=== PATIENT | male | born 1935 | race Caucasian/White ===

== ENCOUNTER 2017-02-14 17:26 | Emergency (ER) | payer OTHER ==
[~2017-02-14] VITALS: Ht 177.8 cm; Wt 75.0 kg
[~2017-02-14 17:26] MED LIST: ASPI81TA28 PO; ATEN50TA PO; LISI20TA3 PO; SIMV40TA2 PO
[2017-02-14 17:31] VITALS: TEMP 36.6; Ht 177.8 cm; Wt 75.0 kg
--- NOTE | 2017-02-14 18:25 | DIAGNOSTIC IMAGING REPORT ---
LEFT ELBOW MIN 3 VIEWS ROUTINE CLINICAL HISTORY: Left medial elbow pain, no trauma pain COMPARISON: None. DISCUSSION: Mild degenerative change all major joint compartments. Minimal reactive osteophytic changes throughout. Minimal/mild chondrocalcinosis. No evidence for fracture or dislocation. No joint effusion. IMPRESSION: Mild degenerative change. No acute bony abnormality Electronically signed by: Daniel Mandel M.D. 02/14/2017 6:23 PM Dictated Date/Time: 02/14/2017 6:22 PM
[2017-02-14] MEDS ORDERED: TNR50 PO (18:28)
[2017-02-14] MEDS ORDERED: ZCR40 PO (18:28)
[2017-02-14] MEDS ORDERED: LSN40 PO (18:28)
[2017-02-14] MEDS ORDERED: NRV/5 PO (18:28)
--- NOTE | 2017-02-14 19:07 | DIAGNOSTIC IMAGING REPORT ---
VENOUS DOPPLER LEFT ARM UPPER EXTREMITY VENOUS DOPPLER HISTORY: Pain. Edema. Left medial mid arm pain, transient. COMPARISON STUDY: None. FINDINGS: The internal jugular vein is patent. There is normal flow within the subclavian vein. There is normal flow and compressibility within the left axillary, basilic, brachial, radial, ulnar, and visualized cephalic veins. IMPRESSION: No DVT within the upper extremity. Electronically signed by: Daniel Mandel M.D. 02/14/2017 7:06 PM Dictated Date/Time: 02/14/2017 7:05 PM
--- NOTE | 2017-02-14 19:24 | EMERGENCY ROOM VISIT NOTE ---
ED Visit Note First contact with patient: 17:40 Patient was seen by our PA/BOAT CARPENTER. I was involved in the patient's care and did evaluate the patient myself. I was involved in the care throughout the ER stay. The patient's upper extremity ultrasound does not show DVT, films show no fracture. The patient no longer has pain. He was felt stable for discharge.
--- NOTE | 2017-02-14 19:28 | EMERGENCY ROOM VISIT NOTE ---
History First contact with patient: 17:40 Chief Complaint: ELBOW PAIN/INJURY Stated Complaint: SHARP LEFT ELBOW PAIN THAT COMES AND GOES History of Present Illness The patient is a 81 year old male who presents to the Emergency Room via private vehicle with complaints of "sharp left elbow pain that comes and goes". The patient states that 3-1/2-4 hours ago he was sitting at home when he developed a sharp stabbing pain just distal to the left medial epicondyle. He states that if he rubs this region and shoulder it would go away. It is transient in nature. He denies any history of blood clots, and does take a baby aspirin and lisinopril. He denies any chest pain or shortness of breath. He rates the pain as a 7/10. Review of Systems A complete 6-point Review of Systems was discussed with the patient, with pertinent positives and negatives listed in the History of Present Illness. All remaining Review of Systems questions can be considered negative unless otherwise specified. Past Medical/Surgical History Medical Problems: (1) Hypertension Triple bypass procedure. Family History No pertinent family history at this time. Social History Smoking Status: Never Smoker Marital Status: Housing Status: lives with family Occupation Status: retired Social History: Patient denies tobacco and alcohol products. Current/Historical Medications Scheduled Amlodipine Besylate (Amlodipine Besylate), 5 MG PO QAM Aspirin (Aspirin Ec), 81 MG PO DAILY Atenolol (Atenolol), 50 MG PO DAILY Lisinopril (Lisinopril), 20 MG PO DAILY Simvastatin (Simvastatin), 40 MG PO HS Allergies Coded Allergies: No Known Allergies (Verified , ., 09/23/14) Physical Exam Vital Signs Date Time Temp Pulse Resp B/P Pulse Ox O2 Delivery O2 Flow Rate FiO2 02/14/17 19:40 66 18 145/85 97 Room Air 02/14/17 17:31 36.6 59 16 150/74 97 Room Air Physical Exam VITAL SIGNS - Vital signs and nursing notes were reviewed. Patient is afebrile , slightly hypertensive at 150/74, non-tachycardic and is saturating well on room air 97%. GENERAL -81-year-old male appearing his stated age who is in no acute distress. Communicates well with provider and answers questions appropriately. SKIN - Without rashes. rashes. EXTREMITIES - No clubbing or peripheral cyanosis. No pretibial edema present. Patient is vascular intact in the left upper extremity. There is a palpable, tense muscle just distal to the left medial epicondyle. No bony tenderness. Neurovascularly intact in the left upper extremity. +5/5 strength noted in UE/ LE bilaterally. Medical Decision & Procedures ER Provider Diagnostic Interpretation: VENOUS DOPPLER LEFT ARM UPPER EXTREMITY VENOUS DOPPLER HISTORY: Pain. Edema. Left medial mid arm pain, transient. COMPARISON STUDY: None. FINDINGS: The internal jugular vein is patent. There is normal flow within the subclavian vein. There is normal flow and compressibility within the left axillary, basilic, brachial, radial, ulnar, and visualized cephalic veins. IMPRESSION: No DVT within the upper extremity. Electronically signed by: Daniel Mandel M.D. 02/14/2017 7:06 PM Dictated Date/Time: 02/14/2017 7:05 PM LEFT ELBOW MIN 3 VIEWS ROUTINE CLINICAL HISTORY: Left medial elbow pain, no trauma pain COMPARISON: None. DISCUSSION: Mild degenerative change all major joint compartments. Minimal reactive osteophytic changes throughout. Minimal/mild chondrocalcinosis. No evidence for fracture or dislocation. No joint effusion. IMPRESSION: Mild degenerative change. No acute bony abnormality Electronically signed by: Daniel Mandel M.D. 02/14/2017 6:23 PM Dictated Date/Time: 02/14/2017 6:22 PM Medical Decision Patient was seen and evaluated as above. After obtaining a thorough history and physical examination I did elect to obtain radiograph an ultrasound of the affected region as well as her was noted to trauma or recent overuse. Radiograph and ultrasound negative. As I was discussing the results with the patient, he notes that earlier today he was emptying cat food/litter and when doing so he was externally rotating his left upper extremity while attempting to do the bags. After he stated this portion of the history, it certainly is reasonable to suspect that the patient's pain is likely medial epicondylitis secondary to recent overuse with lifting the bags. He is not having any chest pain, shortness of breath, radiograph or ultrasound findings to indicate a bone or vascular ailment. No blood clot was noted. The patient was felt stable for discharge, was educated upon management of these findings. He was also evaluated by my attending. The patient seemed happy with plan of care, and was discharged to home with follow-up with his family doctor. He was educated upon worrisome symptoms which to return. He was discharged home in good condition. He denied any chest pain or shortness of breath. In the evaluation and treatment of this patient the following differential diagnoses were entertained: Medial epicondylitis, DVT, arterial compromise, bony fracture, among others. Impression Primary Impression: Medial epicondylitis of left elbow Departure Information Dispostion Home / Self-Care Condition GOOD Referrals Mateo Funk III, M.D. (PCP) Savage Spencer D.O. Patient Instructions My [facility] Additional Instructions You have been treated in the Emergency Department for Elbow Pain. For pain control, you can use the following [id number] medicines (if >12 yo): - Regular strength (325mg/tab) Tylenol (acetaminophen) 2 tabs every 4-6 hours as needed. Do not exceed 12 tablets in a 24 hour period. Avoid taking more than 4 grams (4000 mg) of Tylenol per day. This includes any other sources of acetaminophen you may take on a regular basis. - Regular strength (200 mg/tab) Advil (ibuprofen) 1-2 tabs every 4-6 hours as needed. Do not exceed a dose of 3200 mg per day. If this is a recent injury (<24 hrs), ice can be applied to the area of pain for the first 3 days to help decrease pain and inflammation. Please follow-up with your family doctor regarding today's visit. You have been provided the number for an Orthopaedic Surgeon. You should call this number as soon as possible to establish a follow-up visit from today's Emergency Department visit. () Return to the Emergency Department if your current symptoms worsen despite treatment course outlined above, or if you develop any of the following symptoms : intractable pain despite aforementioned treatment course or new onset of numbness or tingling of the arm. Please return to emergency department with any new/concerning symptoms.
[2017-02-14 19:40] VITALS: BP 145/85; PULSE 66; O2SAT 97
== END 2017-02-14 19:40 | disposition home or self-care (01) ==
LOC: C.EDB 17:28 → C.EDD 19:40
DX: M77.02 Medial epicondylitis, left elbow (principal); Z79.82 Long term (current) use of aspirin; Z79.899 Other long term (current) drug therapy; I10 Essential (primary) hypertension; Z95.1 Presence of aortocoronary bypass graft

== ENCOUNTER 2017-09-30 10:12 | Emergency (ER) | payer OTHER ==
[~2017-09-30] VITALS: Ht 177.8 cm; Wt 74.5 kg
[~2017-09-30 10:12] MED LIST changes: -ATEN50TA PO; -LISI20TA3 PO; +LSN40 PO; +NRV/5 PO; -SIMV40TA2 PO; +TNR50 PO; +ZCR40 PO
[2017-09-30 10:20] VITALS: TEMP 36.4
[2017-09-30] MEDS ORDERED: ALBUT/IPRATROP 3MG/0.5MG NEB 3 ML VIAL INH STA (10:35)
[2017-09-30 10:38] VITALS: O2SAT 98; Ht 177.8 cm; Wt 74.5 kg
--- NOTE | 2017-09-30 10:39 | EMERGENCY ROOM VISIT NOTE ---
History Report prepared by Jordan: Kisha Ovalles Under the Supervision of: Dr. Juwan Alexander D.O. First contact with patient: 10:24 Chief Complaint: CONGESTION Stated Complaint: CONGESTION History of Present Illness The patient is an 82 year old male who presents to the Emergency Room with complaints of persistent throat congestion starting 3 days ago. He has been coughing up a hard yellow mucous. He has never had this before. He denies any fever, chest pain, SOB, nasal congestion, pain or swelling in the legs. He does not smoke or drink. He has a history of hypertension. He denies any recent travel. Source of History: patient Onset: 3 days ago Position: throat Quality: other (congestion) Timing: other (persistent) Associated Symptoms: + cough, No fevers, No chest pain, No SOB Note: Pt denies nasal congestion, pain/swelling in the legs. Review of Systems See HPI for pertinent positives & negatives. A total of 10 systems reviewed and were otherwise negative. Past Medical & Surgical Medical Problems: (1) Hypertension Family History No pertinent family history stated. Social History Smoking Status: Former Smoker Marital Status: Housing Status: lives with family Occupation Status: retired Current/Historical Medications Scheduled Albuterol Hfa (Ventolin Hfa), 1 PUFF INH Q4 Amlodipine Besylate (Amlodipine Besylate), 5 MG PO QAM Amoxicillin & Pot Clavulanate (Augmentin 875-125 mg), 875 MG PO BID Aspirin (Aspirin Ec), 81 MG PO DAILY Atenolol (Atenolol), 50 MG PO DAILY Atorvastatin (Lipitor), 20 MG PO QPM Lisinopril (Lisinopril), 20 MG PO DAILY Allergies Coded Allergies: No Known Allergies (Verified , ., 09/30/17) Physical Exam Vital Signs Date Time Temp Pulse Resp B/P (MAP) Pulse Ox O2 Delivery O2 Flow Rate FiO2 09/30/17 11:43 52 16 146/74 98 Room Air 09/30/17 10:53 50 09/30/17 10:38 98 Room Air 09/30/17 10:37 98 Room Air 09/30/17 10:20 36.4 48 20 124/71 98 Room Air Physical Exam GENERAL: Patient is awake, alert, and in no acute distress. Patient is resting comfortably and showing no signs of anxiety EYES: The conjunctivae are clear. The pupils are round and reactive. EARS, NOSE, MOUTH AND THROAT: The nose is without any evidence of any deformity. Mucous membranes are moist tongue is midline NECK: The neck is nontender and supple. RESPIRATORY: Lung sounds diminished in the left lung field. Rales at the right base. No tachypnea or conversational dyspnea noted. CARDIOVASCULAR: Regular rate and rhythm noted there no murmurs rubs or gallops normal S1 normal S2 GASTROINTESTINAL: The abdomen is soft. Bowel sounds are present in all quadrants. Abdomen is nontender MUSCULOSKELETAL/EXTREMITIES: There is no evidence of gross deformity full range of motion is noted in the hips and shoulders SKIN: Trace pedal edema bilaterally. NEUROLOGIC: Patient is awake alert and oriented x3 Medical Decision & Procedures ER Provider Diagnostic Interpretation: X-ray results as stated below per interpretation by me and the radiologist. CHEST ONE VIEW PORTABLE HISTORY: 82 years-old Male EVALUATE RESPIRATORY DISTRESS.DYSPNEA acute shortness of breath with congestion COMPARISON: Chest radiograph 09/11/2014 TECHNIQUE: Upright AP view of the chest FINDINGS: Cardiac silhouette is mildly enlarged, unchanged. Prior median sternotomy. Surgical clips project over the left mediastinum suggesting prior CABG. There is atherosclerosis of the aorta. There is no pneumothorax or pleural effusion. Moderate left hemidiaphragmatic elevation redemonstrated with subsegmental left basilar scarring or atelectasis, unchanged. The right lung is clear. The bones of the chest are grossly intact. Degenerative changes involve the spine and shoulders. IMPRESSION: No acute cardiopulmonary process. The above report was generated using voice recognition software. It may contain grammatical, syntax or spelling errors. Electronically signed by: Reginald Vega M.D. 09/30/2017 10:46 AM Dictated Date/Time: 09/30/2017 10:44 AM Laboratory Results 09/30/17 10:50 Red Blood Count 4.24, Mean Corpuscular Volume 95.0, Mean Corpuscular Hemoglobin 32.3, Mean Corpuscular Hemoglobin Concent 34.0, Mean Platelet Volume 9.7, Neutrophils (%) (Auto) 73.7, Lymphocytes (%) (Auto) 12.1, Monocytes (%) (Auto) 11.0, Eosinophils (%) (Auto) 2.4, Basophils (%) (Auto) 0.3, Neutrophils # (Auto ) 6.51, Lymphocytes # (Auto) 1.07, Monocytes # (Auto) 0.97, Eosinophils # (Auto ) 0.21, Basophils # (Auto) 0.03 09/30/17 10:50 Test 09/30/17 10:50 09/30/17 11:33 White Blood Count 8.83 K/uL (4.8-10.8) Red Blood Count 4.24 M/uL (4.7-6.1) Hemoglobin 13.7 g/dL (14.0-18.0) Hematocrit 40.3 % (42-52) Mean Corpuscular Volume 95.0 fL (80-100) Mean Corpuscular Hemoglobin 32.3 pg (25-34) Mean Corpuscular Hemoglobin Concent 34.0 g/dl (32-36) Platelet Count 191 K/uL (130-400) Mean Platelet Volume 9.7 fL (7.4-10.4) Neutrophils (%) (Auto) 73.7 % Lymphocytes (%) (Auto) 12.1 % Monocytes (%) (Auto) 11.0 % Eosinophils (%) (Auto) 2.4 % Basophils (%) (Auto) 0.3 % Neutrophils # (Auto) 6.51 K/uL (1.4-6.5) Lymphocytes # (Auto) 1.07 K/uL (1.2-3.4) Monocytes # (Auto) 0.97 K/uL (0.11-0.59) Eosinophils # (Auto) 0.21 K/uL (0-0.5) Basophils # (Auto) 0.03 K/uL (0-0.2) RDW Standard Deviation 44.7 fL (36.4-46.3) RDW Coefficient of Variation 12.9 % (11.5-14.5) Immature Granulocyte % (Auto) 0.5 % Immature Granulocyte # (Auto) 0.04 K/uL (0.00-0.02) Prothrombin Time 10.7 SECONDS (9.0-12.0) Prothromb Time International Ratio 1.0 (0.9-1.1) Activated Partial Thromboplast Time 29.2 SECONDS (21.0-31.0) Partial Thromboplastin Ratio 1.1 Anion Gap 8.0 mmol/L (3-11) Est Creatinine Clear Calc Drug Dose 58.4 ml/min Estimated GFR () 81.3 Estimated GFR (Non- 70.1 BUN/Creatinine Ratio 16.9 (10-20) Calcium Level 8.6 mg/dl (8.5-10.1) Total Bilirubin 0.5 mg/dl (0.2-1) Aspartate Amino Transf (AST/SGOT) 22 U/L (15-37) Alanine Aminotransferase (ALT/SGPT) 34 U/L (12-78) Alkaline Phosphatase 75 U/L (45-117) Troponin I < 0.015 ng/ml (0-0.045) Pro-B-Type Natriuretic Peptide 1689 pg/ml (0-1800) Total Protein 7.1 gm/dl (6.4-8.2) Albumin 3.6 gm/dl (3.4-5.0) Globulin 3.5 gm/dl (2.5-4.0) Albumin/Globulin Ratio 1.0 (0.9-2) Urine Color YELLOW Urine Appearance CLEAR (CLEAR) Urine pH 8.0 (4.5-7.5) Urine Specific [place] 1.020 (1.000-1.030) Urine Protein NEG (NEG) Urine Glucose (UA) NEG (NEG) Urine Ketones NEG (NEG) Urine Occult Blood NEG (NEG) Urine Nitrite NEG (NEG) Urine Bilirubin NEG (NEG) Urine Urobilinogen NEG (NEG) Urine Leukocyte Esterase TRACE (NEG) Urine WBC (Auto) 1-5 /hpf (0-5) Urine RBC (Auto) 0-4 /hpf (0-4) Urine Hyaline Casts (Auto) 1-5 /lpf (0-5) Urine Epithelial Cells (Auto) 5-10 /lpf (0-5) Urine Bacteria (Auto) NEG (NEG) Laboratory results per my review. Medications Administered Medications (Trade) Dose Ordered Sig/Stephanie Route Start Time Stop Time Status Last Admin Dose Admin Albuterol/ Ipratropium (Duoneb) 3 ml NOW STAT INH 09/30/17 10:35 09/30/17 10:37 DC 09/30/17 10:56 3 ML Amoxicillin/ Clavulanate Potassium (Augmentin Tab) 875 mg ONE ONCE PO 09/30/17 11:45 09/30/17 11:46 DC 09/30/17 11:59 875 MG ECG Indication: bradycardia Rate (beats per minute): 50 Rhythm: sinus bradycardia Findings: 1st degree AV block, other (no acute ST segment abnormality) Comparison ECG Date: 24-Sep-2014 Change: 1st degree AV block is new. ED Course 1029: The patient was evaluated in room B8. A complete history and physical examination were performed. 1035: Duoneb 3 ml INH. 1137: Upon reevaluation, the patient is resting comfortably. I discussed the results and treatment plan with him. He verbalized agreement of the treatment plan. He was discharged home. 1145: Augmentin Tab 875 mg PO. Medical Decision Prior records/ancillary studies reviewed. Triage Nursing notes reviewed. The patient's history was concerning for respiratory difficulties. Differential diagnosis: Etiologies such as infections, reactive airway disease, pneumonia, pneumothorax , COPD, CHF, cardiac ischemia, pulmonary embolism, musculoskeletal, gastrointestinal, as well as others were entertained. The patient is an 82-year-old male who presented to the emergency department with productive cough. The patient's age further tests were obtained to ensure that this was not a cardiac source or possibly a significant pneumonia. The patient was given a DuoNeb treatment and started on antibiotics. I discussed the patient's laboratory and radiographic studies with him. He was encouraged to rest and avoid any strenuous activity. He was also encouraged to call his primary care physician in the morning and schedule follow-up appointment. Otherwise she was encouraged to return to the emergency Department immediately if symptoms change worsen or the need arises. Medication Reconcilliation Current Medication List: was personally reviewed by me Blood Pressure Screening Patient's blood pressure: Normal blood pressure Blood pressure disposition: Did not require urgent referral Impression Primary Impression: Bronchitis Scribe Attestation The scribe's documentation has been prepared under my direction and personally reviewed by me in its entirety. I confirm that the note above accurately reflects all work, treatment, procedures, and medical decision making performed by me. Departure Information Dispostion Home / Self-Care Prescriptions Amoxicillin & Pot Clavulanate (Augmentin 875-125 mg) 1 Tab Tab 875 MG PO BID for 7 Days, #14 TAB Prov: Juwan Alexander DO 09/30/17 Albuterol Hfa (VENTOLIN HFA) 200 Puffs/46557 Mcg Aers 1 PUFF INH Q4, #1 INHALER Prov: Juwan Alexander DO 09/30/17 Referrals Mateo Funk III, M.D. (PCP) Forms HOME CARE DOCUMENTATION FORM, IMPORTANT VISIT INFORMATION Patient Instructions Bronchitis Acute, My [facility] Additional Instructions Continue all medications as prescribed. Rest and avoid any strenuous activity. Call your family in the morning to schedule a follow-up appointment. Return to the emergency department immediately if symptoms change worsen or the need arises.
--- NOTE | 2017-09-30 10:47 | DIAGNOSTIC IMAGING REPORT ---
CHEST ONE VIEW PORTABLE HISTORY: 82 years-old Male EVALUATE RESPIRATORY DISTRESS.DYSPNEA acute shortness of breath with congestion COMPARISON: Chest radiograph 09/11/2014 TECHNIQUE: Upright AP view of the chest FINDINGS: Cardiac silhouette is mildly enlarged, unchanged. Prior median sternotomy. Surgical clips project over the left mediastinum suggesting prior CABG. There is atherosclerosis of the aorta. There is no pneumothorax or pleural effusion. Moderate left hemidiaphragmatic elevation redemonstrated with subsegmental left basilar scarring or atelectasis, unchanged. The right lung is clear. The bones of the chest are grossly intact. Degenerative changes involve the spine and shoulders. IMPRESSION: No acute cardiopulmonary process. The above report was generated using voice recognition software. It may contain grammatical, syntax or spelling errors. Electronically signed by: Reginald Vega M.D. 09/30/2017 10:46 AM Dictated Date/Time: 09/30/2017 10:44 AM
[2017-09-30 11:03] LABS: BASO % 0.3 %; BASO ABS # 0.03 K/uL (0-0.2); COMPLETE YES; EOS % 2.4 %; HEMATOCRIT 40.3 % (42-52); IG% 0.5 %; LYMPH % 12.1 %; LYMPH ABS # 1.07 K/uL (1.2-3.4); MEAN CORPUSCULAR HEMOGLOBIN 32.3 pg (25-34); MEAN PLATELET VOLUME 9.7 fL (7.4-10.4); NEUT % 73.7 %; PLATELET COUNT 191 K/uL (130-400); RED BLOOD COUNT 4.24 M/uL (4.7-6.1); WHITE BLOOD COUNT 8.83 K/uL (4.8-10.8)
[2017-09-30 11:13] LABS: PARTIAL THROMBOPLASTIN RATIO 1.1; PROTHROMBIN TIME (PATIENT) 10.7 SECONDS (9.0-12.0)
[2017-09-30 11:20] LABS: ALT/SGPT 34 U/L (12-78); AST/SGOT 22 U/L (15-37); BLOOD UREA NITROGEN 17 mg/dl (7-18); BUN/CREATININE RATIO 16.9 (10-20); CALCIUM 8.6 mg/dl (8.5-10.1); CARBON DIOXIDE 28 mmol/L (21-32); CHLORIDE 106 mmol/L (98-107); CREATININE 0.99 mg/dl (0.60-1.40); GLUCOSE 99 mg/dl (70-99); SODIUM 142 mmol/L (136-145)
[2017-09-30 11:25] LABS: ALKALINE PHOSPHATASE 75 U/L (45-117)
[2017-09-30] MEDS ORDERED: ATOR-54 PO (11:30)
[2017-09-30] MEDS ORDERED: AMOX875T PO (11:41)
[2017-09-30] MEDS ORDERED: VNTHFA/IN INH (11:41)
[2017-09-30 11:43] VITALS: BP 146/74; PULSE 52; O2SAT 98
[2017-09-30] MEDS ORDERED: AMOXICILLIN/CLAVULANATE TAB 875 MG TAB PO ONE (11:45)
[2017-09-30 12:00] LABS: URINE APPEARANCE CLEAR (CLEAR); URINE BILIRUBIN NEG (NEG); URINE COLOR YELLOW; URINE NITRITE NEG (NEG); UROBILINOGEN NEG (NEG)
[2017-09-30 12:04] LABS: MANUAL MICROSCOPIC REQUIRED? NO; REVIEW REQ? NO
[2017-09-30 12:06] LABS: SULFASALICYLIC ACID NEG (NEG)
== END 2017-09-30 12:01 | disposition home or self-care (01) ==
LOC: C.EDB 10:13
DX: J40 Bronchitis, not specified as acute or chronic (principal); I10 Essential (primary) hypertension; Z87.891 Personal history of nicotine dependence; Z79.82 Long term (current) use of aspirin

== ENCOUNTER 2018-07-13 17:32 | Emergency (ER) | payer OTHER ==
[~2018-07-13] VITALS: Ht 177.8 cm; Wt 74.2 kg
[~2018-07-13 17:32] MED LIST changes: +ATOR-54 PO; -LSN40 PO; -NRV/5 PO; -TNR50 PO; -ZCR40 PO
[2018-07-13 17:42] VITALS: Ht 177.8 cm; Wt 74.2 kg
[2018-07-13] MEDS ORDERED: CEFTRIAXONE SOD INJ 1 GM ADDVIAL IV STA (17:52)
[2018-07-13] MEDS ORDERED: ACETAMINOPHEN 500 MG TAB PO STA (17:52)
[2018-07-13] MEDS ORDERED: SODIUM CHLORIDE 0.9% 500ML 500 ML IV STA (18:00)
--- NOTE | 2018-07-13 18:16 | EMERGENCY ROOM VISIT NOTE ---
History Report prepared by Jordan: Caroline Ricks Under the Supervision of: Dr. Mike Camarena M.D. First contact with patient: 17:45 Chief Complaint: HAND PAIN/INJURY Stated Complaint: PAIN IN RIGHT HAND, SPRAIN History of Present Illness The patient is an 83 year old male who presents to the Emergency Room with complaints of persistent right wrist pain that began 2 days ago. He rates the pain as a "7 or 8 when he moves it" out of 10. At night, when he is sleeping, he states "it gets hard as a rock and hurts like hell." The patient believes the pain began when he was opening a jar and fixing a faucet with a wrench yesterday. He has a history of a previous right wrist injury and states the wrist has been crooked since. His wrist is swollen and red. The patient denies having any fevers or vomiting. He does not have diabetes, but states he takes lisinopril for his blood pressure. He does not take daily blood thinners other than aspirin. According to the patient's son, he is worried about a possible cellulitis. The patient states he does have an appointment this coming week with Dr. Fuentes, of [facility]. He states his previous wrist injury was treated by Dr. Yun of [facility]. Source of History: patient, family (son) Onset: 2 days [employer] Position: hand (right) Symptom Intensity: 7 to 8/10 Timing: other (persistent) Modifying Factors (Worsening): movement, other (sleeping) Associated Symptoms: No fevers, No vomiting Review of Systems See HPI for pertinent positives & negatives. A total of 10 systems reviewed and were otherwise negative. Past Medical & Surgical Medical Problems: (1) Hypertension Social History Smoking Status: Former Smoker Alcohol Use: none Drug Use: none Marital Status: Housing Status: lives with family Occupation Status: retired Current/Historical Medications Scheduled Amlodipine Besylate (Amlodipine Besylate), 5 MG PO QAM Aspirin (Aspirin Ec), 81 MG PO QAM Atenolol (Atenolol), 50 MG PO QAM Atorvastatin (Lipitor), 20 MG PO QPM Cephalexin Monohydrate (Keflex), 500 MG PO TID Ketorolac Tromethamine (Toradol), 1 TAB PO TID Lisinopril (Lisinopril), 20 MG PO QAM Allergies Coded Allergies: No Known Allergies (Verified , ., 05/27/18) Physical Exam Vital Signs Date Time Temp Pulse Resp B/P (MAP) Pulse Ox O2 Delivery O2 Flow Rate FiO2 07/13/18 17:42 37.1 52 18 135/73 98 Room Air Physical Exam GENERAL: Patient is in no acute distress. HEENT: No acute trauma, normocephalic atraumatic, mucous membranes moist, no nasal congestion, no scleral icterus. NECK: No stridor, no adenopathy, no meningismus, trachea is midline. LUNGS: Decreased breath sounds bilaterally, breath sounds are equal, no wheezing , no respiratory distress. HEART: 2/6 systolic murmur, regular rhythm, patient is mildly bradycardic. ABDOMEN: Soft, nontender, bowel sounds positive, no hernias, no peritonitis. EXTREMITIES: Right wrist has prior deformity noted, swelling from dorsal portion of right hand to distal forearm, warmth and erythema in the same area. There is an area of fullness/fluctuance over the radial aspect of the wrist. This area of fullness is tender. No real pain with movement of the wrist joint. NEUROLOGIC: Oriented x 3, no acute motor or sensory deficits, no focal weakness. SKIN: No rash, no jaundice, no diaphoresis. Medical Decision & Procedures ER Provider Diagnostic Interpretation: Radiology results as stated below per my review and radiologist interpretation: CT RIGHT WRIST NO CONTRAST CT DOSE: 234.29 mGy.cm CLINICAL HISTORY: Right wrist pain and swelling. History of prior fracture. TECHNIQUE: Helical images were acquired in the transverse plane. Sagittal and coronal reformatted images were acquired. A dose lowering technique was utilized adhering to the principles of ALARA. COMPARISON STUDY: Conventional radiographic study performed June 2015 FINDINGS: There is dorsal soft tissue edema. There is fluid within the extensor tendon sheaths on the radial aspect of the wrist. There are no fluid collections to indicate an abscess. There are old posttraumatic changes involving the radius. There is an old ununited ulnar styloid fracture. There are large subchondral cysts within the radius. There is an old ununited scaphoid fracture. There are advanced arthritic changes present within the carpal bones. There are degenerative cysts present within the ventricular, trapezoid, capitate, hamate, and triquetrum. There are multiple bony fragments present within the mid carpal region. There is evidence for a carpal instability pattern with dorsal rotation of the lunate. IMPRESSION: 1. 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 2. Carpal instability pattern 3. Soft tissue edema. 4. Tenosynovitis involving the extensor tendons 5. No CT evidence of soft tissue abscess Electronically signed by: Hill Howard M.D. 07/13/2018 7:10 PM Laboratory Results 07/13/18 18:05 Red Blood Count 4.26, Mean Corpuscular Volume 93.0, Mean Corpuscular Hemoglobin 31.2, Mean Corpuscular Hemoglobin Concent 33.6, Mean Platelet Volume 9.6, Neutrophils (%) (Auto) 75.8, Lymphocytes (%) (Auto) 14.0, Monocytes (%) (Auto) 8.2, Eosinophils (%) (Auto) 1.4, Basophils (%) (Auto) 0.4, Neutrophils # (Auto) 6.82, Lymphocytes # (Auto) 1.26, Monocytes # (Auto) 0.74, Eosinophils # (Auto) 0.13, Basophils # (Auto) 0.04 07/13/18 18:05 Test 07/13/18 18:05 07/13/18 18:32 White Blood Count 9.01 K/uL (4.8-10.8) Red Blood Count 4.26 M/uL (4.7-6.1) Hemoglobin 13.3 g/dL (14.0-18.0) Hematocrit 39.6 % (42-52) Mean Corpuscular Volume 93.0 fL (80-100) Mean Corpuscular Hemoglobin 31.2 pg (25-34) Mean Corpuscular Hemoglobin Concent 33.6 g/dl (32-36) Platelet Count 194 K/uL (130-400) Mean Platelet Volume 9.6 fL (7.4-10.4) Neutrophils (%) (Auto) 75.8 % Lymphocytes (%) (Auto) 14.0 % Monocytes (%) (Auto) 8.2 % Eosinophils (%) (Auto) 1.4 % Basophils (%) (Auto) 0.4 % Neutrophils # (Auto) 6.82 K/uL (1.4-6.5) Lymphocytes # (Auto) 1.26 K/uL (1.2-3.4) Monocytes # (Auto) 0.74 K/uL (0.11-0.59) Eosinophils # (Auto) 0.13 K/uL (0-0.5) Basophils # (Auto) 0.04 K/uL (0-0.2) RDW Standard Deviation 45.7 fL (36.4-46.3) RDW Coefficient of Variation 13.5 % (11.5-14.5) Immature Granulocyte % (Auto) 0.2 % Immature Granulocyte # (Auto) 0.02 K/uL (0.00-0.02) Anion Gap 10.0 mmol/L (3-11) Est Creatinine Clear Calc Drug Dose 59.8 ml/min Estimated GFR () 84.9 Estimated GFR (Non- 73.2 BUN/Creatinine Ratio 23.3 (10-20) Calcium Level 8.9 mg/dl (8.5-10.1) Lactic Acid Level 0.8 mmol/L (0.4-2.0) Laboratory results reviewed by me. Medications Administered Medications (Trade) Dose Ordered Sig/Stephanie Route Start Time Stop Time Status Last Admin Dose Admin Ceftriaxone Sodium (Rocephin Inj) 1 gm NOW STAT IV 07/13/18 17:52 07/13/18 17:56 DC 07/13/18 17:52 1 GM Acetaminophen (Tylenol Tab) 1,000 mg NOW STAT PO 07/13/18 17:52 07/13/18 17:56 DC 07/13/18 17:52 1,000 MG Sodium Chloride 500 ml @ 999 mls/hr Q31M STAT IV 07/13/18 18:00 07/13/18 18:30 DC 07/13/18 18:00 999 MLS/HR Ketorolac Tromethamine (Toradol Inj) 15 mg NOW STAT IV 07/13/18 19:22 07/13/18 19:23 DC 07/13/18 19:22 15 MG ED Course 174: The patient was evaluated in room C3. A complete history and physical exam was performed. 175: Acetaminophen 1000mg PO, Rocephin Injection 1gm IV. 1800: Sodium Chloride 500 ml @ 999 mls/hr IV. 1918: I discussed the patients case with Alfredo Romero and [facility]. He recommends the patient try a non-steroidal and antibiotics and he will follow up with the patient in the office. 192: Toradol 15 mg IV Medical Decision The differential diagnoses considered include: cellulitis, septic joint, abscess , bacteremia, sepsis, fracture and strain. There is no leukocytosis or concerning anemia. No significant electrolyte abnormality or kidney failure. Blood cultures are pending. Lactic acid level is not elevated making sepsis less likely. On exam, there was some erythema to the dorsal aspect of the wrist with some swelling. There is an area of fluctuance as well. No evidence for septic joint as he had minimal pain with wrist movement. Right wrist CT shows evidence for old trauma. There was no abscess seen. Tenosynovitis was noted. Patient received IV saline, IV ceftriaxone, IV Toradol. He was given oral Tylenol for pain control. He is resting comfortably. I spoke with Dr. Fuentes of orthopedics. He felt the patient could be discharged with good follow-up in a few days. He will see the patient in the office. He requested Toradol for a few days, Keflex for a few days, ice and elevation. At this point, the cause for this presentation is not completely clear. This could be cellulitis, could be gout or pseudogout. The patient is being treated for both scenarios. Medication Reconcilliation Current Medication List: was personally reviewed by me Blood Pressure Screening Patient's blood pressure: Elevated blood pressure Blood pressure disposition: Elevated BP felt to be situational Consults Time Called: 1912 Consulting Physician: Alfredo Romero and [facility] Returned Call: 1918 I discussed the patients case with Alfredo Romero and [facility]. He recommends the patient try a non-steroidal and antibiotics and he will follow up with the patient in the office. Impression Primary Impression: Cellulitis Additional Impression: Swelling of joint, wrist, right Scribe Attestation The scribe's documentation has been prepared under my direction and personally reviewed by me in its entirety. I confirm that the note above accurately reflects all work, treatment, procedures, and medical decision making performed by me. Departure Information Dispostion Home / Self-Care Prescriptions Cephalexin Monohydrate (Keflex) 500 Mg Cap 500 MG PO TID for 7 Days, #21 CAP Prov: Mike Camarena M.D. 07/13/18 Ketorolac Tromethamine (TORADOL) 10 Mg Tab 1 TAB PO TID for 4 Days, #12 TAB Prov: Mike Camarena M.D. 07/13/18 Referrals Mateo Funk III, M.D. (PCP) Patient Instructions [facility] Additional Instructions keflex 3x per day for 1 week use toradol 1 tab 3x per day for 4 days use tylenol for additional pain control try to keep the arm elevated may use ice for pain and swelling see orthopedics sunday or sunday--call sunday am for an appt return for worsening symptoms or fever Problem Qualifiers
[2018-07-13 18:18] LABS: BASO % 0.4 %; BASO ABS # 0.04 K/uL (0-0.2); EOS % 1.4 %; EOS ABS # 0.13 K/uL (0-0.5); HEMATOCRIT 39.6 % (42-52); HEMOGLOBIN 13.3 g/dL (14.0-18.0); IG# 0.02 K/uL (0.00-0.02); LYMPH ABS # 1.26 K/uL (1.2-3.4); MEAN CORPUSCULAR HEMOGLOBIN 31.2 pg (25-34); MEAN CORPUSCULAR HGB CONC 33.6 g/dl (32-36); MEAN PLATELET VOLUME 9.6 fL (7.4-10.4); MONO % 8.2 %; MONO ABS # 0.74 K/uL (0.11-0.59); NEUT % 75.8 %; NEUT ABS # 6.82 K/uL (1.4-6.5); PLATELET COUNT 194 K/uL (130-400); RED CELL DISTRIBUTION WIDTH CV 13.5 % (11.5-14.5); RED CELL DISTRIBUTION WIDTH SD 45.7 fL (36.4-46.3); WHITE BLOOD COUNT 9.01 K/uL (4.8-10.8)
[2018-07-13] MEDS ORDERED: ATOR-22 PO (18:22)
[2018-07-13] MEDS ORDERED: LISI40TA3 PO (18:28)
[2018-07-13] MEDS ORDERED: NRV/5 PO (18:28)
[2018-07-13] MEDS ORDERED: TNR50 PO (18:28)
[2018-07-13 18:35] LABS: CALCIUM 8.9 mg/dl (8.5-10.1); CREATININE 0.95 mg/dl (0.60-1.40); POTASSIUM 3.9 mmol/L (3.5-5.1)
--- NOTE | 2018-07-13 19:12 | DIAGNOSTIC IMAGING REPORT ---
CT RIGHT WRIST NO CONTRAST CT DOSE: 234.29 mGy.cm CLINICAL HISTORY: Right wrist pain and swelling. History of prior fracture. TECHNIQUE: Helical images were acquired in the transverse plane. Sagittal and coronal reformatted images were acquired. A dose lowering technique was utilized adhering to the principles of ALARA. COMPARISON STUDY: Conventional radiographic study performed June 2015 FINDINGS: There is dorsal soft tissue edema. There is fluid within the extensor tendon sheaths on the radial aspect of the wrist. There are no fluid collections to indicate an abscess. There are old posttraumatic changes involving the radius. There is an old ununited ulnar styloid fracture. There are large subchondral cysts within the radius. There is an old ununited scaphoid fracture. There are advanced arthritic changes present within the carpal bones. There are degenerative cysts present within the ventricular, trapezoid, capitate, hamate, and triquetrum. There are multiple bony fragments present within the mid carpal region. There is evidence for a carpal instability pattern with dorsal rotation of the lunate. IMPRESSION: 1. 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 2. Carpal instability pattern 3. Soft tissue edema. 4. Tenosynovitis involving the extensor tendons 5. No CT evidence of soft tissue abscess Electronically signed by: Hill Howard M.D. 07/13/2018 7:10 PM Dictated Date/Time: 07/13/2018 7:02 PM
[2018-07-13] MEDS ORDERED: KETOROLAC TROMETHAMINE 30 MG/ML VIAL IV STA (19:22)
[2018-07-13] MEDS ORDERED: KETO10TA PO (19:28)
[2018-07-13] MEDS ORDERED: CEPH500C PO (19:28)
[2018-07-13 19:51] VITALS: BP 169/88; PULSE 57; TEMP 37.1; O2SAT 97
== END 2018-07-13 19:52 | disposition home or self-care (01) ==
LOC: C.EDB 17:33 → C.EDC 19:52
DX: L03.113 Cellulitis of right upper limb (principal); R60.0 Localized edema; I10 Essential (primary) hypertension; Z79.82 Long term (current) use of aspirin; Z79.899 Other long term (current) drug therapy; Z87.891 Personal history of nicotine dependence

== ENCOUNTER 2019-05-17 19:34 | Inpatient (IN) ==
[2019-05-17] MEDS ORDERED: ALBUT/IPRATROP 3MG/0.5MG NEB 3 ML VIAL NEB STA (19:57)
[2019-05-17 20:18] LABS: Basophils # (auto) 0.02 K/uL (0-0.2); Basophils % (auto) 0.3 %; Eosinophils # (auto) 0.01 K/uL (0-0.5); Eosinophils % (auto) 0.1 %; Hemoglobin 13.3 g/dL (14.0-18.0); Immature Granulocytes # (auto) 0.02 K/uL (0.00-0.02); Immature Granulocytes % (auto) 0.3 %; Lymphocytes # (auto) 0.98 K/uL (1.2-3.4); Lymphocytes % (auto) 12.5 %; Mean Corpuscular Hgb Conc 33.3 g/dL (32-36); Mean Corpuscular Volume 94.1 fL (80-100); Mean Platelet Volume 9.3 fL (7.4-10.4); Monocytes # (auto) 0.89 K/uL (0.11-0.59); Monocytes % (auto) 11.3 %; Neutrophils # (auto) 5.93 K/uL (1.4-6.5); Neutrophils % (auto) 75.5 %; Platelet Count 183 K/uL (130-400); RDW Coefficient of Variation 14.1 % (11.5-14.5); RDW Standard Deviation 48.6 fL (36.4-46.3); Red Blood Count 4.25 M/uL (4.7-6.1); White Blood Count 7.85 K/uL (4.8-10.8)
--- NOTE | 2019-05-17 20:25 | XRay Report ---
SINGLE VIEW PELVIS; 2 VIEWS RIGHT HIP CLINICAL HISTORY: Fall. FINDINGS: An AP portable view of the pelvis with AP and frog-leg views of the right hip are compared to study dated 01/10/2013. The skeletal structures are osteopenic. There is no radiographic evidence o f fracture involving the left hip or the bony pelvis. Suspect a nondistracted fracture through the gr eater trochanter of the right femur. This is only seen on the frog-leg view. A bipolar right hip arth roplasty is in near anatomic alignment. No periprosthetic lucency is seen. Mild to moderate degenerat alondra change and joint space narrowing is seen in the left hip. The sacroiliac joints are preserved. Th e overlying soft tissues are normal in appearance. There is atherosclerotic calcification of the femo ral arteries. There is no evidence of bowel obstruction. IMPRESSION: 1. Suspect a nondistracted fracture through the greater trochanter of the right femur. Correlate for point tenderness. 2. No fracture seen involving the left hip or the bony pelvis. Electronically signed by: Mike Forde M.D. 05/17/2019 8:24 PM
[2019-05-17 20:26] LABS: INR 1.1 (0.9-1.1); Partial Thromboplastin Ratio 0.9; Partial Thromboplastin Time 25.1 Seconds (21.0-31.0); Prothrombin Time 10.9 Seconds (9.0-12.0)
--- NOTE | 2019-05-17 20:26 | XRay Report ---
SINGLE VIEW CHEST CLINICAL HISTORY: Fall. Dyspnea. Dizziness. FINDINGS: An AP, portable, upright chest radiograph is compared to study dated 04/14/2019. The examina tion is degraded by portable technique and patient rotation. The patient is status post midline evon rnotomy. The heart is enlarged and there is atherosclerotic calcification of the thoracic aorta. The pulmonary vasculature is noncongested. Chronic interstitial thickening and elevation of the left quinton diaphragm are similar to previous. There is bibasilar atelectasis. No airspace consolidation or large pleural effusion is identified. No pneumothorax is seen. The skeletal structures are osteopenic. The bony thorax is grossly intact. IMPRESSION: Cardiomegaly with no acute cardiopulmonary abnormality. Electronically signed by: Mike Forde M.D. 05/17/2019 8:25 PM
[2019-05-17 20:37] LABS: Alanine Aminotransferase 43 U/L (12-78); Albumin Level 3.8 gm/dl (3.4-5.0); Aspartate Aminotransferase 27 U/L (15-37); Blood Urea Nitrogen 26 mg/dl (7-18); Calcium 8.9 mg/dl (8.5-10.1); Carbon Dioxide 27 mmol/L (21-32); Chloride 102 mmol/L (98-107); Creatinine Clr Calc Pharmacy 47.2 ml/min; Est GFR (African American) 70.6; Est GFR (Non-African American) 60.9; Glucose 148 mg/dl (70-99); Magnesium 2.5 mg/dl (1.8-2.4); Potassium 4.3 mmol/L (3.5-5.1); Sodium 136 mmol/L (136-145)
[2019-05-17 20:48] LABS: Alkaline Phosphatase 80 U/L (45-117); Bilirubin,Total 0.4 mg/dl (0.2-1); Globulin 3.7 gm/dl (2.5-4.0); NT Pro B Type Natriuretic Pept 1351 pg/ml (0-1800); Total Protein 7.5 gm/dl (6.4-8.2); Troponin I < 0.015 ng/ml (0-0.045)
[2019-05-17 20:54] LABS: D Dimer 3700 ug/L FEU (0-500)
[2019-05-17] MEDS ORDERED: OPTIRAY 320 125ml IV PRN (21:07)
--- NOTE | 2019-05-17 21:13 | CT Scan Report ---
CT SCAN OF THE BRAIN WITHOUT IV CONTRAST CLINICAL HISTORY: Generalized weakness. COMPARISON STUDY: CT of the brain dated 04/09/2019. TECHNIQUE: Unenhanced axial CT scan of the brain is performed from the vertex to the skull base. A do se lowering technique was utilized adhering to the principles of ALARA. CT DOSE: 614.27 mGy.cm FINDINGS: Brain parenchyma: There are age-related involutional changes noting mild to moderate subcortical and periventricular microangiopathic change. There is no hemorrhage, mass effect, or evidence of acute t erritorial ischemia by CT criteria. Dunaway-white matter differentiation is preserved. No extra-axial fl uid collection is seen. Ventricles, sulci, cisterns: Prominent secondary to involutional change. Intracranial vasculature: There is atherosclerotic calcification of the cavernous carotid and vertebr al arteries. Calvarium: Skeletal structures are osteopenic. The calvarium appears intact. Sinuses and mastoids: There is a 13 mm retention cyst in the left maxillary antrum. Mild mucosal thic kening is noted in the ethmoid sinuses. The remaining Visualized paranasal sinuses are clear. The mas toid air cells are well pneumatized. Orbits: The bony orbits are grossly intact. There are bilateral ocular lens implants. IMPRESSION: There is no hemorrhage, mass effect, or evidence of acute territorial ischemia by CT chris moore. Electronically signed by: Mike Forde M.D. 05/17/2019 9:11 PM
--- NOTE | 2019-05-17 21:24 | CT Scan Report ---
CT SCAN OF THE RIGHT HIP WITHOUT IV CONTRAST CLINICAL HISTORY: Fall with right hip pain. COMPARISON STUDY: Radiographs of the right hip dated 05/17/2019. TECHNIQUE: CT scan of the right hip is performed from the bony pelvis to the proximal femoral shaft. Images are reviewed in the axial, sagittal, and coronal planes. IV contrast was not administered for this examination. 3-D reformats are created and assessed. A dose lowering technique was utilized ad shawn to the principles of ALARA. The examination is degraded by metallic streak artifact from a rig ht hip arthroplasty. CT DOSE: 398.69 mGy.cm FINDINGS: The skeletal structures are osteopenic. A bipolar right hip arthroplasty is in place. There is a minimally distracted fracture through the greater trochanter of the right femur which extends t o the arthroplasty as well as the both the anterior and lateral cortex. There is a small anteriorly d istracted fragment. The visualized femoral shaft is intact, as is the visualized right hemipelvis. Th ere is only mild overlying soft tissue edema. The regional musculature is normal in appearance, with no intramuscular hematoma identified. Atherosclerotic calcification is noted in the right femoral art naa. There is no right pelvic sidewall or right inguinal adenopathy. Fecal retention is noted in the rectosigmoid colon. IMPRESSION: 1. There is a minimally distracted fracture through the greater trochanter of the right femur as abov e. This extends to the arthroplasty. 2. No additional fracture is seen. Electronically signed by: Mike Forde M.D. 05/17/2019 9:23 PM
--- NOTE | 2019-05-17 21:34 | CT Scan Report ---
CT ANGIOGRAM OF THE CHEST CLINICAL HISTORY: Elevated d-dimer. COMPARISON STUDY: Chest x-ray dated 05/17/2019. TECHNIQUE: Following the IV administration of 82 cc of Optiray 320, CT angiogram of the chest was per formed from the upper abdomen to the thoracic inlet utilizing the pulmonary embolus protocol. Images are reviewed in the axial, sagittal, and coronal planes. 3-D MIPS images are created and assessed. IV contrast was administered without complication. A dose lowering technique was utilized adhering to the principles of ALARA. The examination is modestly degraded by motion artifact. CT DOSE: 278.17 mGy.cm FINDINGS: Thyroid: Imaged portions of the thyroid gland are normal in size and heterogeneous in attenuation. Thoracic aorta: There is mild atherosclerotic calcification of the thoracic aorta, which is normal in caliber and demonstrates standard 3-vessel arch anatomy. No dissection is seen. Pulmonary vasculature: The pulmonary trunk is normal in caliber. There are no filling defects identif ied in main, lobar, or segmental pulmonary branches to suggest pulmonary embolus. Evaluation of the p eripheral branches in the right lower lobe is degraded by motion artifact. Heart: The patient is status post midline sternotomy. The heart is enlarged and without pericardial e ffusion. The coronary arteries are densely calcified. Lungs and pleural spaces: There is elevation of left hemidiaphragm with dependent airspace opacities at the left lung base. There are trace pleural effusions, left larger than right. The trachea and britany tral airways are clear. Mediastinum: There are mildly enlarged mediastinal lymph nodes, several of which contain coarse calci fications. A subcarinal node measures 12 mm in short axis. Precarinal nodes measure up to 10 mm in sh ort axis. Hina: Clear. Axillae: There is no axillary lymphadenopathy. Upper abdomen: Partially visualized upper abdominal viscera is grossly unremarkable. Skeletal structures: The skeletal structures are osteopenic. Degenerative change and hyperkyphosis ar e noted in the thoracic spine. There are mild and age indeterminant superior endplate compression def ormities of T3, T4, and T5. No lytic or blastic bony lesions are seen. IMPRESSION: 1. There is no evidence of pulmonary embolus in the main, lobar, or segmental pulmonary arteries. 2. Cardiomegaly. 3. There is elevation of the left hemidiaphragm with airspace opacities at the left lung base. This l ikely represents atelectasis. Correlate clinically for evidence of superimposed infectious/inflammato ry pneumonitis. 4. There are trace pleural effusions, left larger than right. 5. Additional findings as above. Electronically signed by: Mike Forde M.D. 05/17/2019 9:33 PM
[2019-05-17 22:11] LABS: Appearance Urine Clear (Clear); Bilirubin Urine Negative (Negative); Blood Urine Negative (Negative); Color Urine Yellow; Glucose Urine UA Negative (Negative); Ketones Urine Negative (Negative); Leukocyte Esterase Urine Negative (Negative); Nitrite Urine Negative (Negative); Protein Urine Negative (Negative); Specific Gravity Urine > 1.045 (1.000-1.030); Urobilinogen Urine Negative (Negative); pH Urine 6.5 (4.5-7.5)
[2019-05-17] MEDS ORDERED: DOXYCYCLINE HYCLATE 100 MG CAP PO STA (22:27)
--- NOTE | 2019-05-17 22:43 | Ultrasound Report ---
ULTRASOUND BILATERAL LOWER EXTREMITY VENOUS CLINICAL HISTORY: Lower extremity edema. COMPARISON STUDY: No priors. TECHNIQUE: Real-time, grayscale, and color Doppler sonography of the deep veins of the right and left lower extremity was performed from the inguinal crease to the calf. Compression and augmentation wer e utilized. FINDINGS: There is no sonographic evidence of deep venous thrombosis identified in the right or left lower extremity. The common femoral, superficial femoral, and popliteal veins are patent and normally compressible bilaterally. The greater saphenous vein and the profunda femoris vein at the junction w ith the common femoral vein are clear in both legs. The visualized calf veins are patent bilaterally. IMPRESSION: There is no sonographic evidence of deep venous thrombosis identified in the right or lef t lower extremity. Electronically signed by: Mike Forde M.D. 05/17/2019 10:42 PM
--- NOTE | 2019-05-17 22:45 | Emergency Department Note ---
Entered by Mike Oliveros acting as a scribe for History of Present Illness General Chief complaint: Respiratory Problems Stated complaint: numb rt arm, no feeling in rt arm, WHEEZING, TIRED Source: patient and family History of Present Illness Provider complaint: SOB Onset (ago): week(s) 2 Location: chest Quality: + other (worsening) Associated symptoms: + denies other symptoms (nausea), + cough (nonproductive), + shortness of breath and + other (swelling in legs); no chest pain and no loss of appetite The patient is a 84 year old male with a hx of triple bypass who presents to the Emergency Room with complaints of difficulty breathing that began approximately 2 weeks ago. The patient's son, at bedside, states that the patient 3 weeks ago had bronchitis and was given a z pack and recovered. Starting 2 weeks ago, the son of the patient adds that the patient started getting numbness in his right fingers. The patient complains of welling in legs that began 2 weeks ago as well in addition to occasional headaches. The patient also complains of a nonproductive cough. The patient denies problems eating, chest pain, and nausea. The patient also denies a history of asthma/COPD. Home Medications Home Medications Medication Instructions Recorded Confirmed Type amlodipine 5 mg PO QAM 04/09/19 05/17/19 History aspirin 81 mg PO QAM 04/09/19 05/17/19 History atenolol 50 mg PO QAM 04/09/19 05/17/19 History atorvastatin 20 mg PO QPM 04/09/19 05/17/19 History meloxicam 7.5 mg PO QAM 05/17/19 05/17/19 History Allergies Allergy/AdvReac Type Severity Reaction Status Date / Time No Known Allergies Allergy . Verified 05/17/19 22:39 Past Med/Surg History Medical History Hematuria, gross (Acute 09/23/14) Hypertension (Chronic) Right wrist sprain (Acute) Strain of tendon of right rotator cuff (Acute) Confusion (Inactive) Expiratory wheezing (Inactive) Surgical History S/P triple vessel bypass Family History Other Bronchitis Social History Preferred Language: Citizen Of [place] Communication Ability: Effective Visual Impairment: No Limitations Hearing Ability: Normal Feels Safe at Home: Yes Smoking Status: Never smoker Review of Systems See HPI for pertinent positives & negatives. and A total of 10 systems reviewed and were otherwise negative Physical Exam Vital Signs Vital Signs - 24 hr 05/17/19 19:37 05/17/19 19:45 05/17/19 20:00 Temperature 38 C H Temperature Source Oral Sepsis Recent Fever Within 48 Hours No Sepsis Action Taken by Nursing No Action Required Pulse Rate 87 Pulse Rate [Right Finger] 86 75 Pulse Rate from SpO2 Sensor Respiratory Rate 32 H Respiratory Effort / Characteristics Non-Labored Spontaneous Respiratory Depth Normal Respiratory Pattern Blood Pressure 208/131 H Blood Pressure [Left Arm] 208/131 H 159/93 H Blood Pressure Mean 156 Blood Pressure Mean [Left Arm] 156 115 Pulse Oximetry 94 93 95 Oxygen Delivery Method Room Air Room Air Room Air 05/17/19 20:15 05/17/19 20:21 05/17/19 20:30 Temperature Temperature Source Sepsis Recent Fever Within 48 Hours Sepsis Action Taken by Nursing Pulse Rate Pulse Rate [Right Finger] 74 73 Pulse Rate from SpO2 Sensor Respiratory Rate 20 28 H Respiratory Effort / Characteristics Spontaneous SOB on Exertion Respiratory Depth Respiratory Pattern Blood Pressure Blood Pressure [Left Arm] 143/76 H Blood Pressure Mean Blood Pressure Mean [Left Arm] 98 Pulse Oximetry 95 94 98 Oxygen Delivery Method Room Air Room Air Room Air 05/17/19 21:11 05/17/19 21:38 05/17/19 22:20 Temperature Temperature Source Sepsis Recent Fever Within 48 Hours Sepsis Action Taken by Nursing Pulse Rate 81 76 Pulse Rate [Right Finger] 81 Pulse Rate from SpO2 Sensor 81 Respiratory Rate 24 27 H 27 H Respiratory Effort / Characteristics Non-Labored Spontaneous Respiratory Depth Normal Respiratory Pattern Regular Blood Pressure 164/73 H Blood Pressure [Left Arm] 171/78 H Blood Pressure Mean 103 Blood Pressure Mean [Left Arm] 109 Pulse Oximetry 92 93 Oxygen Delivery Method Room Air Room Air 05/17/19 22:30 05/17/19 23:00 Temperature Temperature Source Sepsis Recent Fever Within 48 Hours Sepsis Action Taken by Nursing Pulse Rate 75 65 Pulse Rate [Right Finger] Pulse Rate from SpO2 Sensor 75 65 Respiratory Rate 30 H 29 H Respiratory Effort / Characteristics Respiratory Depth Respiratory Pattern Blood Pressure 159/75 H 156/76 H Blood Pressure [Left Arm] Blood Pressure Mean 103 102 Blood Pressure Mean [Left Arm] Pulse Oximetry 94 94 Oxygen Delivery Method Room Air Room Air GENERAL: Awake, alert, fatigued-appearing, in no distress HENT: Normocephalic, atraumatic. EYES: Normal conjunctiva. Sclera non-icteric. NECK: Supple. No nuchal rigidity. No midline tenderness. RESPIRATORY: Clear to auscultation. No wheezes. Increased work of breathing. CARDIAC: Normal rate. Normal rhythm. Extremities warm and well perfused. GI: Soft, non-distended. No tenderness to palpation. No rebound or guarding. No masses. RECTAL: Deferred. MUSCULOSKELETAL: Atraumatic. Chest examination reveals no tenderness. There is no CVA tenderness to palpation. UPPER EXTREMITIES: subjective numbness right left, index and middle fingers, gross sensation intact. LOWER EXTREMITIES: Calves are equal size bilaterally and non-tender. 2 + left lower extremity swelling, 1 + right lower extreme swelling. R hip pain on ROM only. NEURO: Normal sensorium. No sensory or motor deficits noted. No facial droop. no slurred speech. SKIN: Warm and dry. No jaundice noted. Course 194: The patient was evaluated in room A10. A complete history and physical exam was performed. 2226: [facility] the [facility]: Dr. Fuentes-Orthopedics was made aware of patient's hip injury. Administered Medications Ioversol (Optiray 320 125ml) 82 ml IV ONCE PRN PRN Reason: Interaction Checking Stop: 05/21/19 21:06 Last Admin: 05/17/19 21:07 Dose: 82 ml Documented by: [id number] Discontinued Medications Albuterol (Duoneb) 3 ml NEB NOW STA Stop: 05/17/19 19:58 Last Admin: 05/17/19 20:21 Dose: 3 ml Documented by: [id number] Doxycycline Hyclate (Vibramycin) 100 mg PO NOW STA Stop: 05/17/19 22:28 Last Admin: 05/17/19 22:47 Dose: 100 mg Documented by: [id number] Medical Decision Making Differential Diagnosis Differential diagnosis: Etiologies such as infections, reactive airway disease, pneumonia, pneumothorax, COPD, CHF, cardiac ischemia, pulmonary embolism, musculoskeletal, gastrointe stinal, metabolic, infection, hypo/hyperglycemia, electrolyte abnormalities, cardiac sources, intracerebral event, toxicologic, neurologic, as well as others were entertained. Medical Records Attestation: I reviewed the patient's medical records. Home Medications Current Medication List: was personally reviewed by me Laboratory Data Attestation: I reviewed the patient's lab results. Result diagrams: 05/17/19 19:56 05/17/19 19:56 Lab Results 05/17/19 05/17/19 05/17/19 Range/Units 19:56 19:56 19:56 WBC 7.85 (4.8-10.8) K/uL RBC 4.25 L (4.7-6.1) M/uL Hgb 13.3 L (14.0-18.0) g/dL Hct 40.0 L (42-52) % MCV 94.1 (80-100) fL MCH 31.3 (25-34) pg MCHC 33.3 (32-36) g/dL RDW Std Deviation 48.6 H (36.4-46.3) fL RDW Coeff of Flor 14.1 (11.5-14.5) % Plt Count 183 (130-400) K/uL MPV 9.3 (7.4-10.4) fL Immature Gran % (Auto) 0.3 % Neut % (Auto) 75.5 % Lymph % (Auto) 12.5 % [place] % (Auto) 11.3 % Eos % (Auto) 0.1 % Baso % (Auto) 0.3 % Immature Gran # (Auto) 0.02 (0.00-0.02) K/uL Neut # (Auto) 5.93 (1.4-6.5) K/uL Lymph # (Auto) 0.98 L (1.2-3.4) K/uL [place] # (Auto) 0.89 H (0.11-0.59) K/uL Eos # (Auto) 0.01 (0-0.5) K/uL Baso # (Auto) 0.02 (0-0.2) K/uL PT 10.9 (9.0-12.0) Seconds INR 1.1 (0.9-1.1) APTT 25.1 (21.0-31.0) Seconds PTT Ratio 0.9 D-Dimer (0-500) ug/L FEU Sodium 136 (136-145) mmol/L Potassium 4.3 (3.5-5.1) mmol/L Chloride 102 (98-107) mmol/L Carbon Dioxide 27 (21-32) mmol/L Anion Gap 8.0 (3-11) BUN 26 H (7-18) mg/dl Creatinine 1.10 (0.6-1.4) mg/dl Est Cr Clr Drug Dosing 47.2 ml/min Est GFR ( Amer) 70.6 Est GFR (Non-Af Amer) 60.9 BUN/Creatinine Ratio 24.0 H (10-20) Glucose 148 H (70-99) mg/dl Lactate (0.4-2.0) mmol/L Calcium 8.9 (8.5-10.1) mg/dl Magnesium 2.5 H (1.8-2.4) mg/dl Total Bilirubin 0.4 (0.2-1) mg/dl AST 27 (15-37) U/L ALT 43 (12-78) U/L Alkaline Phosphatase 80 (45-117) U/L Troponin I < 0.015 (0-0.045) ng/ml NT-Pro-B Natriuret Pep 1351 (0-1800) pg/ml Total Protein 7.5 (6.4-8.2) gm/dl Albumin 3.8 (3.4-5.0) gm/dl Globulin 3.7 (2.5-4.0) gm/dl Albumin/Globulin Ratio 1.0 (0.9-2) TSH 2.630 (0.300-4.500) uIu/ml Urine Color Urine Appearance (Clear) Urine pH (4.5-7.5) Ur Specific [place] (1.000-1.030) Urine Protein (Negative) Urine Glucose (UA) (Negative) Urine Ketones (Negative) Urine Blood (Negative) Urine Nitrite (Negative) Urine Bilirubin (Negative) Urine Urobilinogen (Negative) Ur Leukocyte Esterase (Negative) 05/17/19 05/17/19 05/17/19 Range/Units 19:56 19:56 21:37 WBC (4.8-10.8) K/uL RBC (4.7-6.1) M/uL Hgb (14.0-18.0) g/dL Hct (42-52) % MCV (80-100) fL MCH (25-34) pg MCHC (32-36) g/dL RDW Std Deviation (36.4-46.3) fL RDW Coeff of Flor (11.5-14.5) % Plt Count (130-400) K/uL MPV (7.4-10.4) fL Immature Gran % (Auto) % Neut % (Auto) % Lymph % (Auto) % [place] % (Auto) % Eos % (Auto) % Baso % (Auto) % Immature Gran # (Auto) (0.00-0.02) K/uL Neut # (Auto) (1.4-6.5) K/uL Lymph # (Auto) (1.2-3.4) K/uL [place] # (Auto) (0.11-0.59) K/uL Eos # (Auto) (0-0.5) K/uL Baso # (Auto) (0-0.2) K/uL PT (9.0-12.0) Seconds INR (0.9-1.1) APTT (21.0-31.0) Seconds PTT Ratio D-Dimer 3700 H* (0-500) ug/L FEU Sodium (136-145) mmol/L Potassium (3.5-5.1) mmol/L Chloride (98-107) mmol/L Carbon Dioxide (21-32) mmol/L Anion Gap (3-11) BUN (7-18) mg/dl Creatinine (0.6-1.4) mg/dl Est Cr Clr Drug Dosing ml/min Est GFR ( Amer) Est GFR (Non-Af Amer) BUN/Creatinine Ratio (10-20) Glucose (70-99) mg/dl Lactate 1.9 (0.4-2.0) mmol/L Calcium (8.5-10.1) mg/dl Magnesium (1.8-2.4) mg/dl Total Bilirubin (0.2-1) mg/dl AST (15-37) U/L ALT (12-78) U/L Alkaline Phosphatase (45-117) U/L Troponin I (0-0.045) ng/ml NT-Pro-B Natriuret Pep (0-1800) pg/ml Total Protein (6.4-8.2) gm/dl Albumin (3.4-5.0) gm/dl Globulin (2.5-4.0) gm/dl Albumin/Globulin Ratio (0.9-2) TSH (0.300-4.500) uIu/ml Urine Color Yellow Urine Appearance Clear (Clear) Urine pH 6.5 (4.5-7.5) Ur Specific [place] > 1.045 H (1.000-1.030) Urine Protein Negative (Negative) Urine Glucose (UA) Negative (Negative) Urine Ketones Negative (Negative) Urine Blood Negative (Negative) Urine Nitrite Negative (Negative) Urine Bilirubin Negative (Negative) Urine Urobilinogen Negative (Negative) Ur Leukocyte Esterase Negative (Negative) Imaging Data Radiologist's Impression: Radiology results as stated below per my review and the radiologist's interpretation: SINGLE VIEW PELVIS; 2 VIEWS RIGHT HIP CLINICAL HISTORY: Fall. FINDINGS: An AP portable view of the pelvis with AP and frog-leg views of the right hip are compared to study dated 01/10/2013. The skeletal structures are os teopenic. There is no radiographic evidence of fracture involving the left hip or the bony pelvis. Suspect a nondistracted fracture through the greater trochanter of the right femur. This is only seen on the frog-leg view. A bipolar right hip arthroplasty is in near anatomic alignment. No periprosthetic lucency is seen. Mild to moderate degenerative change and joint space narrowing is seen in the left hip. The sacroiliac joints are preserved. The overlying soft tissues are normal in appearance. There is atherosclerotic calcification of the femoral arteries. There is no evidence of bowel obstruction. IMPRESSION: 1. Suspect a nondistracted fracture through the greater trochanter of the right femur. Correlate for point tenderness. 2. No fracture seen involving the left hip or the bony pelvis. Electronically signed by: Mike Forde M.D. 05/17/2019 8:24 PM SINGLE VIEW CHEST CLINICAL HISTORY: Fall. Dyspnea. Dizziness. FINDINGS: An AP, portable, upright chest radiograph is compared to study dated 04/14/2019. The examination is degraded by portable technique and patient rotation. The patient is status post midline sternotomy. The heart is enlarged and there is atherosclerotic calcification of the thoracic aorta. The pulmonary vasculature is noncongested. Chronic interstitial thickening and elevation of the left hemidiaphragm are similar to previous. There is bibasilar atelectasis. No airspace consolidation or large pleural effusion is identified. No pneumothorax is seen. The skeletal structures are osteopenic. The bony thorax is grossly intact. IMPRESSION: Cardiomegaly with no acute cardiopulmonary abnormality. Electronically signed by: Mike Forde M.D. 05/17/2019 8:[address] SCAN OF THE BRAIN WITHOUT IV CONTRAST CLINICAL HISTORY: Generalized weakness. COMPARISON STUDY: CT of the brain dated 04/09/2019. TECHNIQUE: Unenhanced axial CT scan of the brain is performed from the vertex to the skull base. A dose lowering technique was utilized adhering to the principles of ALARA. CT DOSE: 614.27 mGy.cm FINDINGS: Brain parenchyma: There are age-related involutional changes noting mild to moderate subcortical and periventricular microangiopathic change. There is no h emorrhage, mass effect, or evidence of acute territorial ischemia by CT criteria. Dunaway-white matter differentiation is preserved. No extra-axial fluid collection is seen. Ventricles, sulci, cisterns: Prominent secondary to involutional change. Intracranial vasculature: There is atherosclerotic calcification of the cavernous carotid and vertebral arteries. Calvarium: Skeletal structures are osteopenic. The calvarium appears intact. Sinuses and mastoids: There is a 13 mm retention cyst in the left maxillary antrum. Mild mucosal thickening is noted in the ethmoid sinuses. The remaining Visualized paranasal sinuses are clear. The mastoid air cells are well pneumatized. Orbits: The bony orbits are grossly intact. There are bilateral ocular lens implants. IMPRESSION: There is no hemorrhage, mass effect, or evidence of acute territorial ischemia by CT criteria. Electronically signed by: Mike Forde M.D. 05/17/2019 9:[address] SCAN OF THE RIGHT HIP WITHOUT IV CONTRAST CLINICAL HISTORY: Fall with right hip pain. COMPARISON STUDY: Radiographs of the right hip dated 05/17/2019. TECHNIQUE: CT scan of the right hip is performed from the bony pelvis to the proximal femoral shaft. Images are reviewed in the axial, sagittal, and coronal planes. IV contrast was not administered for this examination. 3-D reformats are created and assessed. A dose lowering technique was utilized adhering to the principles of ALARA. The examination is degraded by metallic streak artifact from a right hip arthroplasty. CT DOSE: 398.69 mGy.cm FINDINGS: The skeletal structures are osteopenic. A bipolar right hip arthroplasty is in place. There is a minimally distracted fracture through the greater trochanter of the right femur which extends to the arthroplasty as well as the both the anterior and lateral cortex. There is a small anteriorly distra cted fragment. The visualized femoral shaft is intact, as is the visualized right hemipelvis. There is only mild overlying soft tissue edema. The regional musculature is normal in appearance, with no intramuscular hematoma identified. Atherosclerotic calcification is noted in the right femoral artery. There is no right pelvic sidewall or right inguinal adenopathy. Fecal retention is noted in the rectosigmoid colon. IMPRESSION: 1. There is a minimally distracted fracture through the greater trochanter of the right femur as above. This extends to the arthroplasty. 2. No additional fracture is seen. Electronically signed by: Mike Forde M.D. 05/17/2019 9:[address] ANGIOGRAM OF THE CHEST CLINICAL HISTORY: Elevated d-dimer. COMPARISON STUDY: Chest x-ray dated 05/17/2019. TECHNIQUE: Following the IV administration of 82 cc of Optiray 320, CT angiogram of the chest was performed from the upper abdomen to the thoracic inlet utilizing the pulmonary embolus protocol. Images are reviewed in the axial, sagittal, and coronal planes. 3-D MIPS images are created and assessed. IV contrast was administered without complication. A dose lowering technique was utilized adhering to the principles of ALARA. The examination is modestly degraded by motion artifact. CT DOSE: 278.17 mGy.cm FINDINGS: Thyroid: Imaged portions of the thyroid gland are normal in size and heterogeneous in attenuation. Thoracic aorta: There is mild atherosclerotic calcification of the thoracic aorta, which is normal in caliber and demonstrates standard 3-vessel arch anatomy. No dissection is seen. Pulmonary vasculature: The pulmonary trunk is normal in caliber. There are no filling defects identified in main, lobar, or segmental pulmonary branches to suggest pulmonary embolus. Evaluation of the peripheral branches in the right lower lobe is degraded by motion artifact. Heart: The patient is status post midline sternotomy. The heart is enlarged and without pericardial effusion. The coronary arteries are densely calcified. Lungs and pleural spaces: There is elevation of left hemidiaphragm with dependent airspace opacities at the left lung base. There are trace pleural effusions, left larger than right. The trachea and central airways are clear. Mediastinum: There are mildly enlarged mediastinal lymph nodes, several of which contain coarse calcifications. A subcarinal node measures 12 mm in short axis. Precarinal nodes measure up to 10 mm in short axis. Hina: Clear. Axillae: There is no axillary lymphadenopathy. Upper abdomen: Partially visualized upper abdominal viscera is grossly unremarkable. Skeletal structures: The skeletal structures are osteopenic. Degenerative change and hyperkyphosis are noted in the thoracic spine. There are mild and age indeterminant superior endplate compression deformities of T3, T4, and T5. No lytic or blastic bony lesions are seen. IMPRESSION: 1. There is no evidence of pulmonary embolus in the main, lobar, or segmental pulmonary arteries. 2. Cardiomegaly. 3. There is elevation of the left hemidiaphragm with airspace opacities at the left lung base. This likely represents atelectasis. Correlate clinically for evidence of superimposed infectious/inflammatory pneumonitis. 4. There are trace pleural effusions, left larger than right. 5. Additional findings as above. Electronically signed by: Mike Forde M.D. 05/17/2019 9:33 PM ECG Data Attestation: I personally reviewed and interpreted this ECG as follows: Indication: SOB/dyspnea Rate (beats per minute): 81 Rhythm: normal sinus Findings: + other (inferior T wave changes), + 1st degree AV block and + PVC; no ST elevation Comparison ECG Date: from (04/14/19) Change: the following changes noted (inferior T wave changes are new ) MDM Narrative Patient is a 84-year-old gentleman with a history of hypertension and cardiac disease presenting today with several complaints. Worsening weight is over several days with worsening respiratory status. Numbness of the right free fingers and over the last week some increased swelling of the lower extremities left little bit greater than right. Has been having some difficulties with knees and hip pain. Did become lightheaded and fall just outside the emergency department. Did not strike his head. Denies any chest pain or current headache but headache has been there here and there. Denies any abdominal discomfort. Some increased work of breathing and febrile to 38 C. Some pain of the right hip. X-ray questionable right hip fracture and CT scan obtained here. Imaging of the head was completed. Chest x-ray without significant findings. Ultrasound lower extremity were completed. Basic laboratory studies show no significant leukocytosis or anemia. No evidence of significant kidney dysfunction or lactate elevation. No evidence of acute hepatitis or pancreatitis. EKG showed some new T wave inversions and troponin was completed showing no elevation. CT of the chest was completed given a positive dimer to exclude PE. Doubt this dissection. CT the head was unremarkable. CT of the hip shows an arthroplasty with fracture to the greater trochanter around the arthroplasty. CT of the chest without acute PE. There is some inflammation of left lower lobe concerning for some pneumonitis. With this will place on some doxycycline given the questionable fever and has increased work of breathing but again do not see clear evidence of a focal consolidative pneumonia at this point. Advised orthopedics of the injury around the arthroplasty. Ultrasound lower extremities show no acute evidence of DVT. Unsure if this is just some dependent edema. Does not appear to be in acute heart failure. Will defer further treatment to the hospitalist. Dr. Fuentes is made aware that the hospitalist contacted for admission. Patient declined pain medication at this time. Impression & Plan Syncope, Fracture of prosthetic hip, Pneumonitis, Weakness Discharge Plan Visit Data Chief Complaint: Respiratory Problems Stated Complaint: numb rt arm, no feeling in rt arm, WHEEZING, TIRED ED Provider: Leonardo Gracia Discharge Problem: Syncope, Fracture of prosthetic hip, Pneumonitis, Weakness Discharge Instructions Interventions: ED Discharge Assessment Last Done: 05/17/19 23:46 Discharge Problem: Syncope Qualifiers: Syncope type: unspecified Qualified Code(s): R55 - Syncope and collapse Fracture of prosthetic hip Qualifiers: Encounter type: initial encounter Qualified Code(s): T84.019A - Broken internal joint prosthesis, unspecified site, initial encounter The sakinaibe's documentation has been prepared under my direction and personally reviewed by me in its entirety. I confirm that the note above accurately reflects all work, treatment, procedures, and medical decision making performed by me.
[2019-05-18] MEDS ORDERED: ONDANSETRON INJ 2 MG/ML 2 ML VIAL IV PRN (01:07)
[2019-05-18] MEDS ORDERED: ALBUT/IPRATROP 3MG/0.5MG NEB 3 ML VIAL NEB PRN (01:07)
[2019-05-18] MEDS ORDERED: NITROGLYCERIN SL 0.4 MG/TAB TAB SL PRN (01:07)
[2019-05-18] MEDS ORDERED: MoRPHine SULFATE 2 MG/ML CARP IV PRN (01:07)
[2019-05-18] MEDS: SODIUM CHLORIDE 0.9% 1000ML 1,000 ML IV SCH ×2 (02:23→18:04)
[2019-05-18] MEDS: cefTRIAXone SODIUM 1,000 MG in DEXTROSE 5% 50 ML IV SCH (02:23)
[2019-05-18 06:41] LABS: Basophils # (auto) 0.02 K/uL (0-0.2); Basophils % (auto) 0.3 %; Hematocrit (blood only) 33.7 % (42-52); Hemoglobin 11.4 g/dL (14.0-18.0); Immature Granulocytes # (auto) 0.02 K/uL (0.00-0.02); Immature Granulocytes % (auto) 0.3 %; Lymphocytes # (auto) 0.72 K/uL (1.2-3.4); Lymphocytes % (auto) 11.3 %; Mean Corpuscular Hgb Conc 33.8 g/dL (32-36); Mean Corpuscular Volume 92.8 fL (80-100); Mean Platelet Volume 8.8 fL (7.4-10.4); Monocytes # (auto) 0.77 K/uL (0.11-0.59); Monocytes % (auto) 12.1 %; Neutrophils # (auto) 4.83 K/uL (1.4-6.5); Platelet Count 147 K/uL (130-400); RDW Coefficient of Variation 14.1 % (11.5-14.5); RDW Standard Deviation 47.7 fL (36.4-46.3); Red Blood Count 3.63 M/uL (4.7-6.1); White Blood Count 6.36 K/uL (4.8-10.8)
[2019-05-18 07:05] LABS: BUN Creatinine Ratio 24.5 (10-20); Calcium 8.1 mg/dl (8.5-10.1); Creatinine Clr Calc Pharmacy 68.8 ml/min; Est GFR (African American) 93.9; Magnesium 2.4 mg/dl (1.8-2.4); Potassium 3.9 mmol/L (3.5-5.1)
[2019-05-18] MEDS: ATENOLOL 50 MG TABLET PO SCH (07:50)
[2019-05-18] MEDS: DOXYCYCLINE HYCLATE 100 MG in DEXTROSE 5% 100 ML IV SCH ×2 (07:51→20:46)
[2019-05-18] MEDS ORDERED: AMLODIPINE BESYLATE 5 MG TAB PO SCH (09:00)
--- NOTE | 2019-05-18 09:10 | History and Physical Report ---
DATE OF ADMISSION: 05/17/2019 CHIEF COMPLAINT: Shortness of breath and fall. HISTORY OF PRESENT ILLNESS: This 84-year-old male with past medical history significant for CAD, status post CABG, hypertension, hyperlipidemia, urge incontinence who lives with his son, walks without any help, was having shortness of breath since about a week, was recently treated for bronchitis with Z-NIA. Denies any fevers or chills. He is having frequent urination since last 2-3 weeks, was trying to get appointment with urology. He also having lower extremity edema last 3 weeks. Because of shortness of breath came to the ER. At ER entrance he felt dizzy, lightheaded and fell down and brought into the hospital where he was found to have right femur greater trochanter fracture. Denies any pain, currently resting comfortably and hemodynamically stable. Denies any chest pain. Denies any cough, no headache, no blurred vision, no earache, has some runny nose, no sore throat, no difficulty swallowing. Appetite is okay. No abdominal pain. Normal bowel and bladder. No blood in the stools, no black stools. No rash. No difficulty swallowing. ALLERGIES: No known drug allergies. PAST MEDICAL HISTORY: As mentioned above. PAST SURGICAL HISTORY: CABG, cystoscopy, retropubic radical prostatectomy, tonsillectomy, adenoidectomy, revision of right total hip joint surgery in 2012. MEDICATIONS: The patient is on atenolol 50 mg p.o. daily, amlodipine 5 mg p.o. daily, Lipitor 20 mg p.o. daily, aspirin 81 mg p.o. daily. FAMILY HISTORY: Significant for mother has arthritis. Father had lung disorder,litigation examiner and heart disorder, at age of 52. Brother had brain tumor. Sister has heart disorder. SOCIAL HISTORY: , currently lives with his son. Former smoker, quit in 1966. Smoked 2 packs a day for 20 years. Alcohol once or twice a month. No drug use. REVIEW OF SYMPTOMS: As per HPI. Rest of review of systems negative. PHYSICAL EXAMINATION: GENERAL: The patient is of moderate build, not in acute distress. VITAL SIGNS: Temperature 38, pulse 65, respiratory rate 29, blood pressure 156/76, oxygen 92% on room air. HEENT: No pallor, no icterus. Pupils equal, round, reactive to light. NECK: No JVD, no neck masses, no carotid bruit. CARDIOVASCULAR: S1, S2 heard, regular rate and rhythm, no murmur, no gallop. RESPIRATORY SYSTEM: Normal AP diameter. No rales. No wheezing, no crackles. ABDOMEN: Soft, bowel sounds present. Nontender. No distention. CENTRAL NERVOUS SYSTEM: Cranial nerves II-XII grossly intact, nonfocal. EXTREMITIES: Bilateral lower extremity +1 edema present. Right lower extremity is somewhat shortened and externally rotated. LABORATORY DATA: WBC 7.8, hemoglobin 13.3, hematocrit 40, platelets 183. PT 10.9, INR 1.1, APTT 25.1. D-dimer 3700. Sodium 136, potassium 4.3, chloride 102, bicarbonate 27, BUN 26, creatinine 1.1, serum glucose 148. Lactate 1.9. Calcium 8.9, magnesium 2.5. Total bilirubin 0.4, AST 27, ALT 43, alkaline phosphatase 80, troponin I less than 0.015. BNP 1351. TSH 2.6. Urinalysis negative. CTA of the chest, no evidence of pulmonary embolus in the main lobar or subsegmental pulmonary arteries. Cardiomegaly, questionable left lung base infection/ pneumonitis versus atelectasis, trace pleural effusions, left larger than right. CT of the hip, minimally displaced fracture to the greater trochanter of the right femur. This extends to the arthroplasty. Venous Doppler, no DVT. Hip pelvis x-ray, nondistracted fracture of the greater trochanter of the right femur. CT of the head, no acute findings. Chest x-ray: Cardiomegaly with no acute cardiopulmonary abnormality. EKG: Normal sinus rhythm, rate of 81. No acute ST changes seen. ASSESSMENT AND PLAN: This 84-year-old male presents with shortness of breath. Has a presyncopal episode outside the ER. 1. Shortness of breath. CTA of the chest is negative for PE, but a possible left lower lobe pneumonia. We will empirically place on IV Doxycycline and IV Rocephin. Follow the blood cultures. Had temp spike in the ER, but no leukocytosis. Pilar p.r.n., close monitor. 2. Presyncope, possibly from the above but we will follow serial cardiac enzymes and echocardiogram.Monitor in tele.To check orthostatics. 3. Lower extremity edema going for last 3 weeks. No DVT on Doppler. We will follow echocardiogram, possible dependent edema. 4. Right femur fracture extending to the arthroplasty Er notified Ortho, will keep him n.p.o. for now. Gentle fluids. The patient does not have any pain . IV morphine p.r.n. Await ortho input. If any surgery planned should be ok to proceed with surgery if echo is unremarkable and infection under control 5. History of coronary artery disease, status post coronary artery bypass grafting. Continue statin, beta rain, hold the aspirin for any possible procedures and restart as soon as possible.. 6. History of hypertension. Continue amlodipine and atenolol. Question of being on lisinopril. Will monitor the blood pressure. 7. History of Transurethral vaporization of prostrate in 2013, for BPH and voiding problems. Having frequent urination lately. trying to get appointment with urology. We will monitor in the hospital for any urinary retention. 8. Deep venous thrombosis prophylaxis. Sequential compression devices for now. 9. Disposition: Admit to med/surg tele. Level 1 full code. PT and OT prior to discharge. Social Service to help with discharge planning. MTDD
--- NOTE | 2019-05-18 11:43 | Consultation Report ---
DATE OF CONSULTATION: 05/18/2019 ORTHOPEDIC CONSULTATION CHIEF COMPLAINT: Right hip pain. HISTORY OF PRESENT ILLNESS: An 84-year-old gentleman who is well known to me from previous right hip replacement that I did back on 01/10/2013. He has done pretty well from this, but had some intermittent bursal type symptoms on the lateral side of his hip since then, which responded to injections. He apparently had a syncopal episode yesterday and fell and injured his hip. He was on his way to the Emergency Room for other issues. He had x-rays and CT scan, which revealed a nondisplaced greater trochanter for a fracture around his total hip replacement. The patient denies any particular pain right now. He is lying in bed and comfortable. He does say that he has had some intermittent pains on the lateral side of his hip. No other complaints. He is admitted for possible Pneumonia and shortness of breath. PAST MEDICAL HISTORY: Significant for: 1. Coronary artery disease. 2. Hypertension. 3. Elevated cholesterol. 4. Incontinence. Remainder of the past medical history is per the admission H and P. OBJECTIVE: VITAL SIGNS: Temperature is 37.0. Vital signs stable. PHYSICAL EXAMINATION: GENERAL: Reveals a pleasant elderly male. He is lying in bed and looks comfortable. He is awake, alert and oriented. EXTREMITIES: Examination of the right hip reveals no visible abnormality. He describes pain right over the lateral side of his hip. There is no significant bruising. He can do a straight leg raise. He does not have any pain when he does that. When he brings his leg out to sides, he has some pain. No pain with passive hip motion. X-RAYS: X-ray of the right hip and pelvis as well as a CT scan were reviewed. It shows a nondisplaced right greater trochanter fracture. There are no signs of extension down into the shaft. His hip is located. No signs of other problems. ASSESSMENT: An 84-year-old gentleman 6 years out from a right total hip replacement, status post a fall with a nondisplaced greater trochanter fracture. PLAN: We talked about treatment. This is something that does not need surgery. He can weight bear as tolerated. We will do no active hip abduction for 6 weeks. No other real intervention is warranted. He will obviously need medical management for the syncopal episode and any associated medical issues with this. Recommend to continue DVT prophylaxis including thigh-high TEDs and SCDs, anticoagulation as per the medicine service. He can begin therapy. He can weight bear as tolerated. No active hip abduction. Any orthopedic questions can be directed to me at [phone]. MTDD
[2019-05-18] MEDS: ACETAMINOPHEN 325 MG TAB PO PRN (18:04)
[2019-05-18] MEDS: ATORVASTATIN 20 MG TAB PO SCH (20:39)
[2019-05-19] MEDS: cefTRIAXone SODIUM 1,000 MG in DEXTROSE 5% 50 ML IV SCH (02:30)
[2019-05-19] MEDS ORDERED: LORazepam 0.25 MG/0.5 ML VIAL IV ONE (03:30)
[2019-05-19] MEDS ORDERED: METOPROLOL TARTRATE 1 MG/ML VIAL IV STA ×2 (04:06→05:04)
[2019-05-19] MEDS ORDERED: Heparin IV Low Dose *NO* Bolus IV SCH (04:30)
[2019-05-19 04:49] LABS: Hematocrit (blood only) 34.9 % (42-52); Hemoglobin 11.7 g/dL (14.0-18.0); Mean Corpuscular Hgb Conc 33.5 g/dL (32-36); Mean Corpuscular Volume 91.6 fL (80-100); Mean Platelet Volume 9.5 fL (7.4-10.4); Platelet Count 134 K/uL (130-400); RDW Coefficient of Variation 13.8 % (11.5-14.5); RDW Standard Deviation 46.7 fL (36.4-46.3); Red Blood Count 3.81 M/uL (4.7-6.1); White Blood Count 7.82 K/uL (4.8-10.8)
[2019-05-19 05:00] LABS: INR 1.1 (0.9-1.1); Prothrombin Time 11.5 Seconds (9.0-12.0)
[2019-05-19] MEDS ORDERED: METOPROLOL TARTRATE 1 MG/ML VIAL IV PRN (05:00)
[2019-05-19] MEDS ORDERED: Heparin IV Standard *NO* Bolus IV SCH (05:00)
[2019-05-19 05:07] LABS: Albumin Level 3.1 gm/dl (3.4-5.0); BUN Creatinine Ratio 18.9 (10-20); Creatinine Clr Calc Pharmacy 69.7 ml/min; Est GFR (African American) 94.4; Est GFR (Non-African American) 81.5; Potassium 3.4 mmol/L (3.5-5.1)
[2019-05-19 05:10] LABS: Albumin Globulin Ratio 0.9 (0.9-2); Bilirubin,Total 0.5 mg/dl (0.2-1); Globulin 3.4 gm/dl (2.5-4.0); Total Protein 6.5 gm/dl (6.4-8.2)
[2019-05-19] MEDS: Heparin Adult STANDARD Wt-Based Dextrose 5% 25,000 units/500 mL IV SCH ×2 (06:47→23:45)
--- NOTE | 2019-05-19 08:39 | Hospitalist Progress Note ---
Date of Service May 19, 2019 Assessment & Plan (1) Syncope: (2) Fracture of prosthetic hip: (3) Pneumonitis: (4) Weakness: (5) S/P triple vessel bypass: (6) Hypertension: (7) Atrial fibrillation with rapid ventricular response: Continue abx, No surgery needed, PT, Heparin gtt and Cards eval for AFIB. Moved to [facility] at 3 am Labs Checked ROS-No Headache, No Visual Changes, No Nausea, No Vomiting, No Fever, No Chills, No Neck Pain or Stiffness, No Chest Pain, No Palpitations, No SOB, No SUAZO, No Cough, No Sputum, No Wheezing, No Abdominal Pain, No Diarrhea, No Hematemesis, No Hemoptysis, No Unexpected Weight Loss, No Flank pain, No Melena, No Hematochezia, No Frequency, No Urgency, No Burning, No Hematuria, No Rashes, No Diaphoresis. Appetite is Normal Physical Exam Gen-AAO x 3, NAD, Afebrile Head-NCAT, EOMI, PERRLA, Anicteric Sclera, No Posterior Pharyngeal Erythema Neck-Supple, No JVD, No Thyromegaly, No Masses, No LAD, No Bruits Lungs-Clear to Auscultation Bilaterally, No Rales, No Rhonchi, No Wheezing, No Crepitus Chest-Irreg No S4, +S1, +S2, No S3, No Murmurs, No Rubs, No Gallops Abdomen-Soft, Bowel Sounds Present, Non Tender, Non Distended, No Hepatomegaly, No Splenomegaly, No Palpable Masses, No Rebound, No Rigidity, No Guarding Musculoskeletal-Full Range of Motion Bilaterally, No CVAT Extremities-No Cyanosis, No Clubbing, No Edema Nuero-Cranial Nerves II-XII grossly intact, Motor WNL, DTRs WNL, Strength WNL, Non Focal Psych-Normal Mood Results & Data Vital Signs (Past 12 Hours) Vital Signs Temp Pulse Pulse Resp BP BP Pulse Ox 05/19/19 08:03 37.8 C H 118 H 19 107/64 97 05/19/19 05:08 135 H 133/82 05/19/19 04:42 128 H 122/78 05/19/19 04:00 37.4 C 91 H 22 107/61 94 05/19/19 02:47 89 22 97 05/19/19 00:25 54 L 05/18/19 23:00 36.8 C 54 L 21 160/78 H 95 (1) Syncope Syncope type: unspecified Qualified Code(s): R55 - Syncope and collapse (2) Fracture of prosthetic hip Encounter type: initial encounter Qualified Code(s): T84.019A - Broken internal joint prosthesis, unspecified site, initial encounter; Z96.649 - Presence of unspecified artificial hip joint
[2019-05-19] MEDS: ATENOLOL 50 MG TABLET PO SCH (08:47)
--- NOTE | 2019-05-19 08:55 | Hospitalist Progress Note ---
Date of Service May 18, 2019 May 19, 2019 Assessment & Plan (1) Syncope: (2) Fracture of prosthetic hip: (3) Pneumonitis: (4) Weakness: (5) S/P triple vessel bypass: (6) Hypertension: (7) Atrial fibrillation with rapid ventricular response: Thought my partner saw him p [place] yesterday, I did see him, but note written 05/19, He was not in AFIB until 05/19 Continue abx, No surgery needed, PT Labs Checked ROS-No Headache, No Visual Changes, No Nausea, No Vomiting, No Fever, No Chills, No Neck Pain or Stiffness, No Chest Pain, No Palpitations, No SOB, No SUAZO, No Cough, No Sputum, No Wheezing, No Abdominal Pain, No Diarrhea, No Hematemesis, No Hemoptysis, No Unexpected Weight Loss, No Flank pain, No Melena, No Hematochezia, No Frequency, No Urgency, No Burning, No Hematuria, No Rashes, No Diaphoresis. Appetite is Normal Physical Exam Gen-AAO x 3, NAD, Afebrile Head-NCAT, EOMI, PERRLA, Anicteric Sclera, No Posterior Pharyngeal Erythema Neck-Supple, No JVD, No Thyromegaly, No Masses, No LAD, No Bruits Lungs-Clear to Auscultation Bilaterally, No Rales, No Rhonchi, No Wheezing, No Crepitus Chest-No S4, +S1, +S2, No S3, No Murmurs, No Rubs, No Gallops Abdomen-Soft, Bowel Sounds Present, Non Tender, Non Distended, No Hepatomegaly, No Splenomegaly, No Palpable Masses, No Rebound, No Rigidity, No Guarding Musculoskeletal-Full Range of Motion Bilaterally, No CVAT Extremities-No Cyanosis, No Clubbing, No Edema Nuero-Cranial Nerves II-XII grossly intact, Motor WNL, DTRs WNL, Strength WNL, Non Focal Psych-Normal Mood Results & Data Vital Signs (Past 12 Hours) Vital Signs Temp Pulse Pulse Resp BP BP Pulse Ox 05/19/19 08:03 37.8 C H 118 H 19 107/64 97 05/19/19 05:08 135 H 133/82 05/19/19 04:42 128 H 122/78 05/19/19 04:00 37.4 C 91 H 22 107/61 94 05/19/19 02:47 89 22 97 05/19/19 00:25 54 L 05/18/19 23:00 36.8 C 54 L 21 160/78 H 95 (1) Syncope Syncope type: unspecified Qualified Code(s): R55 - Syncope and collapse (2) Fracture of prosthetic hip Encounter type: initial encounter Qualified Code(s): T84.019A - Broken internal joint prosthesis, unspecified site, initial encounter; Z96.649 - Presence of unspecified artificial hip joint
--- NOTE | 2019-05-19 08:59 | Cardiology Consultation ---
Date of Consultation May 19, 2019 Assessment & Plan (1) Atrial fibrillation with rapid ventricular response: New onset atrial fibrillation with rapid ventricular response observed in the setting of pneumonia, right hip pain, beta-rain withdrawal, hypokalemia. First observed on May 18, 2019 at 02:04. Seemingly asymptomatic, thus far [id number] Score: 3 points Agree with a one-time dose of IV digoxin. Discontinue Atenolol Utilize Toprol-XL starting at 50 mg/day Utilize heparin for now. ? candidate for long-term anticoagulation. Supplement potassium orally (2) ASCVD (arteriosclerotic cardiovascular disease): Status post remote CABG No history of ND or CHF. Asymptomatic Continue beta-rain, ASA, and statin therapies. (3) Hypertension: Follow (amlodipine is currently being held) Supervising Physician Co-Signing Physician Notes Patient seen and examined with Daniel Villareal PA-C. Agree with findings and assessment as above. Pt with new onset afib with rvr in the setting of hip fracture. Completely asymptomatic and documented to be in sinus upon presentation. Beta rain held for 2 days likely also a precipitant. Atenolol changed to metoprolol and a dose of dig given. Would uptitrate metoprolol as bp allows. Cont heparin. 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 Cont to monitor. History of Present Illness Requesting Physician: North Pan MD Attending Physician: Durga Owen DO History of Present Illness Mr. Bennett is a very pleasant 84-year-old male who was admitted to [facility] on May 17, 2019, presenting secondary to shortness of breath of 4 to 5 days duration. At the entrance to the ER Mr. Bennett felt lightheaded and dizzy, subsequently falling and suffering a nondisplaced greater trochanteric fracture on the right that is going to be managed medically. Prior to arrival he was prescribed atenolol 50 mg/day and was notably bradycardic in the 40s both on EKGs obtained in the ER and recent evaluations as well as as an outpatient. Atenolol was held for parameters (bradycardia) on May 17, 2019 and May 18, 2019. Mr. Bennett lapsed into atrial fibrillation with a rapid ventricular response earlier this morning; short bursts of atrial fibrillation were first observed at 02:04 on 05/18/2019. He has been in atrial fibrillation since 03:57 AM. His heart rate since lapsing into atrial fibrillation have been in the 1'teens to 140s. Complete Review of Systems: Shortness of breath. Right hip discomfort. Numbness in the second, third, and fourth digits in the first upper extremity, chronic. Glasses. Urinary frequency, excessive urination. Nocturia. Denies history of congestive heart failure, valvular heart disease, arrhythmia, rheumatic fever, scarlet fever. Denies history of TIA or CVA. No history of thyroid problems. No history of diabetes mellitus. He denies chest pain. Denies palpitations. Denies orthopnea, PND, or peripheral edema. Denies syncope. Denies fevers or chills. Complete review of systems is as stated above, negativ e, or noncontributory. Past Medical and Surgical History: ASCVD. Status post off-pump coronary artery bypass grafting x3 on August 14, 2005 at [facility] by Dr. Jay, receiving a BATEMAN to the diagonal, reverse saphenous vein graft to the LAD, and a reverse saphenous vein graft to the obtuse marginal branch. Hypertension Dyslipidemia Remote history of tobacco abuse having quit in 1966. Urge incontinence Right hip surgery Tonsillectomy/adenoidectomy as a child. Prostatectomy Family History: Father with an ND at the age of 52. Brother with a brain tumor. Sister with CAD. Social History: Performed remote smoker having quit in 1966 after smoking 2 packs/day x 20 years. No smokeless tobacco use. Rare alcohol. No illegal drug use. . 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 Verified 05/17/19 22:39 Home Medications Home Medications Medication Instructions Recorded Confirmed Type amlodipine 5 mg PO QAM 04/09/19 05/17/19 History aspirin 81 mg PO QAM 04/09/19 05/17/19 History atenolol 50 mg PO QAM 04/09/19 05/17/19 History atorvastatin 20 mg PO QPM 04/09/19 05/17/19 History meloxicam 7.5 mg PO QAM 05/17/19 05/17/19 History Patient History Medical History Hematuria, gross (Acute 09/23/14) Hypertension (Chronic) Right wrist sprain (Acute) Strain of tendon of right rotator cuff (Acute) Confusion (Inactive) Expiratory wheezing (Inactive) Surgical History S/P triple vessel bypass Family History Other Bronchitis Social History Preferred Language: Romansh Communication Ability: Effective Visual Impairment: No Limitations Hearing Ability: Normal 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 NAD. HEENT: Normocephalic. Atraumatic. PER. Conjunctiva pink, sclera clear. Neck: No carotid bruits. No JVD. No HJR. Heart: Somewhat distant heart sounds. Irregularly irregular around 100 bpm. No murmur appreciated. No rub. PMI is nondisplaced. Lungs: Decreased. Diminished throughout, more so at the left base. No abnormal breath sounds appreciated. Abdomen: +BS. Soft. Nontender. No masses or organomegaly. Extremities: Trivial edema. No clubbing. No cyanosis. Limited neurological examination is without focal deficits. Pulses: radial=2/4, posterior tibial=1/4. Results & Data Vital Signs (Past 12 Hours) Vital Signs Temp Pulse Pulse Resp BP BP Pulse Ox 05/19/19 08:03 37.8 C H 118 H 19 107/64 97 05/19/19 05:08 135 H 133/82 05/19/19 04:42 128 H 122/78 05/19/19 04:00 37.4 C 91 H 22 107/61 94 05/19/19 02:47 89 22 97 05/19/19 00:25 54 L 05/18/19 23:00 36.8 C 54 L 21 160/78 H 95 Laboratory Results - last 24 hr 05/18/19 05/19/19 05/19/19 14:44 03:20 04:31 WBC 7.82 RBC 3.81 L Hgb 11.7 L Hct 34.9 L MCV 91.6 MCH 30.7 MCHC 33.5 RDW Std Deviation 46.7 H RDW Coeff of Flor 13.8 Plt Count 134 MPV 9.5 PT INR Sodium Potassium Chloride Carbon Dioxide Anion Gap BUN Creatinine Est Cr Clr Drug Dosing Est GFR ( Amer) Est GFR (Non-Af Amer) BUN/Creatinine Ratio Glucose POC Glucose 152 H Calcium Total Bilirubin AST ALT Alkaline Phosphatase Troponin I 0.026 Total Protein Albumin Globulin Albumin/Globulin Ratio TSH 05/19/19 05/19/19 05/19/19 04:31 04:31 04:31 WBC RBC Hgb Hct MCV MCH MCHC RDW Std Deviation RDW Coeff of Flor Plt Count MPV PT 11.5 INR 1.1 Sodium 134 L Potassium 3.4 L Chloride 101 Carbon Dioxide 26 Anion Gap 7.0 BUN 15 Creatinine 0.80 Est Cr Clr Drug Dosing 69.7 Est GFR ( Amer) 94.4 Est GFR (Non-Af Amer) 81.5 BUN/Creatinine Ratio 18.9 Glucose 159 H POC Glucose Calcium 8.0 L Total Bilirubin 0.5 AST 26 ALT 33 Alkaline Phosphatase 63 Troponin I 0.037 Total Protein 6.5 Albumin 3.1 L Globulin 3.4 Albumin/Globulin Ratio 0.9 TSH 05/19/19 04:31 WBC RBC Hgb Hct MCV MCH MCHC RDW Std Deviation RDW Coeff of Flor Plt Count MPV PT INR Sodium Potassium Chloride Carbon Dioxide Anion Gap BUN Creatinine Est Cr Clr Drug Dosing Est GFR ( Amer) Est GFR (Non-Af Amer) BUN/Creatinine Ratio Glucose POC Glucose Calcium Total Bilirubin AST ALT Alkaline Phosphatase Troponin I Total Protein Albumin Globulin Albumin/Globulin Ratio TSH Pending Diagnostic Findings EKG on April 09, 2019 revealed sinus bradycardia at 53 bpm with a first-degree AV block and voltage criteria for LVH. EKG on April 14, 2019 revealed marked sinus bradycardia with ventricular rate of 45 bpm, first-degree AV block with a TN interval of 230 ms. EKG on May 17, 2019 revealed sinus rhythm at 81 bpm with a first-degree AV block and premature supraventricular complexes EKG on May 19, 2019 revealed sinus rhythm with a first-degree AV block. Ventricular rate was 96 bpm. LVH noted as well. Second EKG obtained on May 19, 2019 revealed atrial fibrillation with a rapid ventricular response. Ventricular rate was [address]-T wave abnormality observed. Continuous telemetry monitoring revealed patient initially had sinus rhythm/sinus bradycardia on presentation. Short burst of atrial fibrillation were first observed around 02: 04 on May 18, 2019. He has been in atrial fibrillation since 03: 57 on May 18, 2019. Heart rates in atrial fibrillation ranging from the 1 teens to 130s primarily. May 18, 2019 TTE Interpretation Summary ([facility]): Normal LV chamber size with mild concentric LVH. Normal LV systolic function, EF 60 to 65%. No segmental left ventricular wall motion abnormalities. Grade 2 diastolic dysfunction. Mild aortic valve sclerosis without significant stenosis. Moderate mitral annular calcification. The mitral valve leaflets were noted to be thickened but open well. Mild mitral regurgitation observed. No mitral stenosis noted.
[2019-05-19] MEDS ORDERED: DIGOXIN 250 MCG in SYRINGE 9 ML IV ONE (09:00)
[2019-05-19] MEDS ORDERED: METOPROLOL SUCC 50MG EXT REL TAB PO STA (09:27)
[2019-05-19] MEDS ORDERED: POTASSIUM CHLORIDE 20 MEQ TABCR PO STA (09:29)
--- NOTE | 2019-05-19 09:35 | Progress Note ---
DATE: 05/19/2019 CHIEF COMPLAINT: Right nondisplaced greater trochanter fracture around a total hip replacement. SUBJECTIVE: An 84-year-old gentleman admitted with some pneumonia and a fall. No new complaints today. He has no pain while lying in bed. He says he just has lateral hip pain when he moves his hips some. No groin pain. He has not been out of bed apparently. He has been transferred to the PCU as he has been a bit tachycardic. OBJECTIVE: VITAL SIGNS: Temperature 37.4. Vital signs are stable but he is tachycardic with a pulse of 135 at times. GENERAL: Reveals a pleasant elderly male. He is lying in bed. Looks reasonably comfortable. Looks like he is struggling a little bit to breathe. EXTREMITIES: Examination of the right hip reveals no visible deformity. He has got no bruising. He is tender over the lateral side of the hip in the trochanter. He can do a straight leg raise. Minimal pain with passive motion. ASSESSMENT: An 84-year-old gentleman status post total hip replacement and a recent fall with a nondisplaced greater trochanter fracture. This is a stable fracture. He can weight bear as tolerated. We will just do no active hip abduction for 6 weeks. PLAN: Medical management as per the medicine service. He can progress activities and weight bear as tolerated. No active abduction for 6 weeks. I should see him back in my clinic in maybe about a month. Any orthopedic questions can be directed at [phone].
[2019-05-19] MEDS: DOXYCYCLINE HYCLATE 100 MG in DEXTROSE 5% 100 ML IV SCH ×2 (09:51→20:53)
[2019-05-19 14:13] LABS: Partial Thromboplastin Ratio 2.1
[2019-05-19 14:21] LABS: Partial Thromboplastin Time 56.3 Seconds (21.0-31.0)
[2019-05-19] MEDS: ACETAMINOPHEN 325 MG TAB PO PRN (17:48)
[2019-05-19] MEDS: ATORVASTATIN 20 MG TAB PO SCH (20:53)
[2019-05-20] MEDS: cefTRIAXone SODIUM 1,000 MG in DEXTROSE 5% 50 ML IV SCH (01:56)
[2019-05-20 06:51] LABS: Hemoglobin 11.3 g/dL (14.0-18.0); Mean Corpuscular Hgb Conc 34.2 g/dL (32-36); Mean Corpuscular Volume 91.4 fL (80-100); Mean Platelet Volume 9.8 fL (7.4-10.4); Platelet Count 139 K/uL (130-400); RDW Coefficient of Variation 13.8 % (11.5-14.5); RDW Standard Deviation 46.3 fL (36.4-46.3); Red Blood Count 3.61 M/uL (4.7-6.1); White Blood Count 7.76 K/uL (4.8-10.8)
[2019-05-20 07:15] LABS: Partial Thromboplastin Ratio 2.8
[2019-05-20 07:16] LABS: Partial Thromboplastin Time 77.1 Seconds (21.0-31.0)
[2019-05-20 07:26] LABS: BUN Creatinine Ratio 18.6 (10-20); Calcium 8.2 mg/dl (8.5-10.1); Creatinine Clr Calc Pharmacy 64.1 ml/min; Est GFR (African American) 91.2; Est GFR (Non-African American) 78.7; Potassium 3.4 mmol/L (3.5-5.1)
[2019-05-20] MEDS: DOXYCYCLINE HYCLATE 100 MG in DEXTROSE 5% 100 ML IV SCH ×2 (08:08→20:39)
--- NOTE | 2019-05-20 08:43 | Cardiology Progress Note ---
Date of Service May 20, 2019 Assessment & Plan (1) Atrial fibrillation with rapid ventricular response: New onset asymptomatic atrial fibrillation, initially observed on 05/18/2019, occurring in the setting of pneumonia, right hip pain, beta-rain withdrawal, hypokalemia. [id number] Score: 3 points Atenolol discontinued in favor of Toprol XL given moderate bradycardia prior to hospitalization. Continue Toprol-XL 50 mg/day Utilize heparin for now. ? candidate for detention anticoagulation. 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 Asymptomatic Continue beta-rain, ASA, and statin therapies. (3) Hypertension: Well controlled Follow. Note: amlodipine on hold, versus discontinued Supervising Physician Co-Signing Physician Notes Patient seen and examined with Daniel Villareal PA-C. Agree with findings and assessment as above. Rates improved with uptitration of beta blockade. I am hopeful that he will convert to sinus on his own but we may consider chemical cardioversion on 05/21 should he remain in afib. 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 Subjective Patient seen and examined. Chart, medications, telemetry reviewed. Patient notes nausea yesterday after IV digoxin. No nausea today. No GI upset currently. He denies chest pain, palpitations, shortness of breath, orthopnea, PND, or peripheral edema. No dizziness, near-syncope, or syncope. No fevers or chills. May 18, 2019 TTE Interpretation Summary ([facility]): Normal LV chamber size with mild concentric LVH. Normal LV systolic function, EF 60 to 65%. No segmental left ventricular wall motion abnormalities. Grade 2 diastolic dysfunction. Mild aortic valve sclerosis without significant stenosis. Moderate mitral annular calcification. The mitral valve leaflets were noted to be thickened but open well. Mild mitral regurgitation observed. No mitral stenosis noted. EKG this morning reveals atrial fibrillation with a ventricular rate of 90 bpm. There is voltage criteria for LVH. ST-T wave abnormality inferiorly as well as laterally. QTC is 445 ms. Review of the patient's continuous youth nutritional monitor reveals atrial fibrillation ranging from 70 to 90 bpm. Review of Systems Review of Systems: All systems reviewed & are unremarkable except as noted in HPI & below Physical Exam Physical Exam: General: A&Ox3. NAD. HEENT: Normocephalic. Atraumatic. PER. Conjunctiva pink, sclera clear. Neck: No carotid bruits. No JVD. No HJR. Heart: Somewhat distant heart sounds. Irregularly irregular in the 80's. No murmur appreciated. No rub. PMI is nondisplaced. Lungs: Decreased. Diminished throughout, more so at the left base. No abnormal breath sounds appreciated. Abdomen: +BS. Soft. Nontender. No masses or organomegaly. Extremities: Trivial edema. No clubbing. No cyanosis. Limited neurological examination is without focal deficits. Pulses: radial=2/4, posterior tibial=1/4. Results & Data Vital Signs (Past 12 Hours) Vital Signs Temp Pulse Pulse Resp BP Pulse Ox 05/20/19 07:43 36.7 C 90 18 118/82 94 05/20/19 03:42 36.7 C 95 H 16 116/77 95 05/19/19 23:57 36.6 C 78 16 125/77 95 05/19/19 23:30 80 Laboratory Results - last 24 hr 05/19/19 05/19/19 05/19/19 04:31 09:29 13:40 WBC RBC Hgb Hct MCV MCH MCHC RDW Std Deviation RDW Coeff of Flor Plt Count MPV APTT 56.3 H* PTT Ratio 2.1 Sodium Potassium Chloride Carbon Dioxide Anion Gap BUN Creatinine Est Cr Clr Drug Dosing Est GFR ( Amer) Est GFR (Non-Af Amer) BUN/Creatinine Ratio Glucose Calcium Troponin I 0.077 H* TSH 1.960 05/19/19 05/20/19 05/20/19 15:48 06:31 06:31 WBC 7.76 RBC 3.61 L Hgb 11.3 L Hct 33.0 L MCV 91.4 MCH 31.3 MCHC 34.2 RDW Std Deviation 46.3 RDW Coeff of Flor 13.8 Plt Count 139 MPV 9.8 APTT PTT Ratio Sodium 136 Potassium 3.4 L Chloride 102 Carbon Dioxide 28 Anion Gap 6.0 BUN 16 Creatinine 0.87 Est Cr Clr Drug Dosing 64.1 Est GFR ( Amer) 91.2 Est GFR (Non-Af Amer) 78.7 BUN/Creatinine Ratio 18.6 Glucose 119 H Calcium 8.2 L Troponin I 0.114 H* TSH 05/20/19 06:31 WBC RBC Hgb Hct MCV MCH MCHC RDW Std Deviation RDW Coeff of Flor Plt Count MPV APTT 77.1 H* PTT Ratio 2.8 Sodium Potassium Chloride Carbon Dioxide Anion Gap BUN Creatinine Est Cr Clr Drug Dosing Est GFR ( Amer) Est GFR (Non-Af Amer) BUN/Creatinine Ratio Glucose Calcium Troponin I TSH
[2019-05-20] MEDS ORDERED: POTASSIUM CHLORIDE 10 MEQ TABCR PO STA (08:52)
--- NOTE | 2019-05-20 09:10 | Hospitalist Progress Note ---
Date of Service May 20, 2019 Assessment & Plan (1) Syncope: (2) Fracture of prosthetic hip: (3) Pneumonitis: (4) Weakness: (5) S/P triple vessel bypass: (6) Hypertension: (7) Atrial fibrillation with rapid ventricular response: Patient said he feels horrible today, he was seen by cardiology Dr. Villareal who made the following recommendations; New onset asymptomatic atrial fibrillation, initially observed on 05/18/2019, occurring in the setting of pneumonia, right hip pain, beta-rain withdrawal, hypokalemia. Atenolol discontinued in favor of Toprol XL given moderate bradycardia prior to hospitalization. Continue Toprol-XL 50 mg/day Utilize heparin for now. 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 Supplement potassium orally Continue abx for the pneumonia/pneumonitis, No surgery needed for prosthetic fracture, PT eval and treat, discharge in the next 1 to 2 days, patient still in atrial fibrillation the 8 bpm. He is still on IV heparin. Labs Checked ROS-No Headache, No Visual Changes, No Nausea, No Vomiting, No Fever, No Chills, No Neck Pain or Stiffness, No Chest Pain, No Palpitations, No SOB, No SUAZO, No Cough, No Sputum, No Wheezing, No Abdominal Pain, No Diarrhea, No Hematemesis, No Hemoptysis, No Unexpected Weight Loss, No Flank pain, No Melena, No Hematochezia, No Frequency, No Urgency, No Burning, No Hematuria, No Rashes, No Diaphoresis. Appetite is Normal, feels horrible Physical Exam Gen-AAO x 3, NAD, Afebrile Head-NCAT, EOMI, PERRLA, Anicteric Sclera, No Posterior Pharyngeal Erythema Neck-Supple, No JVD, No Thyromegaly, No Masses, No LAD, No Bruits Lungs-Clear to Auscultation Bilaterally, No Rales, No Rhonchi, No Wheezing, No Crepitus Chest-irregularly irregular no S4, +S1, +S2, No S3, No Murmurs, No Rubs, No Gallops Abdomen-Soft, Bowel Sounds Present, Non Tender, Non Distended, No Hepatomegaly, No Splenomegaly, No Palpable Masses, No Rebound, No Rigidity, No Guarding Musculoskeletal-Full Range of Motion Bilaterally, No CVAT Extremities-No Cyanosis, No Clubbing, No Edema Nuero-Cranial Nerves II-XII grossly intact, Motor WNL, DTRs WNL, Strength WNL, Non Focal Psych-Normal Mood Results & Data Vital Signs (Past 12 Hours) Vital Signs Temp Pulse Pulse Resp BP Pulse Ox 05/20/19 07:43 36.7 C 90 18 118/82 94 05/20/19 03:42 36.7 C 95 H 16 116/77 95 05/19/19 23:57 36.6 C 78 16 125/77 95 05/19/19 23:30 80 (1) Syncope Syncope type: unspecified Qualified Code(s): R55 - Syncope and collapse (2) Fracture of prosthetic hip Encounter type: initial encounter Qualified Code(s): T84.019A - Broken internal joint prosthesis, unspecified site, initial encounter; Z96.649 - Pres ence of unspecified artificial hip joint
[2019-05-20] MEDS: METOPROLOL SUCC 50MG EXT REL TAB PO SCH (10:20)
[2019-05-20 14:16] LABS: Partial Thromboplastin Ratio 2.4
[2019-05-20 14:38] LABS: Partial Thromboplastin Time 66.3 Seconds (21.0-31.0)
[2019-05-20] MEDS: Heparin Adult STANDARD Wt-Based Dextrose 5% 25,000 units/500 mL IV SCH (19:55)
[2019-05-20] MEDS: ATORVASTATIN 20 MG TAB PO SCH (19:55)
[2019-05-21] MEDS: cefTRIAXone SODIUM 1,000 MG in DEXTROSE 5% 50 ML IV SCH (01:46)
[2019-05-21 06:44] LABS: Hematocrit (blood only) 32.9 % (42-52); Mean Corpuscular Hgb Conc 33.4 g/dL (32-36); Mean Corpuscular Volume 91.1 fL (80-100); Mean Platelet Volume 9.9 fL (7.4-10.4); Platelet Count 147 K/uL (130-400); RDW Coefficient of Variation 13.8 % (11.5-14.5); RDW Standard Deviation 46.2 fL (36.4-46.3); Red Blood Count 3.61 M/uL (4.7-6.1); White Blood Count 7.16 K/uL (4.8-10.8)
[2019-05-21 07:01] LABS: Partial Thromboplastin Ratio 2.3
[2019-05-21 07:04] LABS: Partial Thromboplastin Time 63.2 Seconds (21.0-31.0)
[2019-05-21 07:10] LABS: BUN Creatinine Ratio 20.2 (10-20); Calcium 8.3 mg/dl (8.5-10.1); Creatinine Clr Calc Pharmacy 69.7 ml/min; Est GFR (African American) 94.4; Est GFR (Non-African American) 81.5; Potassium 3.8 mmol/L (3.5-5.1)
[2019-05-21] MEDS: METOPROLOL SUCC 50MG EXT REL TAB PO SCH (08:11)
[2019-05-21] MEDS: DOXYCYCLINE HYCLATE 100 MG in DEXTROSE 5% 100 ML IV SCH (08:53)
--- NOTE | 2019-05-21 09:42 | Cardiology Progress Note ---
Date of Service May 21, 2019 Assessment & Plan (1) Atrial fibrillation with rapid ventricular response: New onset asymptomatic atrial fibrillation. Initially observed on 05/18/2019 and occurring in the setting of pneumonia, right hip pain, beta- rain withdrawal, hypokalemia. [id number] Score: 3 points. On heparin. 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 Continue Toprol-XL 50 mg/day ? Attempted chemical cardioversion with amiodarone (see documentation by Dr. 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 Asymptomatic Continue beta-rain, ASA, and statin therapies. (3) Hypertension: Amlodipine is on hold; will likely need to resume at 2.5 to 5 mg/day. Supervising Physician Co-Signing Physician Notes Patient seen and examined with Daniel Villareal PA-C. Agree with findings and assessment as above. Mr. Bennett remains asymptomatic from a cardiac standpoint and his heart rates are now controlled. Given concomitant risk of DVT with hip fracture being treated medically will start coumadin. My hope is that he will spontaneously convert to sinus with continued beta blockade. Ok to d/c tele from cardiac standpoint. Subjective Patient seen and examined. Chart, medications, and telemetry reviewed. Patient feels well this morning. His lone complaint voiced is that of right hip discomfort with movement. He specifically denies chest pain, palpitations, shortness of breath, dizziness, near syncope, syncope, orthopnea, PND, or peripheral edema. Continuous telemetry monitoring reveals that the patient remains in atrial fibrillation with a controlled ventricular response. His ventricular rates have been in the 80s to 90s on Toprol-XL 50 mg/day. Review of Systems Review of Systems: All systems reviewed & are unremarkable except as noted in HPI & below Constitutional: no fever and no chills Respiratory: no chest congestion and no hemoptysis Cardiovascular: no chest pain, no dyspnea at rest, no orthopnea, no paroxysmal nocturnal dyspnea, no palpitations, no lightheadedness, no syncope and no edema Gastrointestinal: no nausea, no vomiting and no dysphagia Genitourinary: no hematuria Musculoskeletal: as per Subjective / HPI Neurologic: no headache(s) Physical Exam Physical Exam: General: A&Ox3. NAD. HEENT: Normocephalic. Atraumatic. PER. Conjunctiva pink, sclera clear. Neck: No carotid bruits. No JVD. No HJR. Heart: Somewhat distant heart sounds. Irregularly irregular around 90 bpm. No murmur appreciated. No rub. PMI is nondisplaced. Lungs: Decreased. Diminished throughout, more so at the left base. No abnormal breath sounds appreciated. Abdomen: +BS. Soft. Nontender. No masses or organomegaly. Extremities: No edema. No clubbing. No cyanosis. Limited neurological examination is without focal deficits. Pulses: radial=2/4, posterior tibial=1/4. Results & Data Vital Signs (Past 12 Hours) Vital Signs Temp Pulse Pulse Resp BP Pulse Ox 05/21/19 07:13 36.5 C 91 H 18 159/78 H 94 05/21/19 03:08 36.6 C 86 19 146/78 H 96 05/21/19 00:15 99 H 05/20/19 23:46 36.8 C 87 16 138/92 94 Laboratory Results - last 24 hr 05/20/19 05/21/19 05/21/19 13:40 06:15 06:15 WBC 7.16 RBC 3.61 L Hgb 11.0 L Hct 32.9 L MCV 91.1 MCH 30.5 MCHC 33.4 RDW Std Deviation 46.2 RDW Coeff of Flor 13.8 Plt Count 147 MPV 9.9 APTT 66.3 H* PTT Ratio 2.4 Sodium 137 Potassium 3.8 Chloride 102 Carbon Dioxide 29 Anion Gap 6.0 BUN 16 Creatinine 0.80 Est Cr Clr Drug Dosing 69.7 Est GFR ( Amer) 94.4 Est GFR (Non-Af Amer) 81.5 BUN/Creatinine Ratio 20.2 H Glucose 115 H Calcium 8.3 L 05/21/19 06:15 WBC RBC Hgb Hct MCV MCH MCHC RDW Std Deviation RDW Coeff of Flor Plt Count MPV APTT 63.2 H* PTT Ratio 2.3 Sodium Potassium Chloride Carbon Dioxide Anion Gap BUN Creatinine Est Cr Clr Drug Dosing Est GFR ( Amer) Est GFR (Non-Af Amer) BUN/Creatinine Ratio Glucose Calcium
--- NOTE | 2019-05-21 15:33 | Progress Note ---
DATE: 05/21/2019 SUBJECTIVE: An 84-year-old gentleman admitted status post a fall with a right nondisplaced greater trochanteric fracture. He is doing well. No particular pain in his hip today. No new complaints. He was talking to a friend on the phone when I went in the room. OBJECTIVE: VITAL SIGNS: Temperature is 36.5. Vital signs stable. EXTREMITIES: Examination of the right hip and leg reveals the leg lengths to be equal. Leg is well aligned. His hip incisions are without swelling. He can do a straight leg raise. He is neurologically intact. ASSESSMENT: An 84-year-old gentleman admitted with some respiratory issues, status post a fall with a nondisplaced greater trochanteric fracture. He is clinically doing well. PLAN: From the orthopedic standpoint, he can weightbear as tolerated. No active hip abduction for 6 weeks. Any orthopedic questions can be directed to me at [phone]. I am going to sign off for now. I should see him back somewhere between 4-6 weeks from his hospitalization.
[2019-05-21] MEDS: WARFARIN SOD 5 MG TAB PO SCH (17:14)
[2019-05-21] MEDS: Heparin Adult STANDARD Wt-Based Dextrose 5% 25,000 units/500 mL IV SCH (17:14)
[2019-05-21] MEDS: DOXYCYCLINE HYCLATE 100 MG CAP PO SCH (20:02)
[2019-05-21] MEDS: ATORVASTATIN 20 MG TAB PO SCH (20:02)
--- NOTE | 2019-05-21 20:59 | Hospitalist Progress Note ---
Date of Service May 21, 2019 Assessment & Plan (1) Pneumonia: Presented to ED with shortness of breath. CTA of chest was negative for pulmonary embolism, but demonstrated infiltrate versus atelectasis at left base. Started on antibiotic coverage with doxycycline and ceftriaxone. Afebrile. Pulmonary status stable. (2) Syncope: Syncope versus near syncope while coming to the ED for evaluation of his dyspnea. Head CT negative. Cardiac rhythm was normal sinus rhythm at time of admission, but subsequently developed atrial fibrillation as discussed below. (3) Fracture of prosthetic hip: Patient fell while coming to the ED for evaluation of his shortness of breath. Plain films and CT of right hip demonstrated fracture of the greater trochanter of the right hip with previous total hip arthroplasty. Orthopedics consulted. No need for surgical intervention. Increase activity as tolerated. (4) Coronary artery disease: History coronary artery disease, status post CABG. Elevated troponins associated with rapid atrial fibrillation. Continue metoprolol. (5) Atrial fibrillation with rapid ventricular response: Developed atrial fibrillation with rapid ventricular response on 05/19/2019. Serum potassium was as low as 3.4 and corrected. Serum magnesium was normal. TSH was normal. Echocardiogram performed on 05/18/2019 showed normal left atrial and right atrial dimensions. Seen in consultation by Cardiology. Metoprolol recommended for rate control. Anticoagulation with IV heparin --> warfarin. (6) Hypertension: Continue metoprolol. Follow and titrate therapy. (7) DVT prophylaxis: SCDs ordered at the time of admission. Subsequently started on IV heparin and warfarin for atrial fibrillation as discussed above. (8) Discharge planning issues: Anticipated need for skilled care. Case Management consulted. Family Medicine follow-up with Dr. Funk. Subjective Recheck for multiple problems. Patient seen in their room around 0930. Doing well. No chest pain, shortness of breath, palpitations. Still has right hip pain, but only with activity and movement. Review of Systems: Constitutional- no fever. Cardiac- as noted above. Pulmonary- no cough or SOB. GI- no nausea, vomiting, diarrhea, melena, hematochezia. - no urinary symptoms. Otherwise, as noted above. Physical Exam Constitutional: no acute distress Respiratory: no respiratory distress Auscultation: lungs clear to auscultation bilaterally Cardiovascular: Rate/Rhythm: + irregularly irregular Heart Sounds: no gallop, no murmur and no cardiac rub Vessels: + JVD Extremities: no calf tenderness and no edema Gastrointestinal (Abdomen): normal bowel sounds, soft, nontender, no hepatosplenomegaly Musculoskeletal: SCD's applied Skin: no rashes, warm and dry Psychiatric: Orientation: alert and oriented x 3 Results & Data Vital Signs (Past 12 Hours) Vital Signs Temp Pulse Pulse Resp BP BP Pulse Ox 05/21/19 19:17 37.0 C 89 18 150/98 H 95 05/21/19 16:00 84 05/21/19 15:11 36.6 C 95 H 20 156/88 H 95 05/21/19 11:46 36.5 C 87 18 125/78 97 Laboratory Results Laboratory Results - last 24 hr 05/21/19 05/21/19 05/21/19 06:15 06:15 06:15 WBC 7.16 RBC 3.61 L Hgb 11.0 L Hct 32.9 L MCV 91.1 MCH 30.5 MCHC 33.4 RDW Std Deviation 46.2 RDW Coeff of Flor 13.8 Plt Count 147 MPV 9.9 APTT 63.2 H* PTT Ratio 2.3 Sodium 137 Potassium 3.8 Chloride 102 Carbon Dioxide 29 Anion Gap 6.0 BUN 16 Creatinine 0.80 Est Cr Clr Drug Dosing 69.7 Est GFR ( Amer) 94.4 Est GFR (Non-Af Amer) 81.5 BUN/Creatinine Ratio 20.2 H Glucose 115 H Calcium 8.3 L (1) Syncope Syncope type: unspecified Qualified Code(s): R55 - Syncope and collapse (2) Fracture of prosthetic hip Encounter type: initial encounter Qualified Code(s): T84.019A - Broken internal joint prosthesis, unspecified site, initial encounter; Z96.649 - Presence of unspecified artificial hip joint
[2019-05-22] MEDS: cefTRIAXone SODIUM 1,000 MG in DEXTROSE 5% 50 ML IV SCH (01:08)
[2019-05-22] MEDS: DOXYCYCLINE HYCLATE 100 MG CAP PO SCH ×2 (08:15→20:40)
[2019-05-22] MEDS: METOPROLOL SUCC 50MG EXT REL TAB PO SCH (08:15)
[2019-05-22 08:21] LABS: Hematocrit (blood only) 34.7 % (42-52); Hemoglobin 11.8 g/dL (14.0-18.0); Mean Corpuscular Volume 93.3 fL (80-100); Mean Platelet Volume 9.5 fL (7.4-10.4); Platelet Count 164 K/uL (130-400); RDW Coefficient of Variation 13.7 % (11.5-14.5); Red Blood Count 3.72 M/uL (4.7-6.1)
[2019-05-22 08:42] LABS: INR 1.1 (0.9-1.1); Partial Thromboplastin Ratio 2.1; Prothrombin Time 11.6 Seconds (9.0-12.0)
[2019-05-22] MEDS: Heparin Adult STANDARD Wt-Based Dextrose 5% 25,000 units/500 mL IV SCH (13:29)
[2019-05-22] MEDS: WARFARIN SOD 5 MG TAB PO SCH (16:16)
--- NOTE | 2019-05-22 18:27 | Hospitalist Progress Note ---
Date of Service May 22, 2019 Assessment & Plan (1) Pneumonia: Presented to ED with shortness of breath. CTA of chest was negative for pulmonary embolism, but demonstrated infiltrate versus atelectasis at left base. Started on antibiotic coverage with doxycycline and ceftriaxone. Afebrile. Pulmonary status stable. (2) Syncope: Syncope versus near syncope while coming to the ED for evaluation of his dyspnea. Head CT negative. Cardiac rhythm was normal sinus rhythm at time of admission, but subsequently developed atrial fibrillation as discussed below. (3) Fracture of prosthetic hip: Patient fell while coming to the ED for evaluation of his shortness of breath. Plain films and CT of right hip demonstrated fracture of the greater trochanter of the right hip with previous total hip arthroplasty. Orthopedics consulted. No need for surgical intervention. Increase activity as tolerated. (4) Coronary artery disease: History coronary artery disease, status post CABG. Elevated troponins associated with rapid atrial fibrillation. Continue metoprolol. (5) Atrial fibrillation with rapid ventricular response: Developed atrial fibrillation with rapid ventricular response on 05/19/2019. Serum potassium was as low as 3.4 and corrected. Serum magnesium was normal. TSH was normal. Echocardiogram performed on 05/18/2019 showed normal left atrial and right atrial dimensions. Seen in consultation by Cardiology. Metoprolol recommended for rate control. Anticoagulation with IV heparin --> warfarin. (6) Hypertension: Continue metoprolol. Follow and titrate therapy. (7) DVT prophylaxis: SCDs ordered at the time of admission. Subsequently started on IV heparin and warfarin for atrial fibrillation as discussed above. (8) Discharge planning issues: Anticipated need for skilled care. Case Management consulted. Family Medicine follow-up with Dr. Funk. Subjective Recheck for multiple problems. Patient seen in their room around 11:10. Remains in AF. No chest pain, shortness of breath, palpitations. Right hip pain improved. Review of Systems: Constitutional- no fever. Cardiac- as noted above. Pulmonary- no cough or SOB. GI- no nausea, vomiting, diarrhea, melena, hematochezia. - chronic urinary incontinence, using condom cath. Otherwise, as noted above. Physical Exam Constitutional: no acute distress Respiratory: no respiratory distress Auscultation: lungs clear to aus cultation bilaterally Cardiovascular: Rate/Rhythm: + irregularly irregular Heart Sounds: no gallop, no murmur and no cardiac rub Vessels: + JVD Extremities: no calf tenderness and no edema Gastrointestinal (Abdomen): normal bowel sounds, soft, nontender, no hepatosplenomegaly Skin: no rashes, warm and dry Psychiatric: Orientation: alert and oriented x 3 Results & Data Vital Signs (Past 12 Hours) Vital Signs Temp Pulse Pulse Resp BP BP Pulse Ox 05/22/19 15:58 36.8 C 106 H 21 128/73 95 05/22/19 11:55 37.5 C 88 20 127/72 97 05/22/19 08:00 98 H 05/22/19 07:40 37.1 C 88 18 145/82 H 95 Laboratory Results Laboratory Results - last 24 hr 05/22/19 05/22/19 08:10 08:10 WBC 9.10 RBC 3.72 L Hgb 11.8 L Hct 34.7 L MCV 93.3 MCH 31.7 MCHC 34.0 RDW Std Deviation 47.0 H RDW Coeff of Flor 13.7 Plt Count 164 MPV 9.5 PT 11.6 INR 1.1 APTT 58.0 H* PTT Ratio 2.1 (1) Syncope Syncope type: unspecified Qualified Code(s): R55 - Syncope and collapse (2) Fracture of prosthetic hip Encounter type: initial encounter Qualified Code(s): T84.019A - Broken internal joint prosthesis, unspecified site, initial encounter; Z96.649 - Presence of unspecified artificial hip joint
[2019-05-22] MEDS: ATORVASTATIN 20 MG TAB PO SCH (20:40)
[2019-05-23] MEDS: cefTRIAXone SODIUM 1,000 MG in DEXTROSE 5% 50 ML IV SCH (01:25)
[2019-05-23] MEDS: LEVALBUTEROL HCL 0.63 MG/3 ML NEB NEB PRN ×2 (03:23→14:01)
[2019-05-23 08:03] LABS: INR 1.2 (0.9-1.1); Partial Thromboplastin Ratio 2.2; Prothrombin Time 12.3 Seconds (9.0-12.0)
[2019-05-23 08:05] LABS: Partial Thromboplastin Time 59.8 Seconds (21.0-31.0)
[2019-05-23] MEDS: METOPROLOL SUCC 50MG EXT REL TAB PO SCH (08:29)
[2019-05-23] MEDS: DOXYCYCLINE HYCLATE 100 MG CAP PO SCH ×2 (08:30→20:50)
[2019-05-23] MEDS: Heparin Adult STANDARD Wt-Based Dextrose 5% 25,000 units/500 mL IV SCH (08:33)
--- NOTE | 2019-05-23 09:04 | Cardiology Progress Note ---
Date of Service May 23, 2019 Assessment & Plan (1) Atrial fibrillation with rapid ventricular response: Atrial fibrillation. Initially observed on 05/18/2019 and occurring in the setting of pneumonia, right hip pain, beta-rain withdrawal, hypokalemia. [id number] Score: 3 points. On heparin with transition to Coumadin anticoagulation. INR Goal: 2.0 - 3.0. Increase Toprol-XL from 50 mg/day to 75 mg/day for additional heart rate and blood pressure control. (2) SOB (shortness of breath): ? Deconditioning, atrial fibrillation, other. 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 Continue beta-rain, ASA, and statin therapies. (4) Hypertension: Amlodipine (5 mg/day) discontinued this hospitalization. Atenolol (50 mg/day) switched to Toprol XL (75 mg/day) this hospitalization. Supervising Physician Co-Signing Physician Notes Patient seen and examined with Daniel Villareal PA-C. Agree with findings and assessment as above. Rates increased over last 24 hours with atelectasis on chest xray, will uptitrate metoprolol as above. Cont heparin bridge with coumadin, goal INR of 2- 3. Subjective Patient seen & examined. Chart, medications, and telemetry reviewed. Patient notes right hip weakness and dyspnea with activity. He denies chest pain, palpitations, resting dyspnea, dizziness, syncope, PND, or edema. Continuous telemetry monitoring reveals atrial fibrillation in the 80 to 110 bpm range predominately, on Toprol-XL 50 mg/day. Physical Exam Physical Exam: General: A&Ox3. NAD. HEENT: Normocephalic. Atraumatic. PER. Conjunctiva pink, sclera clear. Neck: No carotid bruits. No JVD. No HJR. Heart: Somewhat distant heart sounds. Irregularly irregular in the 90's. No murmur appreciated. No rub. PMI is nondisplaced. Lungs: Decreased throughout. Absent at the left base. Abdomen: +BS. Soft. Nontender. No masses or organomegaly. Extremities: No edema. No clubbing. No cyanosis. Limited neurological examination is without focal deficits. Pulses: radial=2/4, posterior tibial=1/4. Results & Data Vital Signs (Past 12 Hours) Vital Signs Temp Pulse Resp BP BP Pulse Ox 05/23/19 07:51 36.7 C 112 H 19 131/83 92 05/23/19 03:25 107 H 16 94 05/23/19 03:08 36.0 C L 101 H 24 164/82 H 93 05/22/19 23:45 92 H 25 H 145/90 H 93 05/22/19 22:50 36.7 C 101 H 20 160/94 H 92 Laboratory Results - last 24 hr 05/23/19 05/23/19 07:11 07:11 PT 12.3 H INR 1.2 H APTT 59.8 H* PTT Ratio 2.2 Potassium 3.7
--- NOTE | 2019-05-23 09:11 | XRay Report ---
XR chest 1V portable CLINICAL HISTORY: SOB dizziness COMPARISON STUDY: 05/17/2019 FINDINGS: Mild stable cardiomegaly. Prior median sternotomy. Interval development of atelectasis left base. Right lung is well pulmonary apices are clear. There i s small fixed hiatal hernia. IMPRESSION: 1. Hiatal hernia. 2. Atelectasis left base. The above report was generated using voice recognition software. It may contain grammatical, syntax or spelling errors. Electronically signed by: Daniel Mandel M.D. 05/23/2019 9:10 AM
[2019-05-23] MEDS ORDERED: METOPROLOL SUCC 25MG EXT REL TAB PO ONE (09:16)
[2019-05-23] MEDS: WARFARIN SOD 5 MG TAB PO SCH (16:03)
[2019-05-23] MEDS: ATORVASTATIN 20 MG TAB PO SCH (20:50)
--- NOTE | 2019-05-23 20:58 | Hospitalist Progress Note ---
Date of Service May 23, 2019 Assessment & Plan (1) Pneumonia: Presented to ED with shortness of breath. CTA of chest was negative for pulmonary embolism, but demonstrated infiltrate versus atelectasis at left base. Started on antibiotic coverage with doxycycline and ceftriaxone. Afebrile. (2) Pulmonary atelectasis: Chest x-ray today shows worsening atelectasis left base. Incentive spirometry. Mobilize. (3) Syncope: Syncope versus near syncope while coming to the ED for evaluation of his dyspnea. Head CT negative. Cardiac rhythm was normal sinus rhythm at time of admission, but subsequently de veloped atrial fibrillation as discussed below. (4) Fracture of prosthetic hip: Patient fell while coming to the ED for evaluation of his shortness of breath. Plain films and CT of right hip demonstrated fracture of the greater trochanter of the right hip with previous total hip arthroplasty. Orthopedics consulted. No need for surgical intervention. Increase activity as tolerated. Weight bearing as tolerated, but no abduction of hip for 6 weeks. (5) Coronary artery disease: History coronary artery disease, status post CABG. Elevated troponins associated with rapid atrial fibrillation. Continue metoprolol. (6) Atrial fibrillation with rapid ventricular response: Developed atrial fibrillation with rapid ventricular response on 05/19/2019. Serum potassium was as low as 3.4 and corrected. Serum magnesium was normal. TSH was normal. Echocardiogram performed on 05/18/2019 showed normal left atrial and right atrial dimensions. Seen in consultation by Cardiology. Metoprolol recommended for rate control. Ventricular rate still fast at times and metoprolol dose increased today. Anticoagulation with IV heparin --> warfarin. (7) Hypertension: Continue metoprolol. Follow and titrate therapy. (8) DVT prophylaxis: SCDs ordered at the time of admission. Subsequently started on IV heparin and warfarin for atrial fibrillation as discussed above. (9) Discharge planning issues: Anticipated need for skilled care. Case Management consulted. Family Medicine follow-up with Dr. Funk. Son given update by phone. He would like patient to get home as soon as possible, but needs his functional status to be better since he is taking care of his elderly mother as well. He agrees to short stay at [facility] once medically stable. Subjective Recheck for multiple problems. Patient seen in their room around 14:30. Remains in AF. Rate fast at times. No chest pain or palpitations. [place] somewhat SOB this morning. No cough. Right hip pain improved. Review of Systems: Constitutional- no fever. Cardiac- as noted above. Pulmonary- as noted above. GI- no nausea, vomiting, diarrhea, melena, hematochezia. - chronic urinary incontinence, using condom cath. Otherwise, as noted above. Physical Exam Constitutional: no acute distress Respiratory: no respiratory distress Auscultation: + diminished lung sounds (left base) and + wheezes (mild) Cardiovascular: Rate/Rhythm: + irregularly irregular Heart Sounds: no gallop, no murmur and no cardiac rub Vessels: + JVD Extremities: no calf tenderness and no edema Gastrointestinal (Abdomen): normal bowel sounds, soft, nontender, no hepatosplenomegaly Skin: no rashes, warm and dry Psychiatric: Orientation: alert and oriented x 3 Results & Data Vital Signs (Past 12 Hours) Vital Signs Temp Pulse Pulse Resp BP Pulse Ox 05/23/19 19:38 36.6 C 82 21 135/84 98 05/23/19 15:11 36.7 C 91 H 17 130/85 96 05/23/19 15:01 100 H 05/23/19 14:01 99 H 18 96 05/23/19 11:07 36.6 C 89 19 143/82 H 95 Laboratory Results Laboratory Results - last 24 hr 05/23/19 05/23/19 07:11 07:11 PT 12.3 H INR 1.2 H APTT 59.8 H* PTT Ratio 2.2 Potassium 3.7 Diagnostic Findings PORT CHEST X-RAY IMPRESSION: 1. Hiatal hernia. 2. Atelectasis left base. The above report was generated using voice recognition software. It may contain grammatical, syntax or spelling errors. Electronically signed by: Daniel Mandel M.D. 05/23/2019 9:10 AM (1) Syncope Syncope type: unspecified Qualified Code(s): R55 - Syncope and collapse (2) Fracture of prosthetic hip Encounter type: initial encounter Qualified Code(s): T84.019A - Broken internal joint prosthesis, unspecified site, initial encounter; Z96.649 - Presence of unspecified artificial hip joint
[2019-05-24] MEDS: cefTRIAXone SODIUM 1,000 MG in DEXTROSE 5% 50 ML IV SCH (02:07)
[2019-05-24] MEDS: Heparin Adult STANDARD Wt-Based Dextrose 5% 25,000 units/500 mL IV SCH (05:14)
[2019-05-24 06:55] LABS: Hematocrit (blood only) 32.7 % (42-52); Mean Corpuscular Hgb Conc 33.6 g/dL (32-36); Mean Corpuscular Volume 92.4 fL (80-100); Mean Platelet Volume 9.4 fL (7.4-10.4); Platelet Count 211 K/uL (130-400); RDW Coefficient of Variation 13.9 % (11.5-14.5); RDW Standard Deviation 47.4 fL (36.4-46.3); Red Blood Count 3.54 M/uL (4.7-6.1); White Blood Count 9.45 K/uL (4.8-10.8)
[2019-05-24 07:19] LABS: INR 1.3 (0.9-1.1); Partial Thromboplastin Ratio 2.1; Prothrombin Time 13.1 Seconds (9.0-12.0)
[2019-05-24 07:26] LABS: BUN Creatinine Ratio 16.3 (10-20); Calcium 8.7 mg/dl (8.5-10.1); Creatinine Clr Calc Pharmacy 64.8 ml/min; Est GFR (African American) 91.6; Est GFR (Non-African American) 79.1; Potassium 3.6 mmol/L (3.5-5.1)
[2019-05-24 08:06] LABS: Partial Thromboplastin Time 56.1 Seconds (21.0-31.0)
[2019-05-24] MEDS ORDERED: METOPROLOL SUCC 25MG EXT REL TAB PO SCH (09:00)
[2019-05-24] MEDS: DOXYCYCLINE HYCLATE 100 MG CAP PO SCH (09:07)
--- NOTE | 2019-05-24 14:20 | Cardiology Progress Note ---
Date of Service May 24, 2019 Assessment & Plan (1) Atrial fibrillation with rapid ventricular response: Telemetry reveals atrial fibrillation for the most part in the range of 80 to 90 bpm, but does increase to 150 mg when out of bed. Metoprolol succinate have been increased to 75 mg with first dose this morning . We will continue this dose for now given the potential for adverse medication effects given the patient's age and comorbidities. Regarding stroke prophylaxis, continue transition from heparin to Coumadin. Subjective Chief complaint: Follow-up elevated heart rate Subjective: Patient without complaint, resting watching the news. He is conversant. No acute complaint. No respiratory distress at rest. Physical Exam Constitutional: no acute distress Respiratory: Auscultation: + diminished lung sounds (Mildly decreased breath sounds the bases); no crackles, no rales, no rhonchi and no wheezes Cardiovascular: Rate/Rhythm: + tachycardic and + irregularly irregular Vessels: no JVD Extremities: no edema Lower extremity sequential pneumatic compression devices in place Neurologic: Conversant, follows commands, no focal deficits Results & Data Vital Signs (Past 12 Hours) Vital Signs Temp Pulse Pulse Resp BP BP Pulse Ox 05/24/19 11:04 36.6 C 97 H 19 122/78 97 05/24/19 07:27 36.5 C 98 H 18 135/85 96 05/24/19 07:23 77 05/24/19 03:34 36.8 C 100 H 16 144/92 H 95 Laboratory Results Coagulation 05/24/19 Range/Units 06:35 PT 13.1 H (9.0-12.0) Seconds APTT 56.1 H* (21.0-31.0) Seconds CBC 05/24/19 Range/Units 06:35 WBC 9.45 (4.8-10.8) K/uL RBC 3.54 L (4.7-6.1) M/uL Hgb 11.0 L (14.0-18.0) g/dL Hct 32.7 L (42-52) % Plt Count 211 (130-400) K/uL Comprehensive Metabolic Panel 05/24/19 Range/Units 06:35 Sodium 136 (136-145) mmol/L Potassium 3.6 (3.5-5.1) mmol/L Chloride 101 (98-107) mmol/L Carbon Dioxide 29 (21-32) mmol/L BUN 14 (7-18) mg/dl Creatinine 0.86 (0.6-1.4) mg/dl Glucose 107 H (70-99) mg/dl Calcium 8.7 (8.5-10.1) mg/dl Intake and Output 05/23/19 05/24/19 05/24/19 22:59 06:59 14:59 Intake Total 301.117 / 1194.234 284.6 / 1194.234 471.666 / 471.666 Output Total 125 / 125 Balance 301.117 / 994.234 284.6 / 994.234 346.666 / 346.666 Intake: IV 241.117 / 739.234 284.6 / 739.234 76.666 / 76.666 HEPARIN SODIUM/DEXTROSE 25,000 241.117 / 689.234 234.6 / 689.234 76.666 / 76.666 units In 500 ml @ 1,150 UNITS/ HR 23 mls/hr IV .[id number] MARV Rx #:[id number] Rocephin 1,000 mg In D5w 50 ml 50 / 50 @ 100 mls/hr IV Q24H MARV Rx#: [id number] Oral 60 / 455 395 / 395 Output: Urine 125 / 125 Other: # Unmeasured Voids 1 1 2 Weight 74.1 kg Diagnostic Findings INR today 05/24/2019 at 1.3.
[2019-05-24] MEDS: WARFARIN SOD 5 MG TAB PO SCH (16:20)
--- NOTE | 2019-05-24 18:31 | Hospitalist Progress Note ---
Date of Service May 24, 2019 Assessment & Plan (1) Pneumonia: Presented to ED with shortness of breath. CTA of chest was negative for pulmonary embolism, but demonstrated infiltrate versus atelectasis at left base. Started on antibiotic coverage with doxycycline and ceftriaxone. Has completed 7 days of antibiotic coverage. Afebrile. (2) Pulmonary atelectasis: Chest x-ray 05/23 showed worsening atelectasis left base. Incentive spirometry. Mobilize. (3) Syncope: Syncope versus near syncope while coming to the ED for evaluation of his dyspnea. Head CT negative. Cardiac rhythm was normal sinus rhythm at time of admission, but subsequently developed atrial fibrillation as discussed below. (4) Fracture of prosthetic hip: Patient fell while coming to the ED for evaluation of his shortness of breath. Plain films and CT of right hip demonstrated fracture of the greater trochanter of the right hip with previous total hip arthroplasty. Orthopedics consulted. No need for surgical intervention. Increase activity as tolerated. Weight bearing as tolerated, but no abduction of hip for 6 weeks. (5) Coronary artery disease: History coronary artery disease, status post CABG. Elevated troponins associated with rapid atrial fibrillation. Continue aspirin, beta rain, and statin. (6) Atrial fibrillation with rapid ventricular response: Developed atrial fibrillation with rapid ventricular response on 05/19/2019. Atenolol had been held for bradycardia. Serum potassium was as low as 3.4 and corrected. Serum magnesium was normal. TSH was normal. Echocardiogram performed on 05/18/2019 showed normal left atrial and right atrial dimensions. Seen in consultation by Cardiology. Metoprolol recommended for rate control. Ventricular rate still fast at times and metoprolol dose increased 05/23. Patient feels strongly that he would like to resume atenolol since he has been on it for years and did well with it. Anticoagulation with IV heparin --> warfarin. (7) Hypertension: Continue metoprolol. Follow and titrate therapy. (8) DVT prophylaxis: SCDs ordered at the time of admission. Subsequently started on IV heparin and warfarin for atrial fibrillation as discussed above. (9) Discharge planning issues: Anticipated need for skilled care. Case Management consulted. Family Medicine follow-up with Dr. Funk. Subjective Recheck for multiple problems. Patient seen in their room around 16:00. Remains in AF. Rate still fast at times. Patient feels strongly that he would like to resume atenolol since he has been on it for years and did well with it. No chest pain or palpitations. No cough or SOB. Right hip pain improved. Ambulating with walker, albeit slowly with assistance. Review of Systems: Constitutional- no fever. Cardiac- as noted above. Pulmonary- as noted above. GI- no nausea, vomiting, diarrhea, melena, hematochezia. - chronic urinary incontinence, using condom cath. Otherwise, as noted above. Physical Exam Constitutional: no acute distress Respiratory: no respiratory distress Auscultation: + diminished lung sounds (left base) and + wheezes (mild, diffuse) Cardiovascular: Rate/Rhythm: + irregularly irregular Heart Sounds: no gallop, no murmur and no cardiac rub Vessels: + JVD Extremities: no calf tenderness and no edema Gastrointestinal (Abdomen): normal bowel sounds, soft, nontender, no hepatos plenomegaly Skin: no rashes, warm and dry Psychiatric: Orientation: alert and oriented x 3 Results & Data Vital Signs (Past 12 Hours) Vital Signs Temp Pulse Pulse Resp BP BP Pulse Ox 05/24/19 15:32 36.8 C 110 H 20 139/82 94 05/24/19 13:47 97 H 05/24/19 11:04 36.6 C 97 H 19 122/78 97 05/24/19 07:27 36.5 C 98 H 18 135/85 96 05/24/19 07:23 77 Laboratory Results Laboratory Results - last 24 hr 05/24/19 05/24/19 05/24/19 06:35 06:35 06:35 WBC 9.45 RBC 3.54 L Hgb 11.0 L Hct 32.7 L MCV 92.4 MCH 31.1 MCHC 33.6 RDW Std Deviation 47.4 H RDW Coeff of Flor 13.9 Plt Count 211 MPV 9.4 PT 13.1 H INR 1.3 H APTT 56.1 H* PTT Ratio 2.1 Sodium 136 Potassium 3.6 Chloride 101 Carbon Dioxide 29 Anion Gap 6.0 BUN 14 Creatinine 0.86 Est Cr Clr Drug Dosing 64.8 Est GFR ( Amer) 91.6 Est GFR (Non-Af Amer) 79.1 BUN/Creatinine Ratio 16.3 Glucose 107 H Calcium 8.7 (1) Syncope Syncope type: unspecified Qualified Code(s): R55 - Syncope and collapse (2) Fracture of prosthetic hip Encounter type: initial encounter Qualified Code(s): T84.019A - Broken internal joint prosthesis, unspecified site, initial encounter; Z96.649 - Presence of unspecified artificial hip joint
[2019-05-24] MEDS ORDERED: POTASSIUM CHLORIDE 20 MEQ TABCR PO ONE (18:32)
[2019-05-24] MEDS ORDERED: ATENOLOL 25 MG TABLET PO ONE (18:32)
[2019-05-24] MEDS: ATORVASTATIN 20 MG TAB PO SCH (20:23)
[2019-05-25] MEDS: Heparin Adult STANDARD Wt-Based Dextrose 5% 25,000 units/500 mL IV SCH ×2 (03:37→17:51)
[2019-05-25 06:07] LABS: INR 1.4 (0.9-1.1); Partial Thromboplastin Ratio 2.5; Prothrombin Time 14.4 Seconds (9.0-12.0)
[2019-05-25 06:14] LABS: Partial Thromboplastin Time 67.2 Seconds (21.0-31.0)
[2019-05-25] MEDS: ATENOLOL 50 MG TABLET PO SCH (09:25)
--- NOTE | 2019-05-25 12:44 | Cardiology Progress Note ---
Date of Service May 25, 2019 Assessment & Plan (1) Atrial fibrillation with rapid ventricular response: Patient seen. He was out of bed, in a chair, enjoying his noontime meal. Atrial fibrillation with average rate in the 80 bpm range noted on telemetry. The patient has been on atenolol 50 mg for years. He had expressed strong preference to Dr. Cox yesterday to remain on atenolol rather than metoprolol, and therefore he was transitioned back to his chronic atenolol dose. Continue transition from heparin to Coumadin for stroke prophylaxis. INR 1.4 today. Results & Data Vital Signs (Past 12 Hours) Vital Signs Temp Pulse Resp BP BP Pulse Ox 05/25/19 08:25 36.9 C 85 19 116/65 94 05/25/19 03:32 36.7 C 85 20 142/83 H 95
[2019-05-25 12:49] LABS: Partial Thromboplastin Time 52.9 Seconds (21.0-31.0)
[2019-05-25] MEDS: WARFARIN SOD 5 MG TAB PO SCH (15:56)
--- NOTE | 2019-05-25 16:27 | Hospitalist Progress Note ---
Date of Service May 25, 2019 Assessment & Plan (1) Pneumonia: Presented to ED with shortness of breath. CTA of chest was negative for pulmonary embolism, but demonstrated infiltrate versus atelectasis at left base. Started on antibiotic coverage with doxycycline and ceftriaxone. Has completed 7 days of antibiotic coverage. Afebrile. (2) Pulmonary atelectasis: Chest x-ray 05/23 showed worsening atelectasis left base. Incentive spirometry. Mobilize. (3) Syncope: Syncope versus near syncope while coming to the ED for evaluation of his dyspnea. Head CT negative. Cardiac rhythm was normal sinus rhythm at time of admission, but subsequently developed atrial fibrillation as discussed below. (4) Fracture of prosthetic hip: Patient fell while coming to the ED for evaluation of his shortness of breath. Plain films and CT of right hip demonstrated fracture of the greater trochanter of the right hip with previous total hip arthroplasty. Orthopedics consulted. No need for surgical intervention. Increase activity as tolerated. Weight bearing as tolerated, but no abduction of hip for 6 weeks. (5) Coronary artery disease: History coronary artery disease, status post CABG. Elevated troponins associated with rapid atrial fibrillation. Continue aspirin, beta rain, and statin. (6) Atrial fibrillation with rapid ventricular response: Developed atrial fibrillation with rapid ventricular response on 05/19/2019. Atenolol had been held for bradycardia. Serum potassium was as low as 3.4 and corrected. Serum magnesium was normal. TSH was normal. Echocardiogram performed on 05/18/2019 showed normal left atrial and right atrial dimensions. Seen in consultation by Cardiology. Metoprolol recommended for rate control. Patient felt very strongly that he would like to resume atenolol since he has been on it for years and did well with it, so back on atenolol 50 mg daily. Anticoagulation with IV heparin --> warfarin. (7) Hypertension: Continue atenolol and amlodipine. Follow and titrate therapy. (8) DVT prophylaxis: SCDs ordered at the time of admission. Subsequently started on IV heparin and warfarin for atrial fibrillation as discussed above. (9) Discharge planning issues: Anticipated need for skilled care. Case Management consulted. Family Medicine follow-up with Dr. Funk. Subjective Recheck for multiple problems. Patient seen in their room around 09:40. Remains in AF, rate better. No chest pain or palpitations. No cough or SOB. Right hip pain a bit worse today; pt feels that he was overly ambitious ambulating yesterday. Review of Systems: Constitutional- no fever. Cardiac- as noted above. Pulmonary- as noted above. GI- no nausea, vomiting, diarrhea, melena, hematochezia. - chronic urinary incontinence. Otherwise, as noted above. Physical Exam Constitutional: no acute distress Respiratory: no respiratory distress Auscultation: + diminished lung sounds (left base) and + wheezes (mild, diffuse) Cardiovascular: Rate/Rhythm: + irregularly irregular Heart Sounds: no gallop, no murmur and no cardiac rub Vessels: + JVD Extremities: no calf tenderness and no edema Gastrointestinal (Abdomen): normal bowel sounds, soft, nontender, no hepatosplenomegaly Skin: no rashes, warm and dry Psychiatric: Orientation: alert and oriented x 3 Results & Data Vital Signs (Past 12 Hours) Vital Signs Temp Pulse Resp BP Pulse Ox 05/25/19 15:04 36.7 C 76 18 133/76 95 05/25/19 13:00 36.6 C 95 H 20 137/81 96 05/25/19 08:25 36.9 C 85 19 116/65 94 Laboratory Results Laboratory Results - last 24 hr 05/25/19 05/25/19 05/25/19 05:16 05:16 11:55 PT 14.4 H INR 1.4 H APTT 67.2 H* 52.9 H* PTT Ratio 2.5 2.0 Potassium 4.1 (1) Syncope Syncope type: unspecified Qualified Code(s): R55 - Syncope and collapse (2) Fracture of prosthetic hip Encounter type: initial encounter Qualified Code(s): T84.019A - Broken internal joint prosthesis, unspecified site, initial encounter; Z96.649 - Presence of unspecified artificial hip joint
[2019-05-25] MEDS: ACETAMINOPHEN 325 MG TAB PO PRN (16:55)
[2019-05-25] MEDS: ATORVASTATIN 20 MG TAB PO SCH (21:04)
[2019-05-26 07:07] LABS: Hematocrit (blood only) 32.3 % (42-52); Hemoglobin 10.8 g/dL (14.0-18.0); Mean Corpuscular Hgb Conc 33.4 g/dL (32-36); Mean Corpuscular Volume 93.6 fL (80-100); Platelet Count 261 K/uL (130-400); RDW Coefficient of Variation 14.4 % (11.5-14.5); Red Blood Count 3.45 M/uL (4.7-6.1); White Blood Count 11.41 K/uL (4.8-10.8)
[2019-05-26 07:35] LABS: INR 1.7 (0.9-1.1); Partial Thromboplastin Ratio 2.5
[2019-05-26] MEDS: ATENOLOL 50 MG TABLET PO SCH (07:38)
[2019-05-26 07:51] LABS: Partial Thromboplastin Time 68.1 Seconds (21.0-31.0)
[2019-05-26] MEDS ORDERED: AMLODIPINE BESYLATE 5 MG TAB PO SCH (09:00)
--- NOTE | 2019-05-26 10:50 | Hospitalist Progress Note ---
Date of Service May 26, 2019 Assessment & Plan (1) Pneumonia: Presented to ED with shortness of breath. CTA of chest was negative for pulmonary embolism, but demonstrated infiltrate versus atelectasis at left base. Started on antibiotic coverage with doxycycline and ceftriaxone. Completed 7 days of antibiotic coverage. Afebrile. (2) Pulmonary atelectasis: Chest x-ray 05/23 showed worsening atelectasis left base. Incentive spirometry. Mobilize. (3) Syncope: Syncope versus near syncope while coming to the ED for evaluation of his dyspnea. Head CT negative. Cardiac rhythm was normal sinus rhythm at time of admission, but subsequently developed atrial fibrillation as discussed below. (4) Fracture of prosthetic hip: Patient fell while coming to the ED for evaluation of his shortness of breath. Plain films and CT of right hip demonstrated fracture of the greater trochanter of the right hip with previous total hip arthroplasty. Orthopedics consulted. No need for surgical intervention. Increase activity as tolerated. Weight bearing as tolerated, but no abduction of hip for 6 weeks. (5) Coronary artery disease: History coronary artery disease, status post CABG. Elevated troponins associated with rapid atrial fibrillation. Continue aspirin, beta rain, and statin. (6) Atrial fibrillation with rapid ventricular response: Developed atrial fibrillation with rapid ventricular response on 05/19/2019. Atenolol had been held for bradycardia. Serum potassium was as low as 3.4 and corrected. Serum magnesium was normal. TSH was normal. Echocardiogram performed on 05/18/2019 showed normal left atrial and right atrial dimensions. Seen in consultation by Cardiology. Metoprolol recommended for rate control. Patient felt very strongly that he would like to resume atenolol since he has been on it for years and did well with it, so back on atenolol 50 mg daily. Anticoagulation with IV heparin --> warfarin. INR day of discharge 1.7. Warfarin 5 mg 7/8 before discharge, then 5 mg daily. Titrate INR 2-3. (7) Hypertension: Continue atenolol and amlodipine. Follow and titrate therapy. (8) DVT prophylaxis: SCDs ordered at the time of admission. Subsequently started on IV heparin and warfarin for atrial fibrillation as discussed above. (9) Discharge planning issues: Needs skilled care. Case Management consulted. Arrangements being made for transfer to [facility]. Family Medicine follow-up with Dr. Funk after DC from [facility] [place]. Ortho follow-up with Dr. Fuentes in about 4 weeks. Cardiology follow-up with Dr. Fine. Will need to get established with [facility] when discharged from [facility] [place]. Subjective Recheck for multiple problems. Patient seen in their room around 09:30. Remains in AF, rate usually in the 80s - 90s. No chest pain or palpitations. Performing incentive spirometry. No cough or SOB. Right hip pain better. Review of Systems: Constitutional- no fever. Cardiac- as noted above. Pulmonary- as noted above. GI- no nausea, vomiting, diarrhea, melena, hematochezia. - chronic urinary incontinence. Otherwise, as noted above. Physical Exam Constitutional: no acute distress Respiratory: no respiratory distress Auscultation: + diminished lung sounds (left base) and + wheezes (mild, diffuse) Cardiovascular: Rate/Rhythm: + irregularly irregular Heart Sounds: no gallop, no murmur and no cardiac rub Vessels: + JVD Extremities: no calf tenderness and no edema Gastrointestinal (Abdomen): normal bowel sounds, soft, nontender, no hepatosplenomegaly Skin: no rashes, warm and dry Psychiatric: Orientation: alert and oriented x 3 Results & Data Vital Signs (Past 12 Hours) Vital Signs Temp Pulse Resp BP Pulse Ox 05/26/19 07:24 36.9 C 103 H 20 169/89 H 95 05/26/19 04:00 36.8 C 87 17 140/76 95 05/25/19 23:38 36.7 C 88 18 150/81 H 96 Laboratory Results Laboratory Results - last 24 hr 05/25/19 05/26/19 05/26/19 11:55 06:41 06:41 WBC 11.41 H RBC 3.45 L Hgb 10.8 L Hct 32.3 L MCV 93.6 MCH 31.3 MCHC 33.4 RDW Std Deviation 49.0 H RDW Coeff of Flor 14.4 Plt Count 261 MPV 9.0 PT 17.0 H INR 1.7 H APTT 52.9 H* 68.1 H* PTT Ratio 2.0 2.5 (1) Syncope Syncope type: unspecified Qualified Code(s): R55 - Syncope and collapse (2) Fracture of prosthetic hip Encounter type: initial encounter Qualified Code(s): T84.019A - Broken internal joint prosthesis, unspecified site, initial encounter; Z96.649 - Presence of unspecified artificial hip joint
--- NOTE | 2019-05-26 11:06 | Discharge Summary ---
Date of Service Date of Admission: 05/17/19 Date of Discharge: 05/26/19 Admission HPI Per Admitting Provider This 84-year-old male with past medical history significant for CAD, status post CABG, hypertension, hyperlipidemia, urge incontinence who lives with his son, walks without any help, was having shortness of breath since about a week, was recently treated for bronchitis with Z-NIA. Denies any fevers or chills. He is having frequent urination since last 2-3 weeks, was trying to get appointment with urology. He also having lower extremity edema last 3 weeks. Because of shortness of breath came to the ER. At ER entrance he felt dizzy, lightheaded and fell down and brought into the hospital where he was found to have right femur greater trochanter fracture. Denies any pain, currently resting comfortably and hemodynamically stable. Denies any chest pain. Denies any cough, no headache, no blurred vision, no earache, has some runny nose, no sore throat, no difficulty swallowing. Appetite is okay. No abdominal pain. Normal bowel and bladder. No blood in the stools, no black stools. No rash. No difficulty swallowing. Admission Exam Per Admitting Provider GENERAL: The patient is of moderate build, not in acute distress. VITAL SIGNS: Temperature 38, pulse 65, respiratory rate 29, blood pressure 156/76, oxygen 92% on room air. HEENT: No pallor, no icterus. Pupils equal, round, reactive to light. NECK: No JVD, no neck masses, no carotid bruit. CARDIOVASCULAR: S1, S2 heard, regular rate and rhythm, no murmur, no gallop. RESPIRATORY SYSTEM: Normal AP diameter. No rales. No wheezing, no crackles. ABDOMEN: Soft, bowel sounds present. Nontender. No distention. CENTRAL NERVOUS SYSTEM: Cranial nerves II-XII grossly intact, nonfocal. EXTREMITIES: Bilateral lower extremity +1 edema present. Right lower extremity is somewhat shortened and externally rotated. Principal Diagnosis pneumonia, community acquired OTHER NEW / ACUTE DIAGNOSES: right hip fracture, greater trochanter atrial fibrillation pulmonary atelectasis Discharge Data Allergies Allergy/AdvReac Type Severity Reaction Status Date / Time No Known Allergies Allergy . Verified 05/17/19 22:39 Consultations 05/17/19 22:27 ED Decision to Admit Stat 05/18/19 01:07 Consult Case Management - Discharge Planning Routine 05/18/19 08:00 Consult Orthopedic Surgery Routine 05/19/19 08:00 Consult Cardiology Routine Ordered Studies 05/17/19 19:56 CT head/brain wo con Stat US venous doppler LE BI Stat 05/17/19 20:39 CT hip RT wo con Stat 05/17/19 21:00 CT angio chest PE protocol Stat Hospital Course (1) Pneumonia: Presented to ED with shortness of breath. CTA of chest was negative for pulmonary embolism, but demonstrated infiltrate versus atelectasis at left base. Received antibiotic coverage with doxycycline and ceftriaxone. Blood cultures negative. Completed 7 days of antibiotic coverage. Afebrile. (2) Pulmonary atelectasis: Chest x-ray 05/23 showed worsening atelectasis left base. Incentive spirometry. Mobilize. Oxygenating well on RA. (3) Syncope: Syncope versus near syncope while coming to the ED for evaluation of his dyspnea. Head CT negative. Cardiac rhythm was normal sinus rhythm at time of admission, but subsequently developed atrial fibrillation as discussed below. (4) Fracture of prosthetic hip: Patient fell while coming to the ED for evaluation of his shortness of breath. Plain films and CT of right hip demonstrated fracture of the greater trochanter of the right hip with previous total hip arthroplasty. Orthopedics consulted. No need for surgical intervention. Increase activity as tolerated. Weight bearing as tolerated, but no abduction of hip for 6 weeks. (5) Coronary artery disease: History coronary artery disease, status post CABG. Elevated troponins associated with rapid atrial fibrillation. Continue aspirin, beta rain, and statin. (6) Atrial fibrillation with rapid ventricular response: Developed atrial fibrillation with rapid ventricular response on 05/19/2019. Atenolol had been held for bradycardia. Serum potassium was as low as 3.4 and corrected. Serum magnesium was normal. TSH was normal. Echocardiogram performed on 05/18/2019 showed normal left atrial and right atrial dimensions. Seen in consultation by Cardiology. Metoprolol recommended for rate control. Patient felt very strongly that he would like to resume atenolol since he has been on it for years and did well with it, so back on atenolol 50 mg daily. Anticoagulation with IV heparin --> warfarin. INR day of discharge 1.7. Warfarin 5 mg 7/8 before discharge, then 5 mg daily. Titrate INR 2-3. (7) Hypertension: Continue atenolol and amlodipine. Follow and titrate therapy. (8) DVT prophylaxis: SCDs ordered at the time of admission. Subsequently started on IV heparin and warfarin for atrial fibrillation as discussed above. (9) Discharge planning issues: Needs skilled care. Case Management consulted. Arrangements being made for transfer to [facility]. Family Medicine follow-up with Dr. Funk after DC from [facility]. Ortho follow-up with Dr. Fuentes in about 4 weeks. Cardiology follow-up with Dr. Fine. Will need to get established with [facility] when discharged from [facility]. Total Time Total Time Spent Total Time Spent (In Minutes): 50 Discharge Plan Discharge Items Patient Disposition: Transfer Detention Fac Reason For Visit: pneumonia, right hip fracture Discharge Diagnosis: pneumonia right hip fracture- greater trochanter atrial fibrillation, new onset Condition: Good Discharge Goals: Decrease discomfort and Improve function Activity: As commented below Activity Comment: ambulate with walker and assistance; no abduction right hip for 6 weeks Non-emergency contact: Primary Care Provider, Hospitalist and Ship Ceiler Call non-emergency contact if: you have any medication questions, your symptoms worsen and you have a fever Follow-up/Referrals: Bernard Fine DO [Ship Ceiler] - Arnold Fuentes MD [Surgeon] - (Please arrange for follow-up appointment in about 4 weeks.) Mateo Funk MD [Primary Care Provider] - (Please arrange for appointment after discharge from [facility].) Diet: Heart Healthy Add Provider Instructions: Incentive spirometry q 2 hours while awake. Warfarin new med for AF. INR goal 2-3. Please check INR daily until stable, then warfarin management per your institution's protocol. Received dose of warfarin 5 mg on 05/26 @ [facility] before transfer. Please check serum potassium a few days after admission. Please make arrangements for warfarin follow-up with [facility] when discharged from your facility. Thank you for receiving this patient in transfer. Please call if you have any questions. Mateo Cox Prescriptions: New acetaminophen 500 mg tablet 1,000 mg PO Q8H PRN (Reason: fever or pain) Qty: 60 RF: 0 warfarin 5 mg tablet 5 mg PO DAILY Qty: 30 RF: 0 Continued atorvastatin 20 mg tablet 20 mg PO QPM RF: 0 amlodipine 5 mg tablet 5 mg PO QAM RF: 0 aspirin 81 mg Tablet,Delayed Release (Dr/Ec) 81 mg PO QAM RF: 0 atenolol 50 mg tablet 50 mg PO QAM RF: 0 Discontinued meloxicam 7.5 mg tablet 7.5 mg PO QAM RF: 0 Stand-Alone Forms: [facility] Admission Data Admit Date/Time: 05/17/19 23:21 Attending Provider: Mateo Cox Admit Provider: [place] Primary Care Provider: Mateo Funk Other Providers: [place] ; Arnold Fuentes ; Mat Hess ; Arnold Leary ; Epi Pagan ; Bernard Fine ; Ken Puente ; Daniel Villareal ; Daisy Hagan ; Tere Jacob ; Durga Owen Service: Telemetry
[2019-05-26] MEDS ORDERED: WARFARIN SOD 5 MG TAB PO ONE (11:30)
== END 2019-05-26 13:12 | DRG 193 ==
LOC: ED 19:34 → SUATTDRO 23:21 → 2N 23:21 → 2S 05-19 06:06

== ENCOUNTER 2019-06-16 11:37 | Observation (INO) ==
[2019-06-16 12:46] LABS: Basophils # (auto) 0.02 K/uL (0-0.2); Basophils % (auto) 0.2 %; Eosinophils % (auto) 1.2 %; Hematocrit (blood only) 37.8 % (42-52); Hemoglobin 12.4 g/dL (14.0-18.0); Immature Granulocytes # (auto) 0.02 K/uL (0.00-0.02); Immature Granulocytes % (auto) 0.2 %; Lymphocytes # (auto) 0.98 K/uL (1.2-3.4); Lymphocytes % (auto) 12.2 %; Mean Corpuscular Hgb Conc 32.8 g/dL (32-36); Mean Corpuscular Volume 92.9 fL (80-100); Mean Platelet Volume 8.9 fL (7.4-10.4); Monocytes % (auto) 8.7 %; Neutrophils # (auto) 6.23 K/uL (1.4-6.5); Neutrophils % (auto) 77.5 %; Platelet Count 190 K/uL (130-400); RDW Standard Deviation 51.3 fL (36.4-46.3); Red Blood Count 4.07 M/uL (4.7-6.1); White Blood Count 8.05 K/uL (4.8-10.8)
[2019-06-16 12:56] LABS: INR 1.3 (0.9-1.1); Partial Thromboplastin Time 26.8 Seconds (21.0-31.0)
[2019-06-16 13:02] LABS: BUN Creatinine Ratio 16.5 (10-20); Blood Urea Nitrogen 19 mg/dl (7-18); Carbon Dioxide 28 mmol/L (21-32); Chloride 105 mmol/L (98-107); Est GFR (African American) 66.2; Est GFR (Non-African American) 57.1; Glucose 135 mg/dl (70-99); Sodium 139 mmol/L (136-145)
[2019-06-16 13:08] LABS: NT Pro B Type Natriuretic Pept 2738 pg/ml (0-1800); Troponin I < 0.015 ng/ml (0-0.045)
--- NOTE | 2019-06-16 13:15 | XRay Report ---
XR hip RT 2-3V w pelvis CLINICAL HISTORY: hip pain, recent fx COMPARISON: 05/17/2019 DISCUSSION: Total right hip arthroplasty. Good contact between the metallic prosthetic and underlying bone. Avulsion of the greater trochanter which has been described previously. No acute or superimposed process. There is no evidence for soft tissue swelling. IMPRESSION: Negative study post total right hip arthroplasty. Avulsion of the greater trochanter whic h has been present previously The above report was generated using voice recognition software. It may contain grammatical, syntax or spelling errors. Electronically signed by: Daniel Mandel M.D. 06/16/2019 1:14 PM
--- NOTE | 2019-06-16 14:09 | XRay Report ---
XR chest 1V portable CLINICAL HISTORY: elevated BNP, le edema pain. Edema. COMPARISON STUDY: 05/23/2019 FINDINGS: Improved atelectatic changes left base. Mild stable cardiomegaly. Median sternotomy. Right lung is clear. IMPRESSION: Mild improvement of the atelectatic changes left base. The above report was generated using voice recognition software. It may contain grammatical, syntax or spelling errors. Electronically signed by: Daniel Mandel M.D. 06/16/2019 2:07 PM
--- NOTE | 2019-06-16 14:44 | Ultrasound Report ---
BILATERAL LOWER EXTREMITY VENOUS DOPPLER HISTORY: Lower extremity edema. COMPARISON STUDY: None. FINDINGS: There is normal compressibility, flow, and augmentation within the bilateral lower extremit y deep venous systems. IMPRESSION: No DVT within the right or left lower extremity. Electronically signed by: Volodymyr Lucas M.D. 06/16/2019 2:42 PM
[2019-06-16] MEDS ORDERED: FUROSEMIDE 20 MG in SYRINGE 0 ML IV ONE (15:12)
[2019-06-16] MEDS ORDERED: ACETAMINOPHEN 500 MG TAB PO STA (15:12)
[2019-06-16] MEDS ORDERED: FUROSEMIDE 40 MG/4 ML VIAL IV ONE (15:44)
[2019-06-16 16:20] LABS: Appearance Urine Cloudy (Clear); Bacteria Urine Automated Negative (Negative); Bilirubin Urine Negative (Negative); Blood Urine Negative (Negative); Cast Urine Automated 0 /lpf (0-5); Color Urine Yellow; Epithelial Cell Urine Auto 0-5 /lpf (0-5); Glucose Urine UA Negative (Negative); Ketones Urine Negative (Negative); Leukocyte Esterase Urine Negative (Negative); Nitrite Urine Negative (Negative); Protein Urine Negative (Negative); RBC Urine Automated 0-4 /hpf (0-4); Specific Gravity Urine 1.014 (1.000-1.030); Urobilinogen Urine Negative (Negative); WBC Urine Automated 0 /hpf (0-5)
--- NOTE | 2019-06-16 16:26 | CT Scan Report ---
CT hip RT wo con CT DOSE: 248.45 mGy.cm CLINICAL HISTORY: Severe right hip pain. Inability to bear weight. TECHNIQUE: Helical images were acquired in the transverse plane. Sagittal and coronal reformatted renetta ges were reviewed. A dose lowering technique was utilized adhering to the principles of ALARA. COMPARISON STUDY: May 17, 2019 FINDINGS: There are postsurgical changes of a total right hip arthroplasty. There is beam hardening metallic artifact. There is no evidence for dislocation. The 2 acetabular screws extend through the bone. Anterior screw enters the iliacus muscle. The team leader ior screw enters the gluteus minimus muscle. A fracture of the greater trochanter extending to the proximal femoral shaft is again visualized. Cor relate callus formation/intramuscular ossification is evident. There are vascular calcifications present. IMPRESSION: 1. Total right hip arthroplasty 2. No change in the orientation of the greater trochanteric fracture which extends to the level of th e arthroplasty and proximal femoral shaft 3. Early callus for patients/muscular ossification is evident 4. No evidence of dislocation 5. The 2 acetabular screws are again noted to extend to the soft tissues, anteriorly into the iliacus muscle and posteriorly into the gluteus medius muscle Electronically signed by: Hill Howard M.D. 06/16/2019 4:24 PM
--- NOTE | 2019-06-16 17:40 | Emergency Department Note ---
Entered by Nicole Zapien acting as a scribe for Dionna Webster DO History of Present Illness General Chief complaint: Hip Pain Stated complaint: RIGHT HIP PAIN Time Seen by Provider: 06/16/19 12:35 Source: patient and friends History of Present Illness Onset (ago): hour(s) (this morning) Location: hip and right Radiation: non-radiation Severity: similar to prior episodes Pain Consistency: + other (persistent ) Maximum Pain Intensity: 8 Associated symptoms: + other (negative back pain; negative leg pain; negative numbness or tingling; positive urinating frequently; negative pain or pressure with urination; positive worsening leg swelling); no chest pain and no shortness of breath The patient is a 84 year old male who with a PMHx of CAD, HTN, triple bypass, and AFib with RVR presents to the Emergency Room with complaints of persistent right hip pain that began this morning. Pt just discharged from rehab after several weeks on Sunday. Pt states he was placed in rehab following fall and fracture near right hip which was previously replaced. No new trauma. No pain when he went home on Sunday or over the weekend. Pt states he has aides helping him at home but he lives alone. The patient states that he woke up with this pain, and states that he did not go to bed with these symptoms. The patient denies back pain, leg pain, numbness or tingling, chest pain, and shortness of breath. He states that he has been urinating frequently recently, but denies pain or pressure with urination. The patient states that he has had leg swelling since his hairline fracture of his right hip, but states that this has worsened recently. Per the patient's friend at bedside, the patient has not been taking his medications for 3 days, including the Coumadin that he began recently. Home Medications Home Medications Medication Instructions Recorded Confirmed Type amlodipine 5 mg PO QAM 04/09/19 06/16/19 History aspirin 81 mg PO QAM 04/09/19 06/16/19 History atenolol 50 mg PO QAM 04/09/19 06/16/19 History atorvastatin 20 mg PO QPM 04/09/19 06/16/19 History furosemide 20 mg PO DAILY PRN #14 tab 06/18/19 Rx warfarin 5 mg PO DAILY 30 Days #30 tab 06/18/19 Rx Allergies Allergy/AdvReac Type Severity Reaction Status Date / Time No Known Allergies Allergy . Verified 06/16/19 13:59 Past Med/Surg History Medical History Chronic diastolic CHF (congestive heart failure) (Chronic) Atrial fibrillation (Chronic) Coronary artery disease (Chronic) Hematuria, gross (Resolved 09/23/14) Hypertension (Chronic) Strain of tendon of right rotator cuff (Resolved) Surgical History History of total right hip replacement (Chronic) History of tonsillectomy and adenoidectomy (Chronic) S/P TURP (Chronic) S/P triple vessel bypass (Chronic) Family History Brother Brain cancer Social History Preferred Language: Greenlandic Communication Ability: Effective Visual Impairment: No Limitations Hearing Ability: Normal Channel Marketing Manager Required: No Beliefs That Will Affect Care: None Current Living Situation: Spouse Current Living Situation Comment: caregiver also present at pt's house Other Information That Helps Us Care for You: No Feels Safe at Home: Yes Safety Concerns: Feels Safe At This Time Smoking Status: Former smoker Do You Dip or Chew Tobacco: No Smoking End Date: ~ 24 years old Hx Alcohol Use: Yes Alcohol type: beer Hx Substance Use: No Review of Systems See HPI for pertinent positives & negatives. and A total of 10 systems reviewed and were otherwise negative Physical Exam Vital Signs Vital Signs - 24 hr 06/16/19 11:44 06/16/19 15:00 06/16/19 16:08 Temperature 97.5 F L Temperature Source Oral Sepsis Recent Fever Within 48 Hours No Sepsis New/Unexplained Change in Mental Status No Sepsis Action Taken by Nursing No Action Required Pulse Rate 91 H Pulse Rate [Apical] 83 75 Pulse Rhythm [Apical] Regular Respiratory Rate 20 17 20 Respiratory Effort / Characteristics Non-Labored Spontaneous Non-Labored Respiratory Depth Normal Normal Respiratory Pattern Regular Regular Blood Pressure 138/90 Blood Pressure [Right Arm] 149/87 H 142/99 H Blood Pressure Mean 106 Blood Pressure Mean [Right Arm] 107 113 Pulse Oximetry 98 97 96 Oxygen Delivery Method Room Air Room Air Room Air 06/16/19 17:20 06/16/19 18:13 Temperature Temperature Source Sepsis Recent Fever Within 48 Hours Sepsis New/Unexplained Change in Mental Status Sepsis Action Taken by Nursing Pulse Rate Pulse Rate [Apical] 84 87 Pulse Rhythm [Apical] Respiratory Rate 21 20 Respiratory Effort / Characteristics Non-Labored Non-Labored Respiratory Depth Normal Normal Respiratory Pattern Regular Regular Blood Pressure Blood Pressure [Right Arm] 161/96 H 137/95 Blood Pressure Mean Blood Pressure Mean [Right Arm] 117 109 Pulse Oximetry 97 98 Oxygen Delivery Method Room Air Room Air GENERAL: alert, well appearing, well nourished, no distress, non-toxic EYE EXAM: normal conjunctiva, PERRL and EOM's grossly intact OROPHARYNX: no exudate, no erythema, lips, buccal mucosa, and tongue normal and mucous membranes are moist NECK: supple, no nuchal rigidity, no adenopathy, non-tender LUNGS: Clear to auscultation. Normal chest wall mechanics, no w/r/r HEART: no murmurs, S1 normal and S2 normal ABDOMEN: abdomen soft, non-tender, normo-active bowel sounds, no masses, no rebound or guarding. BACK: Back is symmetrical on inspection and there is no deformity, no midline tenderness, no CVA tenderness. SKIN: no rashes and no bruising, no petechiae UPPER EXTREMITIES: upper extremities are grossly normal. FROM, no evidence of trauma, nml pulses b/l. LOWER EXTREMITIES: 3+ bilateral lower extremity edema. Normal distal pulses. Normal active range of motion of the bilateral lower extremities. No evidence of trauma. No reproducible pain over the right hip. Well healed incision over lateral right hip from prior surgery. NEURO EXAM: Normal sensorium, cranial nerves II-XII grossly intact, normal speech, no gross weakness of arms, no gross weakness of legs. Course 1236: Past medical records reviewed. The patient was evaluated in room B12B. A complete history and physical exam was performed. 1510: I checked on and updated the patient on all results. He states that he is still unable to put weight on his right hip. The patient denies pain at rest but states that when he is standing up he is unable to walk. 1658: I checked on and updated the patient. VS stable. Pt made aware of all results. 5: Pt able to ambulate slightly, still with pain. He and caregiver u ncomfortable with him returning home to an independent status at this time. 1824: The correctional case manager states that the patient is unable to return to the rehab facility tonight and will need to be further evaluated in the hospital before he can be placed. 1833: I discussed the case with Radha VAN who accepts the patient for further evaluation under Dr. Matthew Portillo care. Consultations Consultation #1: I discussed the case with Radha VAN who accepts the patient for further evaluation under Dr. Matthew Portillo care. Time: 18:33 Administered Medications Discontinued Medications Acetaminophen (Tylenol) 1,[address] [facility] Stop: 06/16/19 15:13 Last Admin: 06/16/19 15:47 Dose: 1,000 mg Documented by: [id number] Acetaminophen (Tylenol) 650 mg PO Q4H PRN PRN Reason: pain/fever Stop: 07/16/19 20:21 Last Admin: 06/17/19 19:08 Dose: 650 mg Documented by: [id number] Amlodipine Bes[facility] ([facility]asc) [facility] [place]: 07/17/19 08:59 Last Admin: 06/18/19 08:12 Dose: 5 mg Documented by: [id number] Admin: 06/17/19 07:42 Dose: 5 mg Documented by: [id number] Aspirin (Ecotrin Ectab) 81 [facility] [place]: 07/17/19 08:59 Last Admin: 06/18/19 08:13 Dose: 81 mg Documented by: [id number] Admin: 06/17/19 07:42 Dose: 81 mg Documented by: [id number] Atenolol (Tenormin) 50 [facility] [place]: 07/17/19 08:59 Last Admin: 06/18/19 08:12 Dose: 50 mg Documented by: [id number] Admin: 06/17/19 07:43 Dose: 50 mg Documented by: [id number] Atorvastatin Calcium (Lipitor) 20 mg PO QPM [facility] Stop: 07/16/19 20:59 Last Admin: 06/17/19 21:56 Dose: 20 mg Documented by: [id number] Admin: 06/16/19 22:13 Dose: 20 mg Documented by: [id number] Furosemide (Lasix) Confirm Administered Dose 40 mg IV .[facility] Stop: 06/16/19 15:45 Last Admin: 06/16/19 15:47 Dose: Not Given Documented by: [id number] Furosemide 20 mg/ Syringe 2 mls @ 4 mls/min IV ONE ONE Stop: 06/16/19 15:13 Last Admin: 06/16/19 15:47 Dose: 4 mls/min Documented by: [id number] Warfarin Sodium (Coumadin) 5 mg PO NOW ONE Stop: 06/16/19 18:35 Last Admin: 06/16/19 19:04 Dose: 5 mg Documented by: [id number] Cosigned by: [id number] Warfarin Sodium (Coumadin) 5 mg PO DAILY@1600 [facility] Stop: 07/17/19 08:59 Last Admin: 06/17/19 17:17 Dose: 5 mg Documented by: [id number] Admin: 06/17/19 07:42 Dose: 5 mg Documented by: [id number] Medical Decision Making Differential Diagnosis Differential diagnosis: Etiologies such as fracture, dislocation, neurovascular compromise, compartment syndrome, soft tissue injury, as well as others were entertained. Medical Records Attestation: I reviewed the patient's medical records. Home Medications Current Medication List: was personally reviewed by me Laboratory Data Attestation: I reviewed the patient's lab results. Result diagrams: 06/17/19 05:20 06/18/19 09:17 Lab Results 06/16/19 06/16/19 06/16/19 Range/Units 12:35 12:35 12:35 WBC 8.05 (4.8-10.8) K/uL RBC 4.07 L (4.7-6.1) M/uL Hgb 12.4 L (14.0-18.0) g/dL Hct 37.8 L (42-52) % MCV 92.9 (80-100) fL MCH 30.5 (25-34) pg MCHC 32.8 (32-36) g/dL RDW Std Deviation 51.3 H (36.4-46.3) fL RDW Coeff of Flor 15.0 H (11.5-14.5) % Plt Count 190 (130-400) K/uL MPV 8.9 (7.4-10.4) fL Immature Gran % (Auto) 0.2 % Neut % (Auto) 77.5 % Lymph % (Auto) 12.2 % Cole % (Auto) 8.7 % Eos % (Auto) 1.2 % Baso % (Auto) 0.2 % Immature Gran # (Auto) 0.02 (0.00-0.02) K/uL Neut # (Auto) 6.23 (1.4-6.5) K/uL Lymph # (Auto) 0.98 L (1.2-3.4) K/uL Cole # (Auto) 0.70 H (0.11-0.59) K/uL Eos # (Auto) 0.10 (0-0.5) K/uL Baso # (Auto) 0.02 (0-0.2) K/uL PT 13.0 H (9.0-12.0) Seconds INR 1.3 H (0.9-1.1) APTT 26.8 (21.0-31.0) Seconds PTT Ratio 1.0 Sodium 139 (136-145) mmol/L Potassium 4.0 (3.5-5.1) mmol/L Chloride 105 (98-107) mmol/L Carbon Dioxide 28 (21-32) mmol/L Anion Gap 6.0 (3-11) BUN 19 H (7-18) mg/dl Creatinine 1.16 (0.6-1.4) mg/dl Est Cr Clr Drug Dosing Not Reportable Est GFR ( Amer) 66.2 Est GFR (Non-Af Amer) 57.1 BUN/Creatinine Ratio 16.5 (10-20) Glucose 135 H (70-99) mg/dl Calcium 9.0 (8.5-10.1) mg/dl Troponin I < 0.015 (0-0.045) ng/ml NT-Pro-B Natriuret Pep 2738 H (0-1800) pg/ml Urine Color Urine Appearance (Clear) Urine pH (4.5-7.5) Ur Specific [place] (1.000-1.030) Urine Protein (Negative) Urine Glucose (UA) (Negative) Urine Ketones (Negative) Urine Blood (Negative) Urine Nitrite (Negative) Urine Bilirubin (Negative) Urine Urobilinogen (Negative) Ur Leukocyte Esterase (Negative) Urine WBC (Auto) (0-5) /hpf Urine RBC (Auto) (0-4) /hpf U Hyaline Cast (Auto) (0-5) /lpf U Epithel Cells (Auto) (0-5) /lpf Urine Bacteria (Auto) (Negative) 06/16/19 Range/Units 16:00 WBC (4.8-10.8) K/uL RBC (4.7-6.1) M/uL Hgb (14.0-18.0) g/dL Hct (42-52) % MCV (80-100) fL MCH (25-34) pg MCHC (32-36) g/dL RDW Std Deviation (36.4-46.3) fL RDW Coeff of Flor (11.5-14.5) % Plt Count (130-400) K/uL MPV (7.4-10.4) fL Immature Gran % (Auto) % Neut % (Auto) % Lymph % (Auto) % Cole % (Auto) % Eos % (Auto) % Baso % (Auto) % Immature Gran # (Auto) (0.00-0.02) K/uL Neut # (Auto) (1.4-6.5) K/uL Lymph # (Auto) (1.2-3.4) K/uL Cole # (Auto) (0.11-0.59) K/uL Eos # (Auto) (0-0.5) K/uL Baso # (Auto) (0-0.2) K/uL PT (9.0-12.0) Seconds INR (0.9-1.1) APTT (21.0-31.0) Seconds PTT Ratio Sodium (136-145) mmol/L Potassium (3.5-5.1) mmol/L Chloride (98-107) mmol/L Carbon Dioxide (21-32) mmol/L Anion Gap (3-11) BUN (7-18) mg/dl Creatinine (0.6-1.4) mg/dl Est Cr Clr Drug Dosing Est GFR ( Amer) Est GFR (Non-Af Amer) BUN/Creatinine Ratio (10-20) Glucose (70-99) mg/dl Calcium (8.5-10.1) mg/dl Troponin I (0-0.045) ng/ml NT-Pro-B Natriuret Pep (0-1800) pg/ml Urine Color Yellow Urine Appearance Cloudy A (Clear) Urine pH 8.0 H (4.5-7.5) Ur Specific [place] 1.014 (1.000-1.030) Urine Protein Negative (Negative) Urine Glucose (UA) Negative (Negative) Urine Ketones Negative (Negative) Urine Blood Negative (Negative) Urine Nitrite Negative (Negative) Urine Bilirubin Negative (Negative) Urine Urobilinogen Negative (Negative) Ur Leukocyte Esterase Negative (Negative) Urine WBC (Auto) 0 (0-5) /hpf Urine RBC (Auto) 0-4 (0-4) /hpf U Hyaline Cast (Auto) 0 (0-5) /lpf U Epithel Cells (Auto) 0-5 (0-5) /lpf Urine Bacteria (Auto) Negative (Negative) Imaging Data Radiologist's Impression: Radiology results as stated below per my review and the radiologist's interpretation: XR chest 1V portable CLINICAL HISTORY: elevated BNP, le edema pain. Edema. COMPARISON STUDY: 05/23/2019 FINDINGS: Improved atelectatic changes left base. Mild stable cardiomegaly. Median sternotomy. Right lung is clear. IMPRESSION: Mild improvement of the atelectatic changes left base. The above report was generated using voice recognition software. It may contain grammatical, syntax or spelling errors. Electronically signed by: Daniel Mandel M.D. 06/16/2019 2:07 PM XR hip RT 2-3V w pelvis CLINICAL HISTORY: hip pain, recent fx COMPARISON: 05/17/2019 DISCUSSION: Total right hip arthroplasty. Good contact between the metallic prosthetic and underlying bone. Avulsion of the greater trochanter which has been described previously. No acute or superimposed process. There is no evidence for soft tissue swelling. IMPRESSION: Negative study post total right hip arthroplasty. Avulsion of the greater trochanter which has been present previously The above report was generated using voice recognition software. It may contain grammatical, syntax or spelling errors. Electronically signed by: Daniel Mandel M.D. 06/16/2019 1:14 PM BILATERAL LOWER EXTREMITY VENOUS DOPPLER HISTORY: Lower extremity edema. COMPARISON STUDY: None. FINDINGS: There is normal compressibility, flow, and augmentation within the bilateral lower extremity deep venous systems. IMPRESSION: No DVT within the right or left lower extremity. Electronically signed by: Volodymyr Lucas M.D. 06/16/2019 2:[address] hip RT wo con CT DOSE: 248.45 mGy.cm CLINICAL HISTORY: Severe right hip pain. Inability to bear weight. TECHNIQUE: Helical images were acquired in the transverse plane. Sagittal and coronal reformatted images were reviewed. A dose lowering technique was utilized adhering to the principles of ALARA. COMPARISON STUDY: May 17, 2019 FINDINGS: There are postsurgical changes of a total right hip arthroplasty. There is beam hardening metallic artifact. There is no evidence for dislocation. The 2 acetabular screws extend through the bone. Anterior screw enters the iliacus muscle. The posterior screw enters the gluteus minimus muscle. A fracture of the greater trochanter extending to the proximal femoral shaft is again visualized. Correlate callus formation/intramuscular ossification is evident. There are vascular calcifications present. IMPRESSION: 1. Total right hip arthroplasty 2. No change in the orientation of the greater trochanteric fracture which extends to the level of the arthroplasty and proximal femoral shaft 3. Early callus for patients/muscular ossification is evident 4. No evidence of dislocation 5. The 2 acetabular screws are again noted to extend to the soft tissues, anteri marbin into the iliacus muscle and posteriorly into the gluteus medius muscle Electronically signed by: Hill Howard M.D. 06/16/2019 4:24 PM Blood Pressure Blood Pressure Findings: Normal blood pressure MDM Narrative Pt here well appearing despite c/o. Recent fall and non operative fx noted to which pt went to rehab for and was doing well until this am. Pt still with difficulty bearing weight and increased pain. Due to concern for living situation, I involved case mgmt to inquire about return to rehab. This was not an option at this time so hospitalist team was contacted for observation overnight and hopeful return to rehab tomorrow. VS stable throughout. No evidence of new trauma. No evidence of infection, including UTI despite reported frequency. Pt was given additional coumadin here as he had a low INR and admitted to missing meds the last 3 days since he arrived home. No evidence of LE dvt. Pt with mildly elevated BNP, however no evidence of overt pulmonary edema or CHF. Pt given 1 dose of lasix in the ED. Likely elevated BNP chronic in the pt given hx of CAD and chronic diastolic dysfunction. Pt made aware of all results and in agreement with the plan. Impression & Plan Hip pain, right, Bilateral lower extremity edema, Ambulatory dysfunction Discharge Plan Visit Data *Final* Discharge Date/Time: 06/16/19 20:04 Chief Complaint: Hip Pain Stated Complaint: RIGHT HIP PAIN ED Provider: Dionna Webster Discharge Problem: Hip pain, right, Bilateral lower extremity edema, Ambulatory dysfunction Patient Disposition: Admitted As Inpatient Discharge Instructions Interventions: ED Discharge Assessment Last Done: 06/16/19 20:04 The scribe's documentation has been prepared under my direction and personally reviewed by me in its entirety. I confirm that the note above accurately reflects all work, treatment, procedures, and medical decision making performed by me.
[2019-06-16] MEDS ORDERED: WARFARIN SOD 5 MG TAB PO ONE (18:34)
--- NOTE | 2019-06-16 19:23 | History & Physical Report ---
Date of Service June 16, 2019 Assessment & Plan (1) Ambulatory dysfunction: (2) Fracture of prosthetic hip: -Admit to [facility] -Patient presenting from home with reports of sudden inability to bear weight on his right leg; recently admitted to [facility] 05/17 through 05/26 for a fall and was found to have a fracture of his right prosthetic hip, was evaluated by orthopedics and nonoperative measures were recommended, patient was discharged to rehab -CT in the ED shows an unchanged fracture of the right prosthetic hip -Ortho consult, input appreciated -PT/OT -Case management for possible readmission to rehab (3) Chronic diastolic CHF (congestive heart failure): -Echo 04/2019 -EF 60 to 65%, grade 2 diastolic dysfunction -Received furosemide 20 mg IV in the ED for lower extremity edema -Consider further IV diuresis after evaluation in the morning (4) Atrial fibrillation: -Rate controlled on atenolol, continue -Anticoagulated on Coumadin, INR 1.3 -patient reports not taking his Coumadin since being discharged from rehab because he forgot -Start Coumadin 5 mg daily, monitor INR (5) Hypertension: -BP controlled, continue atenolol and amlodipine (6) Coronary artery disease: -Stable, no reports of chest pain -Continue aspirin, statin, beta-rain (7) DVT prophylaxis: -SCDs when INR <2.0 History of Present Illness Chief Complaint: Inability to ambulate Primary Care Provider: Mateo Funk MD 84-year-old male who presents to the ED with inability to ambulate. Patient recently admitted to [facility] 05/16 through 05/26 for pneumonia, new onset atrial fibrillation, right prosthetic hip fracture. Patient completed IV antibiotics for the pneumonia while admitted. For the atrial fibrillation, he was continued on his home dose of atenolol and also started on anticoagulation with Coumadin. Orthopedics evaluated the patient for the right prosthetic hip fracture and nonoperative measures were recommended. Patient was discharged to [facility] for rehab. He was discharged from there 3 days ago. Patient reports he had been doing well until this morning when he fell he was unable to bear weight on his right leg. He denies any further falls. Patient reports he otherwise been feeling well. No chest pain or shortness of breath. He denies lightheadedness, dizziness, diaphoresis, syncopal events. No abdominal pain, nausea, vomiting, diarrhea. No fevers or chills. He denies any urinary symptoms. In the ED, patient's work-up is essentially unremarkable. CT of the hip is unchanged from prior. INR is subtherapeutic at 1.3, patient reports not taking his Coumadin since leaving rehab because he forgot. Patient was given Tylenol. He was also given furosemide 20 mg IV for lower extremity edema. Allergies Allergy/AdvReac Type Severity Reaction Status Date / Time No Known Allergies Allergy . Verified 06/16/19 13:59 Home Medications Home Medications Medication Instructions Recorded Confirmed Type amlodipine 5 mg PO QAM 04/09/19 06/16/19 History aspirin 81 mg PO QAM 04/09/19 06/16/19 History atenolol 50 mg PO QAM 04/09/19 06/16/19 History atorvastatin 20 mg PO QPM 04/09/19 06/16/19 History warfarin 5 mg PO DAILY #30 tab 05/26/19 06/16/19 Rx Past Med/Surg History Medical History Chronic diastolic CHF (congestive heart failure) (Chronic) Atrial fibrillation (Chronic) Coronary artery disease (Chronic) Hematuria, gross (Resolved 09/23/14) Hypertension (Chronic) Strain of tendon of right rotator cuff (Resolved) Surgical History History of total right hip replacement (Chronic) History of tonsillectomy and adenoidectomy (Chronic) S/P TURP (Chronic) S/P triple vessel bypass (Chronic) Family History Brother Brain cancer Social History Preferred Language: Marshallese Communication Ability: Effective Visual Impairment: No Limitations Hearing Ability: Normal Equipment Technician Required: No Beliefs That Will Affect Care: Jainism Jainism Beliefs: Orthodox Current Living Situation: Spouse and Family Current Living Situation Comment: son lives with pt Other Information That Helps Us Care for You: No Feels Safe at Home: Yes Safety Concerns: Feels Safe At This Time Smoking Status: Former smoker Do You Dip or Chew Tobacco: No Smoking End Date: ~ 24 years old Hx Alcohol Use: Yes Alcohol type: beer Hx Substance Use: No Review of Systems Review of Systems: ROS per HPI, all other systems reviewed and negative Physical Exam Physical Exam: Please refer to Dr. Owen's addendum for physical exam Results & Data Vital Signs (Past 12 Hours) Vital Signs Temp Pulse Pulse Resp BP BP Pulse Ox 06/16/19 19:00 96 H 20 148/89 H 98 06/16/19 18:13 87 20 137/95 98 06/16/19 17:20 84 21 161/96 H 97 06/16/19 16:08 75 20 142/99 H 96 06/16/19 15:00 83 17 149/87 H 97 06/16/19 11:44 36.4 C L 91 H 20 138/90 98 Laboratory Results Short CBC 06/16/19 Range/Units 12:35 WBC 8.05 (4.8-10.8) K/uL Hgb 12.4 L (14.0-18.0) g/dL Hct 37.8 L (42-52) % Plt Count 190 (130-400) K/uL BMP 06/16/19 12:35 Sodium 139 Potassium 4.0 Chloride 105 Carbon Dioxide 28 BUN 19 H Creatinine 1.16 Glucose 135 H Calcium 9.0 Cardiac Enzymes 06/16/19 Range/Units 12:35 Troponin I < 0.015 (0-0.045) ng/ml Urine 06/16/19 Range/Units 16:00 Urine Color Yellow Urine Appearance Cloudy A (Clear) Urine pH 8.0 H (4.5-7.5) Ur Specific [place] 1.014 (1.000-1.030) Urine Protein Negative (Negative) Urine Glucose (UA) Negative (Negative) Diagnostic Findings HIP/PELVIS X-RAY IMPRESSION: Negative study post total right hip arthroplasty. Avulsion of the greater trochanter which has been present previously CXR IMPRESSION: Mild improvement of the atelectatic changes left base. BILATERAL LOWER EXTREMITY VENOUS DOPPLER IMPRESSION: No DVT within the right or left lower extremity. HIP CT IMPRESSION: 1. Total right hip arthroplasty 2. No change in the orientation of the greater trochanteric fracture which extends to the level of the arthroplasty and proximal femoral shaft 3. Early callus for patients/muscular ossification is evident 4. No evidence of dislocation 5. The 2 acetabular screws are again noted to extend to the soft tissues, anteriorly into the iliacus muscle and posteriorly into the gluteus medius muscle Code Status & VTE Plan Code Status Patient is a full code as per my discussion with him. VTE Prophylaxis Plan VTE Prophylaxis will be ordered: Yes Supervising Physician Co-Signing Physician Notes I saw this patient with the Nurse Practitioner, I participated in the history, physical, review of systems, and physical exam. I reviewed the medications with the patient and the Nurse Practitioner and helped reconcile the medications. I helped take a detailed family and social history as well. I formulated the assessment and plan personally with the Nurse Practitioner went over it with the patient. ROS-No Headache, No Visual Changes, No Nausea, No Vomiting, No Fever, No Chills, No Neck Pain or Stiffness, No Chest Pain, No Palpitations, No SOB, No SUAZO, No Cough, No Sputum, No Wheezing, No Abdominal Pain, No Diarrhea, No Hematemesis, No Hemoptysis, No Unexpected Weight Loss, No Flank pain, No Melena, No Hematoc hezia, No Frequency, No Urgency, No Burning, No Hematuria, No Rashes, No Diaphoresis. Appetite is Normal, RLE gave out, did not fall. Physical Exam Gen-AAO x 3, NAD, Afebrile Head-NCAT, EOMI, PERRLA, Anicteric Sclera, No Posterior Pharyngeal Erythema Neck-Supple, No JVD, No Thyromegaly, No Masses, No LAD, No Bruits Lungs-Clear to Auscultation Bilaterally, No Rales, No Rhonchi, No Wheezing, No Crepitus Chest-No S4, +S1, +S2, No S3, No Murmurs, No Rubs, No Gallops, No Ectopy Abdomen-Soft, Bowel Sounds Present, Non Tender, Non Distended, No Hepatomegaly, No Splenomegaly, No Palpable Masses, No Rebound, No Rigidity, No Guarding Musculoskeletal-Full Range of Motion Bilaterally, No CVAT Extremities-No Cyanosis, No Clubbing, 2+ Pitting Edema Bilaterally Nuero-Cranial Nerves II-XII grossly intact, Motor WNL, DTRs WNL, Strength WNL, Non Focal Psych-Normal Mood (1) Fracture of prosthetic hip Encounter type: initial encounter Qualified Code(s): T84.019A - Broken internal joint prosthesis, unspecified site, initial encounter; Z96.649 - Presence of unspecified artificial hip joint
[2019-06-16] MEDS ORDERED: ACETAMINOPHEN 325 MG TAB PO PRN (20:22)
[2019-06-16] MEDS: ATORVASTATIN 20 MG TAB PO SCH (22:13)
[2019-06-17 05:47] LABS: Hematocrit (blood only) 38.6 % (42-52); Hemoglobin 12.8 g/dL (14.0-18.0); Mean Corpuscular Hgb Conc 33.2 g/dL (32-36); Mean Corpuscular Volume 94.4 fL (80-100); Mean Platelet Volume 9.1 fL (7.4-10.4); Platelet Count 203 K/uL (130-400); RDW Standard Deviation 51.3 fL (36.4-46.3); Red Blood Count 4.09 M/uL (4.7-6.1); White Blood Count 6.55 K/uL (4.8-10.8)
[2019-06-17 06:09] LABS: INR 1.2 (0.9-1.1); Prothrombin Time 12.5 Seconds (9.0-12.0)
[2019-06-17 06:28] LABS: BUN Creatinine Ratio 20.3 (10-20); Blood Urea Nitrogen 19 mg/dl (7-18); Calcium 8.8 mg/dl (8.5-10.1); Carbon Dioxide 29 mmol/L (21-32); Chloride 105 mmol/L (98-107); Est GFR (African American) 86.5; Est GFR (Non-African American) 74.6; Glucose 104 mg/dl (70-99); Potassium 3.8 mmol/L (3.5-5.1); Sodium 139 mmol/L (136-145)
[2019-06-17] MEDS: WARFARIN SOD 5 MG TAB PO SCH ×2 (07:42→17:17)
[2019-06-17] MEDS: ASPIRIN 81 MG ECTAB PO SCH (07:42)
[2019-06-17] MEDS: AMLODIPINE BESYLATE 5 MG TAB PO SCH (07:42)
[2019-06-17] MEDS: ATENOLOL 50 MG TABLET PO SCH (07:43)
--- NOTE | 2019-06-17 14:31 | Hospitalist Progress Note ---
Date of Service June 17, 2019 Assessment & Plan (1) Ambulatory dysfunction: Secondary to fracture of prosthetic right hip which was diagnosed on eighth of this month Has been getting physical therapy and rehab Was admitted yesterday with acute pain PT evaluation this morning and was advised to go back to [facility] to continue PT Awaiting Ortho evaluation before discharge (2) Fracture of prosthetic hip: -Patient presenting from home with reports of sudden inability to bear weight on his right leg; recently admitted to [facility] 05/17 through 05/26 for a fall and was found to have a fracture of his right prosthetic hip, was evaluated by orthopedics and nonoperative measures were recommended, patient was discharged to rehab -CT in the ED shows an unchanged fracture of the right prosthetic hip -Ortho consult, input appreciated -PT/OT -Case management for possible readmission to rehab (3) Chronic diastolic CHF (congestive heart failure): -Echo 04/2019 -EF 60 to 65%, grade 2 diastolic dysfunction -Received furosemide 20 mg IV in the ED for lower extremity edema -Consider further IV diuresis after evaluation in the morning -Has had enough diuresis -Leg swelling has almost resolved (4) Atrial fibrillation: -Rate controlled on atenolol, continue -Anticoagulated on Coumadin, INR 1.3 -patient reports not taking his Coumadin since being discharged from rehab because he forgot -Start Coumadin 5 mg daily, monitor INR-1.2 today -We will continue Coumadin for now (5) Hypertension: -BP controlled, continue atenolol and amlodipine (6) Coronary artery disease: -Stable, no reports of chest pain -Continue aspirin, statin, beta-rani (7) DVT prophylaxis: -SCDs when INR <2.0 Likely be discharged when cleared from Orth Subjective 06/17 The patient was seen and examined in medical floor He was admitted with ambulatory dysfunction secondary to fracture the prosthetic hip which was diagnosed one 05/26 following a fall after the joint surgery Complaining of sudden inability to bear weight on the right leg Denies any significant pain during examination He underwent physical therapy evaluation during this admission Review of Systems Review of Systems: All systems reviewed and are unremarkable except as noted Musculoskeletal: No significant pain on ambulation today Physical Exam Physical Exam: No apparent distress at rest Constitutional: well developed and well nourished; no acute distress Eyes: PERRL, conjunctivae normal, anicteric sclerae ENMT: external ear and nose normal, oropharynx normal Neck: trachea midline, no thyromegaly Respiratory: normal respiratory effort; no respiratory distress Auscultation: lungs clear to auscultation bilaterally Cardiovascular: Rate/Rhythm: regular rate and regular rhythm Gastrointestinal (Abdomen): Inspection/Auscultation: abdomen normal to inspection Percussion/Palpation: abdomen soft; abdomen nontender Musculoskeletal: No acute arthritis in any of the joints Results & Data Vital Signs (Past 12 Hours) Vital Signs Temp Pulse Resp BP Pulse Ox 06/17/19 06:55 36.5 C 78 18 152/90 H 95 Laboratory Results Short CBC 06/17/19 Range/Units 05:20 WBC 6.55 (4.8-10.8) K/uL Hgb 12.8 L (14.0-18.0) g/dL Hct 38.6 L (42-52) % Plt Count 203 (130-400) K/uL BMP 06/17/19 05:20 Sodium 139 Potassium 3.8 Chloride 105 Carbon Dioxide 29 BUN 19 H Creatinine 0.93 Glucose 104 H Calcium 8.8 Urine 06/16/19 Range/Units 16:00 Urine Color Yellow Urine Appearance Cloudy A (Clear) Urine pH 8.0 H (4.5-7.5) Ur Specific [place] 1.014 (1.000-1.030) Urine Protein Negative (Negative) Urine Glucose (UA) Negative (Negative) Medications Administered Current Inpatient Medications Acetaminophen (Tylenol) 650 mg PO Q4H PRN PRN Reason: pain/fever Stop: 07/16/19 20:21 Amlodipine Besylate (Norvasc) 5 mg PO [facility] Stop: 07/17/19 08:59 Last Admin: 06/17/19 07:42 Dose: 5 mg Documented by: Aspirin (Ecotrin Ectab) 81 mg PO [facility] Stop: 07/17/19 08:59 Last Admin: 06/17/19 07:42 Dose: 81 mg Documented by: [facility]in) [facility] Stop: 07/17/19 08:59 Last Admin: 06/17/19 07:43 Dose: 50 mg Documented by: Atorvastatin Calcium (Lipitor) 20 mg PO QPM [facility] Stop: 07/16/19 20:59 Last Admin: 06/16/19 22:13 Dose: 20 mg Documented by: Warfarin Sodium (Coumadin) 5 mg PO DAILY@1600 [facility] Stop: 07/17/19 08:59 Last Admin: 06/17/19 07:42 Dose: 5 mg Documented by: (1) Fracture of prosthetic hip Encounter type: initial encounter Qualified Code(s): T84.019A - Broken internal joint prosthesis, unspecified site, initial encounter; Z96.649 - Presence of unspecified artificial hip joint
[2019-06-17] MEDS: ATORVASTATIN 20 MG TAB PO SCH (21:56)
--- NOTE | 2019-06-18 01:07 | Consultation Report ---
DATE: 06/17/2019 SUBJECTIVE CHIEF COMPLAINT: Presents to [facility] on the date of 06/16/2019 with pain in his right hip. He was initially seen and treated by Dr. Fuentes on 05/26/2019 with a fall. He has sustained a periprosthetic fracture in his right hip. He spent subsequent time in [facility], did very well with physical therapy and was up and ambulating without discomfort at the time of discharge, which was 3 days ago. He states that he was up and walking and doing a lot of stuff at home the last couple days. He thinks he overdid it. He has had a lot of pain on the lateral aspect of his right hip and radiates down into his knee. It was bad enough that he did present to [facility] yesterday and was subsequently admitted to the hospitalist service. At our consultation, he was sitting in a chair comfortably. He has been up and ambulating; however, he has some slight pain in the lateral aspect of his hip. No description of any pain, numbness, tingling that is radiating down his right lower extremity. OBJECTIVE PHYSICAL EXAMINATION: He is able to stand and ambulate with the use of a walker. He is in a slight amount of pain with ambulation. While lying supine, he is able to actively flex his right hip. He has no pain with forced internal and external rotation of the right hip. Leg lengths are equal. CURRENT VITAL SIGNS: Blood pressure is 126/70, pulse is 85, respiratory rate is 18, temperature is 36.6, O2 sats are 96% on room air. ASSESSMENT: Pain associated with exacerbation of a periprosthetic femur fracture. PLAN: At this time, as far as an orthopedic standpoint, he can be discharged to a rehab facility. Encouraged some physical therapy to be opening up and ambulating. He could be weightbearing as tolerated; however, we did to discourage active abduction on his part with his right hip. We will follow him up to see Dr. Fuentes as previously scheduled. Dr. Fuentes was present for the physical examination in the interview and is in agreement with the assessment and plan. CHRISTIE
[2019-06-18] MEDS: AMLODIPINE BESYLATE 5 MG TAB PO SCH (08:12)
[2019-06-18] MEDS: ATENOLOL 50 MG TABLET PO SCH (08:12)
[2019-06-18] MEDS: ASPIRIN 81 MG ECTAB PO SCH (08:13)
--- NOTE | 2019-06-18 08:40 | Hospitalist Progress Note ---
Date of Service June 18, 2019 Assessment & Plan (1) Ambulatory dysfunction: per Dr. Kunz's notes: Ambulatory Dysfunction -Patient presenting from home with reports of sudden inability to bear weight on his right leg; recently admitted to [facility] 05/17 through 05/26 for a fall and was found to have a fracture of his right prosthetic hip, was evaluated by orthopedics and nonoperative measures were recommended, patient was discharged to rehab CT Hip: 1. Total right hip arthroplasty 2. No change in the orientation of the greater trochanteric fracture which extends to the level of the arthroplasty and proximal femoral shaft 3. Early callus for patients/muscular ossification is evident 4. No evidence of dislocation 5. The 2 acetabular screws are again noted to extend to the soft tissues, anteriorly into the iliacus muscle and posteriorly into the gluteus medius muscle evaluated by Ortho Service- DILSHAD Del Cid, Dr. Fuentes no surgical intervention recommended at this time follow up with Dr. Fuentes as scheduled continue PT/OT in [facility] Fall precautions please (2) Fracture of prosthetic hip: management as noted above (3) Chronic diastolic CHF (congestive heart failure): -Echo 04/2019 -EF 60 to 65%, grade 2 diastolic dysfunction -Received furosemide 20 mg IV in the ED for lower extremity edema -Leg swelling resolved monitor volume status closely Lasix PRN for volume overload (4) Atrial fibrillation: -Rate controlled on atenolol, continue -Anticoagulated on Coumadin, INR 1.3 -patient reports not taking his Coumadin since being discharged from rehab because he forgot Coumadin 5 mg daily restarted INR pending monitor INR daily and titrate coumadin accordingly (5) Hypertension: -BP controlled, continue atenolol and amlodipine (6) Coronary artery disease: -Stable, no reports of chest pain -Continue aspirin, statin, beta-rain (7) DVT prophylaxis: -SCDs when INR <2.0 [facility] to [facility] follow up with Orthopedic MD Dr. Fuentes in 1-2 weeks follow up with Primary Care Physician in 1 week Subjective ff up for right hip pain seen resting in bed, comfortable in good spirits states he feels fine overall denies right hip pain ambulates with no problems as per patient denies chest pain, dyspnea, dizziness, nausea/vomiting no bleeding no other symptoms states he is ready and would like to be discharged today Review of Systems Review of Systems: All systems reviewed & are unremarkable except as noted in HPI & below Physical Exam Physical Exam: General- oriented x 3, not in distress, speaks in sentences with no effort or accessory muscle use Head- atraumatic Eyes- PERRL, EOMI, anicteric ENT- oropharynx clear Neck- supple, no JVD, no adenopathy, no thyromegaly; carotids +2/2, no bruits appreciated Lungs- clear to auscultation bilaterally, no rales/wheezes Heart- normal rate, irregularly irregular rhythm; no murmur, no gallop, no rub appreciated Abdomen- normal bowel sounds, nondistended, soft, nontender, no masses or hepatosplenomegaly Extremities- no pretibial edema, no calf tenderness; peripheral pulses intact Neuro- alert, oriented x 3; CN 2-12 grossly intact; motor 5/5 bilaterally;sensation 100% on all extremities; no other gross focal neurologic deficits Skin- warm & dry Results & Data Vital Signs (Past 12 Hours) Vital Signs Temp Pulse Resp BP BP Pulse Ox 06/18/19 07:14 36.4 C L 98 H 20 149/83 H 97 06/17/19 23:00 36.5 C 90 22 136/91 96 Laboratory Results pending, will review (1) Fracture of prosthetic hip Encounter type: initial encounter Qualified Code(s): T84.019A - Broken internal joint prosthesis, unspecified site, initial encounter; Z96.649 - Presence of unspecified artificial hip joint
--- NOTE | 2019-06-18 08:53 | Discharge Summary ---
Date of Service June 18, 2019 Admission HPI Per Admitting Provider 84-year-old male who presents to the ED with inability to ambulate. Patient recently admitted to [facility] 05/16 through 05/26 for pneumonia, new onset atrial fibrillation, right prosthetic hip fracture. Patient completed IV antibiotics for the pneumonia while admitted. For the atrial fibrillation, he was continued on his home dose of atenolol and also started on anticoagulation with Coumadin. Orthopedics evaluated the patient for the right prosthetic hip fracture and nonoperative measures were recommended. Patient was discharged to [facility] for rehab. He was discharged from there 3 days ago. Patient reports he had been doing well until this morning when he fell he was unable to bear weight on his right leg. He denies any further falls. Patient reports he otherwise been feeling well. No chest pain or shortness of breath. He denies lightheadedness, dizziness, diaphoresis, syncopal events. No abdominal pain, nausea, vomiting, diarrhea. No fevers or chills. He denies any urinary symptoms. In the ED, ian cade's work-up is essentially unremarkable. CT of the hip is unchanged from prior. INR is subtherapeutic at 1.3, patient reports not taking his Coumadin since leaving rehab because he forgot. Patient was given Tylenol. He was also given furosemide 20 mg IV for lower extremity edema. Admission Exam Per Admitting Provider Gen-AAO x 3, NAD, Afebrile Head-NCAT, EOMI, PERRLA, Anicteric Sclera, No Posterior Pharyngeal Erythema Neck-Supple, No JVD, No Thyromegaly, No Masses, No LAD, No Bruits Lungs-Clear to Auscultation Bilaterally, No Rales, No Rhonchi, No Wheezing, No Crepitus Chest-No S4, +S1, +S2, No S3, No Murmurs, No Rubs, No Gallops, No Ectopy Abdomen-Soft, Bowel Sounds Present, Non Tender, Non Distended, No Hepatomegaly, No Splenomegaly, No Palpable Masses, No Rebound, No Rigidity, No Guarding Musculoskeletal-Full Range of Motion Bilaterally, No CVAT Extremities-No Cyanosis, No Clubbing, 2+ Pitting Edema Bilaterally Nuero-Cranial Nerves II-XII grossly intact, Motor WNL, DTRs WNL, Strength WNL, Non Focal Psych-Normal Mood Principal Diagnosis ACUTE RIGHT HIP PAIN, HISTORY OF RIGHT HIP PROSTHETIC FRACTURE Discharge Exam General- oriented x 3, not in distress, speaks in sentences with no effort or accessory muscle use Head- atraumatic Eyes- PERRL, EOMI, anicteric ENT- oropharynx clear Neck- supple, no JVD, no adenopathy, no thyromegaly; carotids +2/2, no bruits appreciated Lungs- clear to auscultation bilaterally, no rales/wheezes Heart- normal rate, irregularly irregular rhythm; no murmur, no gallop, no rub appreciated Abdomen- normal bowel sounds, nondistended, soft, nontender, no masses or hepatosplenomegaly Extremities- no pretibial edema, no calf tenderness; peripheral pulses intact Neuro- alert, oriented x 3; CN 2-12 grossly intact; motor 5/5 bilaterally;sensation 100% on all extremities; no other gross focal neurologic deficits Skin- warm & dry Discharge Data Allergies Allergy/AdvReac Type Severity Reaction Status Date / Time No Known Allergies Allergy . Verified 06/16/19 13:59 Consultations 06/16/19 18:33 ED Decision to Admit Stat 06/16/19 20:22 Consult Case Management - Discharge Planning Routine Consult Orthopedic Surgery Routine Ordered Studies 06/16/19 13:36 US venous doppler LE BI Stat BILATERAL LOWER EXTREMITY VENOUS DOPPLER HISTORY: Lower extremity edema. COMPARISON STUDY: None. FINDINGS: There is normal compressibility, flow, and augmentation within the bilateral lower extremity deep venous systems. IMPRESSION: No DVT within the right or left lower extremity. 06/16/19 15:11 CT hip RT wo con Stat CT hip RT wo con CT DOSE: 248.45 mGy.cm CLINICAL HISTORY: Severe right hip pain. Inability to bear weight. TECHNIQUE: Helical images were acquired in the transverse plane. Sagittal and coronal reformatted images were reviewed. A dose lowering technique was utilized adhering to the principles of ALARA. COMPARISON STUDY: May 17, 2019 FINDINGS: There are postsurgical changes of a total right hip arthroplasty. There is beam hardening metallic artifact. There is no evidence for dislocation. The 2 acetabular screws extend through the bone. Anterior screw enters the iliacus muscle. The posterior screw enters the gluteus minimus muscle. A fracture of the greater trochanter extending to the proximal femoral shaft is again visualized. Correlate callus formation/intramuscular ossification is evident. There are vascular calcifications present. IMPRESSION: 1. Total right hip arthroplasty 2. No change in the orientation of the greater trochanteric fracture which extends to the level of the arthroplasty and proximal femoral shaft 3. Early callus for patients/muscular ossification is evident 4. No evidence of dislocation 5. The 2 acetabular screws are again noted to extend to the soft tissues, anteriorly into the iliacus muscle and posteriorly into the gluteus medius muscle Electronically signed by: Hill Howard M.D. 06/16/2019 4:24 PM Hospital Course (1) Ambulatory dysfunction: per Dr. Kunz's notes: Ambulatory Dysfunction -Patient presenting from home with reports of sudden inability to bear weight on his right leg; recently admitted to [facility] 05/17 through 05/26 for a fall and was found to have a fracture of his right prosthetic hip, was evaluated by orthopedics and nonoperative measures were recommended, patient was discharged to rehab CT Hip: 1. Total right hip arthroplasty 2. No change in the orientation of the greater trochanteric fracture which extends to the level of the arthroplasty and proximal femoral shaft 3. Early callus for patients/muscular ossification is evident 4. No evidence of dislocation 5. The 2 acetabular screws are again noted to extend to the soft tissues, anteriorly into the iliacus muscle and posteriorly into the gluteus medius muscle evaluated by Ortho Service- I[facility], Dr. Fuentes no surgical intervention recommended at this time follow up with Dr. Fuentes as scheduled continue PT/OT in [facility] Fall precautions please (2) Fracture of prosthetic hip: management as noted above (3) Chronic diastolic CHF (congestive heart failure): -Echo 04/2019 -EF 60 to 65%, grade 2 diastolic dysfunction -Received furosemide 20 mg IV in the ED for lower extremity edema -Leg swelling resolved monitor volume status closely Lasix PRN for volume overload (4) Atrial fibrillation: -Rate controlled on atenolol, continue -Anticoagulated on Coumadin, INR 1.3 -patient reports not taking his Coumadin since being discharged from rehab because he forgot Coumadin 5 mg daily restarted INR pending monitor INR daily and titrate coumadin accordingly (5) Hypertension: -BP controlled, continue atenolol and amlodipine (6) Coronary artery disease: -Stable, no reports of chest pain -Continue aspirin, statin, beta-rain (7) DVT prophylaxis: -SCDs when INR <2.0 [facility] follow up with Orthopedic MD Dr. Fuentes in 1-2 weeks follow up with Primary Care Physician in 1 week Total Time Total Time Spent Total Time Spent (In Minutes): 40 MINUTES Discharge Plan Discharge Items Patient Disposition: Transfer Inpatient Rehab Fac Reason For Visit: AMBULATORY DYSFUNCTION Discharge Diagnosis: ACUTE RIGHT HIP PAIN, HISTORY OF RIGHT HIP PROSTHETIC FRACTURE Discharge Goals: Diagnostic testing and Therapeutic intervention Activity: As commented below Activity Comment: He could be weightbearing as tolerated; see additional instructions below Lifting: Wait until after follow-up appointment Exercise/Sports: Wait until after follow-up appointment Driving/Machine Use Comment: NO Driving Non-emergency contact: Primary Care Provider and Surgeon Call non-emergency contact if: you have any medication questions, your symptoms worsen, your pain is not controlled, your pain is worsening and you have a fever Follow-up/Referrals: Arnold Fuentes MD [Surgeon] - Mateo Funk MD [Primary Care Provider] - Diet: Heart Healthy Addtl Provider Instructions: Continue PT/OT. Fall Precautions. Check INR daily and titrate Warfarin accordingly. Per Ortho: "He could be weightbearing as tolerated; however, we did to discourage active abduction on his part with his right hip." Follow up with Ortho Dr. Fuentes in 1-2 weeks. Follow up with PCP Dr. Funk in 1 week. Prescriptions: New furosemide 20 mg tablet 20 mg PO DAILY PRN (Reason: edema) Qty: 14 RF: 2 Continued atorvastatin 20 mg tablet 20 mg PO QPM RF: 0 amlodipine 5 mg tablet 5 mg PO QAM RF: 0 aspirin 81 mg Tablet,Delayed Release (Dr/Ec) 81 mg PO QAM RF: 0 atenolol 50 mg tablet 50 mg PO QAM RF: 0 warfarin 5 mg tablet 5 mg PO DAILY Qty: 30 RF: 0 Stand-Alone Forms: [facility] Discharge Orders: Discharge Order (Routine); Ordered 06/18/19 Ordered By: Sergei Lerma Skilled Items Patient informed of condition?: Yes DNR: No Discharge Level of Care: Acute rehab Communicable Disease: No Discharge Prognosis: Stable Admission Data Admit Date/Time: 06/16/19 18:58 Attending Provider: Sergei Lerma Admit Provider: Brayden,Durga Primary Care Provider: Mateo Funk Other Providers: Durga Owen ; Arnold Fuentes ; Columba Kunz Service: Medical
[2019-06-18 09:50] LABS: INR 1.3 (0.9-1.1); Prothrombin Time 13.4 Seconds (9.0-12.0)
[2019-06-18 09:51] LABS: BUN Creatinine Ratio 15.8 (10-20); Calcium 9.2 mg/dl (8.5-10.1); Creatinine Clr Calc Pharmacy 51.8 ml/min; Est GFR (African American) 74.7; Est GFR (Non-African American) 64.4
--- NOTE | 2019-06-30 09:20 | Coding Query ---
A supporting diagnosis is required for the test/procedure performed on this patient in order for us to be reimbursed by the patient's insurance. Please provide a supporting diagnosis for the following test/procedure listed below next to the test name along with your signature. *If there is no additional diagnosis for this patient that would support the following test/procedure please document that below next to the test/procedure. Test(s)/Procedure(s) that require a supporting diagnosis: Venous Doppler Lower Ext Bilat DIAGNOSIS: Provider Signature: Date: Thank you Radhika Florentino Health Information Management Once completed, please kindly fax back to [phone] For questions please call [phone] CHRISTIE
== END 2019-06-18 09:57 ==
LOC: 4W 11:37 → ED 11:37 → SUATTDRO 18:58 → 4W 20:04